=== PATIENT | female | born 1955 | race Caucasian/White ===

== ENCOUNTER 2024-09-03 12:25 | Inpatient (IN) ==
--- NOTE | 2024-09-03 13:14 | Emergency Department Note ---
Impression & Plan Acute dyspnea, Generalized weakness, Acute hypokalemia, Hypomagnesemia, Non-ST elevation MD (NSTEMI), Elevated brain natriuretic peptide (BNP) level, Acute hypoxemic respiratory failure ED Provider Note HISTORY OF PRESENT ILLNESS: Patient is a 69-year-old female presenting with weakness, cough and a fall from standing. Patient reports that for the last 4 days she has been feeling very weak and rundown. She has had a cough this been productive of some yellow- colored sputum. She states that today she was walking when she felt like her legs gave out and she fell to the ground, landing on her right knee and hip. She states that she has been short of breath over the last 4 days as well. She does not wear any supplemental oxygen at baseline. Denies any chest pain with the shortness of breath. Denies any DVT or PE history. She is not on any anticoagulation other than a baby aspirin daily. EMS reports the patient was hypotensive and hypoxic. They state her sats were 86% on room air and blood pressure was 88/42. They started the patient on 6 L supplemental oxygen and gave about 250 cc of fluid and route. On arrival to the ER, the patient does report some slight right knee pain. Denies striking her head or loss of consciousness. She denies passing out. Reports she just does not feel well. ROS: as above PHYSICAL EXAM: Constitutional: Patient appears in no acute distress. HENT: Head: Normocephalic and atraumatic. Eyes: EOMI, PERRL Ears: TM intact without erythema or bulging. External canals without erythema or discharge. Mouth/Throat: Mucous membranes moist. Neck: Trachea midline. Neck supple. No midline cervical spine tenderness to palpation Cardiovascular: RRR, No murmurs, rubs or gallops. Intact distal pulses. Pulmonary/Chest: No respiratory distress. Breath sounds clear and equal bilaterally. No wheezes or rales. Abdominal: Abdomen soft, no tenderness, rebound or guarding. Musculoskeletal: No edema, tenderness or deformity noted. Patient able to straight leg raise bilaterally. No pain with internal and external rotation of the femur. Skin: Warm and dry. No rash, erythema, pallor or cyanosis Psychiatric: Appropriate mood and affect for situation. Neurological: Alert and keenly responsive. CN II-XII grossly intact, moving all extremities equally and fully. MDM: - Vitals signs showed hypoxia. Patient placed on supplemental oxygen. - History obtained via patient. History as above. - Chronic conditions affecting care: HTN - Differential diagnoses include, but are not limited to: Congestive heart failure; acute coronary syndrome; COPD/asthma exacerbation; pulmonary edema; pulmonary embolism; pneumonia; pneumothorax; viral syndrome - Order placed for continuous cardiac monitoring. At this time, monitor showed rate of 76 bpm with normal sinus rhythm, per my interpretation. - External medical records reviewed. - EKG interpreted by myself showed normal sinus rhythm. Rate 81 bpm. QT prolonged at 432. No acute ischemic changes. - Laboratory workup interpreted by myself showed leukocytosis (WBC 13.05); thrombocytopenia (plt 81); elevated INR (1.2); hypokalemia (K 3.1); elevated troponin (567.7); elevated BNP (2036); hypomagnesemia (Mg 1.4); elevated total bilirubin (3.3) - Patient given 1g IV magnesium and 20 mEq IV potassium for electrolyte replacement. 40 mEq PO potassium also ordered. - CXR negative for pneumonia, per my interpretation - Pelvis xray negative for fracture - Xray right knee negative for injury - CT PE negative for PE. Noted to have findings concerning for pulmonary arterial hypertension, per radiologist. - Repeat troponin is still elevated but slightly trending down at 529.0 - Viral respiratory panel negative - VBG grossly unremarkable - Given patient's new oxygen requirement in the setting of her NSTEMI, will admit to hospital service. Patient will need diuresis and echocardiogram performed inpatient. - Discussion was had with leather case finisher about patient's case and need for admission - Hospitalist, Dr. Sterling, consulted for admission - [facility] ASSESSMENT AND PLAN: Diagnosis: acute dyspnea; acute hypoxemic respiratory failure; generalized weakness; acute hypokalemia; hypomagnesemia; NSTEMI; elevated BNP Plan: admit Past Med/Surg History Problem List (Updated 09/03/24 @ 15:30 by Bettina Antunez MD) Acute hypoxemic respiratory failure (Acute) Elevated brain natriuretic peptide (BNP) level (Acute) Non-ST elevation MD (NSTEMI) (Acute) Hypomagnesemia (Acute) Acute hypokalemia (Acute) Generalized weakness (Acute) Acute dyspnea (Acute) Social History Smoking Status: Never smoker Preferred Language: Jordanian Feels Safe at Home: Yes Allergies Allergies Allergy/AdvReac Type Severity Reaction Status Date / Time No Known Allergies Allergy Unverified 09/03/24 14:39 Home Meds Home Medications Medication Instructions Recorded Confirmed alprazolam 0.5 mg tablet 0.5 mg PO DAILY 09/03/24 09/03/24 levothyroxine 112 mcg tablet 112 mcg PO DAILY 09/03/24 09/03/24 multivitamin 1 tab PO DAILY 09/03/24 09/03/24 potassium 1 tab PO DAILY 09/03/24 09/03/24 propranolol 20 mg tablet 20 mg PO BID 09/03/24 09/03/24 sertraline 50 mg tablet 50 mg PO DAILY 09/03/24 09/03/24 Results & Data (ED) Vital Signs Vital Signs - 24 hr 09/03/24 12:34 09/03/24 12:34 09/03/24 13:02 Temperature 37 C Temperature Source Oral Pulse Rate 87 Pulse Rate [Apical] Pulse Rate from SpO2 Sensor Respiratory Rate 18 Blood Pressure 120/61 Blood Pressure [Right Arm] Blood Pressure Mean 80 Blood Pressure Mean [Right Arm] Pulse Oximetry 86 L 86 L Oxygen Delivery Method Room Air Nasal Cannula Room Air Oxygen Flow Rate 0 Sepsis New/Unexplained Change in Mental Status No Sepsis Action Taken by Nursing No Action Required Oxygen Flow Rate - Titration 2 Pulse Oximetry Post Tiitration 95 09/03/24 13:08 09/03/24 13:12 09/03/24 13:33 Temperature Temperature Source Pulse Rate 82 80 77 Pulse Rate [Apical] Pulse Rate from SpO2 Sensor 80 77 Respiratory Rate 23 24 Blood Pressure Blood Pressure [Right Arm] Blood Pressure Mean Blood Pressure Mean [Right Arm] Pulse Oximetry 90 90 Oxygen Delivery Method Nasal Cannula Oxygen Flow Rate 3 Sepsis New/Unexplained Change in Mental Status Sepsis Action Taken by Nursing Oxygen Flow Rate - Titration Pulse Oximetry Post Tiitration 09/03/24 13:39 09/03/24 14:06 09/03/24 14:30 Temperature Temperature Source Pulse Rate 75 Pulse Rate [Apical] 87 75 Pulse Rate from SpO2 Sensor Respiratory Rate 15 14 Blood Pressure Blood Pressure [Right Arm] 106/57 L 130/60 Blood Pressure Mean Blood Pressure Mean [Right Arm] 73 83 Pulse Oximetry 92 92 91 Oxygen Delivery Method Nasal Cannula Nasal Cannula Nasal Cannula Oxygen Flow Rate 3 3 3 Sepsis New/Unexplained Change in Mental Status Sepsis Action Taken by Nursing Oxygen Flow Rate - Titration Pulse Oximetry Post Tiitration Laboratory Data 09/03/24 12:37 09/03/24 14:13 Lab Results 09/03/24 09/03/24 09/03/24 Range/Units 12:37 13:02 14:13 WBC 13.05 H (4.8-10.8) K/ul RBC 4.63 (4.20-5.40) M/uL Hgb 15.0 (12.0-16.0) g/dl Hct 41.8 (37.0-47.0) % MCV 90.3 (80.0-100.0) fL MCH 32.4 (25.0-34.0) pg MCHC 35.9 (32.0-36.0) g/dL RDW Std Deviation 48.4 H (36.4-46.3) fL RDW Coeff of Kiley 14.6 H (11.5-14.5) % Plt Count 81 L (130-400) K/uL MPV 12.0 (9.4-12.4) fL Immature Gran % (Auto) 1.5 % Neut % (Auto) 82.4 % Lymph % (Auto) 6.8 % [place] % (Auto) 6.8 % Eos % (Auto) 2.2 % Baso % (Auto) 0.3 % Neut # (Auto) 10.74 H (1.40-6.50) K/uL Lymph # (Auto) 0.89 L (1.20-3.40) K/uL [place] # (Auto) 0.89 H (0.11-0.59) K/uL Eos # (Auto) 0.29 (0.00-0.50) K/uL Baso # (Auto) 0.04 (0.00-0.20) K/uL Immature Gran # (Auto) 0.20 (0.01-0.20) K/uL Toxic Vacuolation 3+ Platelet Estimate Decreased L (Normal) PT 13.1 H (9.0-12.0) Seconds INR 1.2 H (0.9-1.1) VBG pH 7.42 H (7.36-7.41) VBG pCO2 30 L (38-50) mmHg VBG pO2 47 mmHg VBG HCO3 20 mmol/L VBG O2 Saturation 76.8 % VBG Base Excess -3.8 mEq/L Sodium 132 L (136-145) mmol/L Potassium TNP 3.1 L Chloride 100 (98-107) mmol/L Carbon Dioxide 21 (21-32) mmol/L Anion Gap 11 (3-11) BUN 27 H (6-23) mg/dl Creatinine 1.03 (0.6-1.2) mg/dl Est Cr Clr Drug Dosing Not Reportable eGFR 58.13 BUN/Creatinine Ratio 26.2 H (10-20) Glucose 119 H (70-99(Fasting)) mg/dl Calcium 9.1 (8.6-10.3) mg/dl Magnesium 1.4 L (1.7-2.4) mg/dl Total Bilirubin 3.3 H (0.2-1.0) mg/dl AST TNP 37 ALT 18 (7-52) U/L Alkaline Phosphatase 90 (34-104) U/L Troponin I High Sens 567.7 H* 529.0 H* (0-14) pg/ml B-Natriuretic Peptide 2036 H (0-100) pg/ml Total Protein 6.1 (6.0-8.3) gm/dl Albumin 2.9 L (3.4-5.0) gm/dl Globulin 3.2 (2.5-4.0) gm/dl Albumin/Globulin Ratio 0.9 (0.9-2) Adenovirus (PCR) Not Detected (NotDetected) B. pertussis DNA (PCR) Not Detected (NotDetected) B.parapertussis DNA PCR Not Detected (NotDetected) C. pneumoniae DNA (PCR) Not Detected (NotDetected) Coronavirus OC43 (PCR) Not Detected (NotDetected) Coronavirus HKU1 (PCR) Not Detected (NotDetected) Coronavirus 229E (PCR) Not Detected (NotDetected) SARS-CoV-2 (PCR) Not Detected (NotDetected) Coronavirus NL63 (PCR) Not Detected (NotDetected) Human Metapneumovir PCR Not Detected (NotDetected) Influenza Type A (PCR) Not Detected (NotDetected) Influenza Type B (PCR) Not Detected (NotDetected) M. pneumoniae (PCR) Not Detected (NotDetected) Parainfluenza 1 (PCR) Not Detected (NotDetected) Parainfluenza 2 (PCR) Not Detected (NotDetected) Parainfluenza 3 (PCR) Not Detected (NotDetected) Parainfluenza 4 (PCR) Not Detected (NotDetected) RSV (PCR) Not Detected (NotDetected) Entero/Rhino (PCR) Not Detected (NotDetected) Administered Medications Discontinued Medications Magnesium Sulfate/Dextrose (Magnesium Sulfate / D5w) 1 gm in 100 mls @ 100 mls/hr IV NOW STA Stop: 09/03/24 14:49 Last Admin: 09/03/24 14:20 Dose: 100 mls/hr Documented By: JUAN Ioversol (Optiray 320 125ml) 118 ml IV ONCE ONE Stop: 09/03/24 14:08 Last Admin: 09/03/24 14:07 Dose: 118 ml Documented By: [facility] Imaging Data Radiologist's Impression: Chest CTA 09/03/24 12:47 CT angio chest PE protocol CT DOSE: 697.57 mGy.cm HISTORY: Dyspnea; hypoxia. TECHNIQUE: Multiple CTA images of the chest were obtained after the intravenous administration of 118 ml Optiray. Coronal and sagittal MIPS were obtained from the axial data set and were submitted for review. All measurements were obtained according to NASCET criteria. A dose lowering technique was utilized adhering to the principles of ALARA. COMPARISON STUDY: None FINDINGS: There is no pulmonary consolidation, pleural effusion, or pneumothorax. No enlarged adenopathy. No pericardial effusion. There are coronary artery and aortic calcifications. There is moderate cardiomegaly with prominence of the pulmonary vasculature. Pulmonary veins are prominent. Right ventricle is prominent. There is no pulmonary embolism. No thoracic aortic dissection or aneurysm. There are mild diffuse thoracic spine degenerative changes. IMPRESSION: 1. No pulmonary embolism. 2. Findings suggesting pulmonary arterial hypertension. 3. No pneumonia or pleural effusion. ACT 112: Negative or not required by law. The above report was generated using voice recognition software. It may contain grammatical, syntax or spelling errors. Electronically signed by: Morales Miller M.D. 09/03/2024 2:17 PM Chest X-Ray 09/03/24 12:47 XR chest 1V portable CLINICAL HISTORY: Dyspnea COMPARISON STUDY: None FINDINGS: Heart size and pulmonary vasculature are normal. There are faint reticular opacities at the lateral mid and lower right lung. No effusion, consolidation, or pneumothorax otherwise. IMPRESSION: Possible early pneumonia on the right versus atelectasis or artifact. ACT 112: Negative or not required by law. Electronically signed by: Morales Miller M.D. 09/03/2024 1:57 PM Knee X-Ray 09/03/24 12:47 XR knee RT 3V CLINICAL HISTORY: R knee pain s/p fall COMPARISON: None FINDINGS: Right knee prosthesis shows no hardware complication. No fracture or dislocation. IMPRESSION: No fracture seen. ACT 112: Negative or not required by law. Electronically signed by: Morales Miller M.D. 09/03/2024 1:50 PM Pelvis X-Ray 09/03/24 12:47 XR pelvis 1-2V routine CLINICAL HISTORY: fall from standing COMPARISON: None FINDINGS: Sacroiliac joints and symphysis pubis are intact and there are no fractures within the pelvis or hips. A few clips project over the pelvis. There is moderate bilateral hip osteoarthritis. IMPRESSION: No fractures within the pelvis or hips. ACT 112: Negative or not required by law. Electronically signed by: Sixto Vasquez M.D. 09/03/2024 1:50 PM Discharge Plan Visit Data Chief Complaint: Illness Stated Complaint: FALL, SOB ED Provider: Bettina Antunez Discharge Problem: Acute dyspnea, Generalized weakness, Acute hypokalemia, Hypomagnesemia, Non-ST elevation MD (NSTEMI), Elevated brain natriuretic peptide (BNP) level, Acute hypoxemic respiratory failure Forms Stand Alone Forms: My [facility] Prescriptions Prescriptions: No Action alprazolam 0.5 mg tablet 0.5 mg PO DAILY propranolol 20 mg tablet 20 mg PO BID sertraline 50 mg tablet 50 mg PO DAILY levothyroxine 112 mcg tablet 112 mcg PO DAILY multivitamin [Multi-Vitamin] Tablet 1 tab PO DAILY potassium 1 tab PO DAILY Rx Instructions: OTC unknown dose Referrals Referrals: PCP,NO [Physician] -
[2024-09-03 13:23] LABS: Base Excess VBG -3.8 mEq/L; HCO3 VBG 20 mmol/L; Oxygen Saturation VBG 76.8 %; PCO2 VBG 30 mmHg (38-50); PO2 VBG 47 mmHg; pH VBG 7.42 (7.36-7.41)
[2024-09-03 13:38] LABS: INR 1.2 (0.9-1.1); Prothrombin Time 13.1 Seconds (9.0-12.0)
[2024-09-03 13:43] LABS: Basophils # (auto) 0.04 K/uL (0.00-0.20); Basophils % (auto) 0.3 %; Eosinophils # (auto) 0.29 K/uL (0.00-0.50); Eosinophils % (auto) 2.2 %; Hematocrit (blood only) 41.8 % (37.0-47.0); Immature Granulocytes % (auto) 1.5 %; Lymphocytes # (auto) 0.89 K/uL (1.20-3.40); Lymphocytes % (auto) 6.8 %; Mean Corpuscular Hemoglobin 32.4 pg (25.0-34.0); Mean Corpuscular Hgb Conc 35.9 g/dL (32.0-36.0); Mean Corpuscular Volume 90.3 fL (80.0-100.0); Monocytes # (auto) 0.89 K/uL (0.11-0.59); Monocytes % (auto) 6.8 %; Neutrophils # (auto) 10.74 K/uL (1.40-6.50); Neutrophils % (auto) 82.4 %; Platelet Count 81 K/uL (130-400); Platelet Estimate Decreased (Normal); RDW Coefficient of Variation 14.6 % (11.5-14.5); RDW Standard Deviation 48.4 fL (36.4-46.3); Red Blood Count 4.63 M/uL (4.20-5.40); White Blood Count 13.05 K/ul (4.8-10.8)
[2024-09-03 13:45] LABS: Toxic Vacuolation 3+
[2024-09-03 13:46] LABS: Alanine Aminotransferase 18 U/L (7-52); Albumin Globulin Ratio 0.9 (0.9-2); Albumin Level 2.9 gm/dl (3.4-5.0); Alkaline Phosphatase 90 U/L (34-104); Anion Gap 11 (3-11); BUN Creatinine Ratio 26.2 (10-20); Bilirubin,Total 3.3 mg/dl (0.2-1.0); Blood Urea Nitrogen 27 mg/dl (6-23); Calcium 9.1 mg/dl (8.6-10.3); Carbon Dioxide 21 mmol/L (21-32); Chloride 100 mmol/L (98-107); Globulin 3.2 gm/dl (2.5-4.0); Glucose 119 mg/dl (70-99(Fasting)); Magnesium 1.4 mg/dl (1.7-2.4); Sodium 132 mmol/L (136-145); Total Protein 6.1 gm/dl (6.0-8.3); Troponin I High Sensitivity 567.7 pg/ml (0-14)
--- NOTE | 2024-09-03 13:51 | XRay Report ---
XR knee RT 3V CLINICAL HISTORY: R knee pain s/p fall COMPARISON: None FINDINGS: Right knee prosthesis shows no hardware complication. No fracture or dislocation. IMPRESSION: No fracture seen. ACT 112: Negative or not required by law. Electronically signed by: Morales Miller M.D. 09/03/2024 1:50 PM
--- NOTE | 2024-09-03 13:51 | XRay Report ---
XR pelvis 1-2V routine CLINICAL HISTORY: fall from standing COMPARISON: None FINDINGS: Sacroiliac joints and symphysis pubis are intact and there are no fractures within the pel vis or hips. A few clips project over the pelvis. There is moderate bilateral hip osteoarthritis. IMPRESSION: No fractures within the pelvis or hips. ACT 112: Negative or not required by law. Electronically signed by: Sixto Vasquez M.D. 09/03/2024 1:50 PM
--- NOTE | 2024-09-03 13:58 | XRay Report ---
XR chest 1V portable CLINICAL HISTORY: Dyspnea COMPARISON STUDY: None FINDINGS: Heart size and pulmonary vasculature are normal. There are faint reticular opacities at the lateral mid and lower right lung. No effusion, consolidation, or pneumothorax otherwise. IMPRESSION: Possible early pneumonia on the right versus atelectasis or artifact. ACT 112: Negative or not required by law. Electronically signed by: Morales Miller M.D. 09/03/2024 1:57 PM
[2024-09-03] MEDS: OPTIRAY 320 125ml IV ONE (14:07)
[2024-09-03 14:09] LABS: Adenovirus PCR Not Detected (NotDetected); Bordetella parapertussis PCR Not Detected (NotDetected); Bordetella pertussis PCR Not Detected (NotDetected); Chlamydia pneumoniae PCR Not Detected (NotDetected); Coronavirus 229E PCR Not Detected (NotDetected); Coronavirus CoV-2 (COVID19)PCR Not Detected (NotDetected); Coronavirus HKU1 PCR Not Detected (NotDetected); Coronavirus NL63 PCR Not Detected (NotDetected); Coronavirus OC43PCR Not Detected (NotDetected); Human Metapneumovirus PCR Not Detected (NotDetected); Influenza A PCR Not Detected (NotDetected); Influenza B PCR Not Detected (NotDetected); Mycoplasma pneumoniae PCR Not Detected (NotDetected); Parainfluenza Virus 1 PCR Not Detected (NotDetected); Parainfluenza Virus 2 PCR Not Detected (NotDetected); Parainfluenza Virus 3 PCR Not Detected (NotDetected); Parainfluenza Virus 4 PCR Not Detected (NotDetected); Respiratory Syncytial VirusPCR Not Detected (NotDetected); Rhinovirus/Enterovirus PCR Not Detected (NotDetected)
--- NOTE | 2024-09-03 14:16 | Electrocardiogram Report ---
Test Reason : Blood Pressure : */* mmHG Vent. Rate : 81 BPM Atrial Rate : 81 BPM P-R Int : 180 ms QRS Dur : 94 ms QT Int : 432 ms P-R-T Axes : 48 4 12 degrees QTcB Int : 501 ms Normal sinus rhythm Incomplete right bundle branch block Prolonged QT Abnormal ECG No previous ECGs available Confirmed by Aramis Yarbrough ([id number]) on 09/03/2024 2:16:40 PM Referred By: Confirmed By: Aramis Yarbrough
--- NOTE | 2024-09-03 14:19 | CT Scan Report ---
CT angio chest PE protocol CT DOSE: 697.57 mGy.cm HISTORY: Dyspnea; hypoxia. TECHNIQUE: Multiple CTA images of the chest were obtained after the intravenous administration of 118 ml Optiray. Coronal and sagittal MIPS were obtained from the axial data set and were submitted for review. All measurements were obtained according to NASCET criteria. A dose lowering technique was u tilized adhering to the principles of ALARA. COMPARISON STUDY: None FINDINGS: There is no pulmonary consolidation, pleural effusion, or pneumothorax. No enlarged adenopa thy. No pericardial effusion. There are coronary artery and aortic calcifications. There is moderate cardiomegaly with prominence of the pulmonary vasculature. Pulmonary veins are prominent. Right ventr icle is prominent. There is no pulmonary embolism. No thoracic aortic dissection or aneurysm. There a re mild diffuse thoracic spine degenerative changes. IMPRESSION: 1. No pulmonary embolism. 2. Findings suggesting pulmonary arterial hypertension. 3. No pneumonia or pleural effusion. ACT 112: Negative or not required by law. The above report was generated using voice recognition software. It may contain grammatical, syntax o r spelling errors. Electronically signed by: Morales Miller M.D. 09/03/2024 2:17 PM
[2024-09-03] MEDS: MAGNESIUM SULFATE / D5W 1 GM/100 ML BAG IV STA (14:20)
[2024-09-03 14:50] LABS: Potassium 3.1 mmol/L (3.5-5.1)
--- NOTE | 2024-09-03 15:30 | History & Physical Report ---
Date of Service September 03, 2024 Assessment & Plan (1) UTI (urinary tract infection): Plan: 69-year-old female who presents with 4 days of chills, rigors, shortness of breath, and dysuria. She was recommended for admission for suspected new onset CHF from possible recent MD. On evaluation she is found to have infected. UA, and has additional respiratory symptoms including sputum production and color change in addition shortness of breath so is been covered for both/UTI. She does have an elevated but downtrending troponin and is chest pain-free on admission. EKG is without acute ischemic change. Echo was ordered, DDx includes stress ischemia and recent ischemic event. Weakness Multifactorial. Suspected UTI, heart failure and atypical pneumonia within the differential CTAchest does not show evidence of PE. Findings suggestive of PAH. No signi ficant pneumonia/pleural effusion is reported, on review there are hazy densities of the right lower/right middle lobe. Could represent fluid versus atypical pneumonia Complicated UTI, suspect gram-negative bacteremia, sepsis Patient meets sepsis criteria on admission consultation due to leukocytosis, tachypnea. She is not hypotensive or tachycardic Patient has had dysuria, polyuria, fever, and chills for the last 4 days all suspicious for UTI UA ordered on admitting assessment. Infected appearing, UCx pending Rocephin has been ordered Lactic ordered Blood cultures ordered due to leukocytosis, suspected source, and hypoxia. 30 cc/kg septic dosing would be 1704 IBW, this is deferred due to concerns for CHF and patient is currently normotensive and not tachycardic Atypical pneumonia Patient reports productive cough with yellow sputum, fevers, chills and shaking chills for 4 days consistent with infectious source. She does have a leukocytosis. CT does not show a lobar pneumonia however there are hazy opacities in the right lower lobe on review. May present fluid but given cough, sputum change, Pro-Stewart elevation, and leukocytosis will cover for potential atypical pneumonia and add doxycycline. Demand ischemia versus recent MD, ?new HF Patient has no chest pain on admission however she does report she has had chest pressure lasting 1 to 2 minutes twice in the prior 4 days. She does note that she had "freezing chills "when this happened suspicious for rigors. Denies sweating or worsened dyspnea during these episodes Troponin is elevatedAt 567, downtrending at 529. This may be demand in the setting of acute infection; however given chest pain and acute rapid worsening shortness of breath and downtrending troponin a recent ischemic event is within differential Echo ordered Repeat x-ray for any recurrent chest pain Lasix IV daily ordered. Will defer aggressive diuresis given concerns for infection until BP is stable and patient has been on antibiotics DVT prophylaxis: Lovenox Disposition: PCU Diet: Heart healthy CODE STATUS: DNR/DNI, discussed with patient at bedside (2) Acute hypoxemic respiratory failure: (3) Non-ST elevation MD (NSTEMI): (4) Elevated brain natriuretic peptide (BNP) level: History of Present Illness Primary Care Provider: DO Ti Gómez Jaylan is a 69-year-old female with a past medical history of hypothyroidism, anxiety/depression who presents with weakness, cough, and a fa ll. She has been weak and fatigued for 4 days, and has had a cough productive for yellowish sputum. On presentation she is hypotensive, hypoxic, and fatigue appearing. She has some right knee pain after reporting that she felt at the ground after her legs gave out which caused her to land on her right knee and hip. She did not have any presyncope/syncope, but felt that she was just too weak and her legs gave out. WBC 13.05 VBG is with mild respiratory alkalosis Troponin 567, repeat 529. BNP 2036 CTAchest: No PE, no solid date of pneumonia, no pleural effusion. Finding suggestive of PAH. Review? Some hazy opacities of the right lower lobe. X-ray hip/pelvis/right knee: No fractures BioFire negative Per patient about 4 days ago she started to have more shortness of breath, cough, prodcutive cough for thick yellow sputum, and fatigue. She endorses shaking chills around 4 days ago, they have seemed to continue the last few days. Did have jeremy echest discomfort under her sternum which has not recurrent since yesterday. Happened around 4 days ago and yesterday, only lasted 1-2 minutes. No sweating, actually felt freezing and shakey when it happened. She has had dysuria for the last 4 days with polyuria and urgency no abdominal appetite. Poor appetite. Has had some loose bowels without blood or melena. Medical History: Reviewed Medications: Reviewed Surgical History: Reviewed Family history: Reviewed Allergies: Reviewed. NKMA. Social History: No tobacco. Very rare alcohol use. Code Status: Adis Tian her son would be surrogate DM. DNR/DNI, discussed with aptient on admit. [place] last note reviewed: Hypertension well-controlled Hypothyroidism stable Anxiety as noted Resting tremors although with variable response to propranolol History of peptic ulcer, stable EKG: Normal sinus rhythm, incomplete right bundle branch block, QT 501. Allergies Allergy/AdvReac Type Severity Reaction Status Date / Time No Known Allergies Allergy Unverified 09/03/24 14:39 Home Medications Medication Instructions Recorded Confirmed Type alprazolam 0.5 mg tablet 0.5 mg PO DAILY 09/03/24 09/03/24 History levothyroxine 112 mcg tablet 112 mcg PO DAILY 09/03/24 09/03/24 History multivitamin 1 tab PO DAILY 09/03/24 09/03/24 History potassium 1 tab PO DAILY 09/03/24 09/03/24 History propranolol 20 mg tablet 20 mg PO BID 09/03/24 09/03/24 History sertraline 50 mg tablet 50 mg PO DAILY 09/03/24 09/03/24 History Past Med/Surg History Problem List (Updated 09/03/24 @ 16:25 by Chris Sterling MD) UTI (urinary tract infection) Acute hypoxemic respiratory failure (Acute) Elevated brain natriuretic peptide (BNP) level (Acute) Non-ST elevation MD (NSTEMI) (Acute) Hypomagnesemia (Acute) Acute hypokalemia (Acute) Generalized weakness (Acute) Acute dyspnea (Acute) Social History Smoking Status: Never smoker Preferred Language: Greenlandic Feels Safe at Home: Yes Results & Data Results & Data Vital Signs (Past 12 Hours) Vital Signs Temp Pulse Pulse Resp BP BP Pulse Ox 09/03/24 14:30 75 14 130/60 91 09/03/24 14:06 75 15 92 09/03/24 13:39 87 106/57 L 92 09/03/24 13:33 77 24 90 09/03/24 13:12 80 23 90 09/03/24 13:08 82 09/03/24 13:02 09/03/24 12:34 86 L 09/03/24 12:34 37 C 87 18 120/61 86 L O2 Del Method O2 Flow Rate 09/03/24 14:30 Nasal Cannula 3 09/03/24 14:06 Nasal Cannula 3 09/03/24 13:39 Nasal Cannula 3 09/03/24 13:33 Nasal Cannula 3 09/03/24 13:12 09/03/24 13:08 09/03/24 13:02 Room Air 09/03/24 12:34 Nasal Cannula 0 09/03/24 12:34 Room Air PG Care Time/CCT Total # of Minutes Spent Total Time Spent with Patient: Total time spent is greater than 50% in coordination of care (as documented) at patient's floor/unit and/or counseling patient: Coding Level of Care Code 11416 INT INP/OBS CARE MIN Diagnoses UTI (urinary tract infection) N39.0 Acute hypoxemic respiratory failure J96.01 Non-ST elevation MD (NSTEMI) I21.4 Elevated brain natriuretic peptide (BNP) level R79.89
[2024-09-03] MEDS: POTASSIUM CHLORIDE CRTAB 20 MEQ TABCR PO STA (15:33)
[2024-09-03] MEDS: POTASSIUM CHLORIDE / WTR 10 MEQ/100 ML PLCT IV SCH (15:34)
[2024-09-03] MEDS ORDERED: FUROSEMIDE 40 MG/4 ML VIAL IV SCH (17:00)
[2024-09-03] MEDS: FUROSEMIDE 40 MG/4 ML VIAL IV SCH (17:03)
[2024-09-03] MEDS: MAGNESIUM SULFATE / D5W 1 GM/100 ML BAG IV ONE (17:03)
[2024-09-03 17:05] LABS: Appearance Urine Cloudy (Clear); Bacteria Urine Automated 4+ (None Seen); Bilirubin Urine Negative (Negative); Blood Urine 2+ (Negative); Cast Urine Automated 0-2 /lpf (0-2); Color Urine Dark Yellow; Epithelial Cell Urine Auto 0-2 /hpf (0-2); Glucose Urine UA Negative (Negative); Ketones Urine Trace (Negative); Leukocyte Esterase Urine 3+ (Negative); Nitrite Urine Negative (Negative); Protein Urine Trace (Negative); RBC Urine Automated >20 /hpf (0-2); Specific Gravity Urine 1.042 (1.000-1.030); Urobilinogen Urine Negative (Negative); WBC Urine Automated >50 /hpf (0-5); pH Urine 7.5 (4.5-7.5)
[2024-09-03] MEDS: cefTRIAXone SODIUM 2,000 MG/50 ML BAG IV STA (17:35)
[2024-09-03] MEDS: DOXYCYCLINE HYCLATE 100 MG in DEXTROSE 5% MINI-B 100 ML IV SCH (17:35)
[2024-09-03] MEDS ORDERED: Patient's HEIGHT &/or WEIGHT Needed SCH (18:15)
[2024-09-03] MEDS ORDERED: INFLUENZA VACC TS2024-25(65y+)/PF (IIV3) 0.5mL Syr IM ONE (19:50)
[2024-09-03] MEDS: Patient's HEIGHT &/or WEIGHT Needed STA (20:06)
[2024-09-03] MEDS: PROPRANOLOL HCL 20 MG TAB PO SCH (20:14)
[2024-09-03] MEDS: ENOXAPARIN INJ 40 MG/0.4 ML SYR SQ SCH (20:14)
[2024-09-03] MEDS ORDERED: Nursing to Pharmacy Communication SCH (20:15)
[2024-09-03] MEDS: ALPRAZolam 0.5 MG TABLET PO SCH (20:45)
[2024-09-04] MEDS: ACETAMINOPHEN 325 MG TAB PO PRN (01:52)
--- OUTSIDE RECORDS SUMMARY | 2024-09-04 05:31 | External Medical Summary | Continuity of Care Document ---
Author Name Unknown Organization [address] Address [address] [place] [address] [phone] Care Team Providers Care Water Taxi Captain Name Role Phone Destini Alexandra Primary Care P hysicizaria [phone] Encounter [facility] KALPESHR [id number] Date(s): 05/03/24 - 05/03/[address] [facility] [address] [facility], [facility] [address] [place] [address] [place] [phone] Encounter Diagnosis Dysuria(Discharge Diagnosis) - 05/03/24 Discharge Disposition: Home or Self Care Attending Physician: CHAPO Judd Shari A Referring Physician: CHAPO Judd Shari A Allergies, Adverse Reactions, Alerts No Known Medication Allergies Assessment and Plan Extracted from: Title:TeleHealth Visit Note Author:CHAPO Judd Shari A Date:05/03/24 Dysuria Acute, goal resolution. Obtain UA and culture at lab.Due to history and symptoms, likely is UTI, high clinical suspicion.Macrobid sent to pharmacy, will DC if results negative for infection Time: 20mins 5- pre-visit chart review 10- visit, inclusive of history, exam, and discussion of assessment/plan 5- post-visit documentation/orders/coordination of care Medications ALPRAZolam 0.5 mg oral tablet Start: 04/18/24 1:11:00 PM EDT, 1 tab, PO, Daily, PRN: as needed for anxiety Start Date: 04/18/24 Status: Ordered amLODIPine 5 mg oral tablet Start: 04/18/24 1:11:00 PM EDT, 1 tab, PO, Daily Start Date: 04/18/24 Status: Ordered B-Plex (Vitamin B Complex) oral tablet Start: 04/18/24 1:12:00 PM EDT, 1 tab, PO, Daily Start Date: 04/18/24 Status: Ordered levothyroxine 112 mcg (0.112 mg) oral tablet Start: 04/18/24 1:01:00 PM EDT, 1 tab, PO, Daily Start Date: 04/18/24 Status: Ordered Macrobid 100 mg oral capsule Start: 05/03/24 9:51:00 AM EDT, 1 cap, PO, bid, Disp# 14 cap, Pharmacy: [id number] Start Date: 05/03/24 Stop Date: 05/10/24 Status: Ordered Probiotic Formula Start: 04/18/24 1:13:00 PM EDT Start Date: 04/18/24 Status: Ordered propranolol 20 mg oral tablet Start: 04/18/24 1:01:00 PM EDT, 1 tab Start Date: 04/18/24 Status: Ordered sertraline 50 mg oral tablet Start: 04/18/24 1:10:00 PM EDT, 1 tab, PO, Daily Start Date: 04/18/24 Status: Ordered Vitamin D and K oral tablet Start: 04/18/24 1:12:00 PM EDT Start Date: 04/18/24 Status: Ordered vitamin E Start: 04/18/24 1:13:00 PM EDT Start Date: 04/18/24 Status: Ordered Problem List Condition Confirmation Course Effective Dates Status H ealth Status Informant Anxiety Confirmed Active Hx of peptic ulcer Confirmed Active Hx of methicillin resistant Staphylococcus aureus infection Confirmed Active HTN (hypertension) Confirmed Active Hypothyroid Confirmed Active Resting tremor Confirmed Active Diagnosis Diagnosis Type Effective Dates Health Status Clini rola Service Informant Dysuria Discharge Diagnosis 05/03/24 Non-Specified Social History Social History Type Response Smoking Status Never smoked cigaret sally Sex Female Sex Representation Female (finding) FCM Outpt Note * CHAPO Judd Shari A: PERFORM, MODIFY Event Display: FCM Outpt Note Authored Date: TeleHealth Visit Note I have confirmed the patients name and date of . The patient has consented to this service,and I have advised the patient that this is a billable visit for which they may be subject to a copay. The patient initiated this visit after they were informed of the availability of TeleHealth for this medically necessary visit. I am located at my office. The patient is located at home. This visit was conducted via live audio/video technology via [email or web address]. Chief Complaint sick visit History of Present Illness 69 y.o. female here today via telehealth for sick visit. Thinks may have UTI. Symptoms for 2-3 days, worsening. Lower back and abd discomfort and pain with urinating. H/o UTIs. No fever. Review of Systems Constitutional: No fever, No chills, No fatigue._ Respiratory: No shortness of breath, No cough, No wheezing. _ Cardiovascular: no lightheadedness/presyncope, No chest pain, No palpitations._ Gastrointestinal: No nausea, No vomiting, No diarrhea, No constipation, No heartburn Musculoskeletal:No neck pain, No joint pain, No muscle pain, No decreased range of motion, No trauma._ Skin: No rash, No pruritus, No breakdown._ Neurologic:No abnormal balance, No numbness, No tingling, No headache._ Physical Exam VS unable to obtain, telehealth Gen: alert and oriented, pleasant Heent: NC/AC Neck: supple RESP: respirations even, nonlabored Psych: insight and affect appropriate Assessment/Plan Dysuria Acute, goal resolution. Obtain UA and culture at lab.Due to history and symptoms, likely is UTI, high clinical suspicion.Macrobid sent to pharmacy, will DC if results negative for infection Time: 20mins 5- pre-visit chart review 10- visit, inclusive of history, exam, and discussion of assessment/plan 5- post-visit documentation/orders/coordination of care Problem List/Past Medical History Ongoing Anxiety HTN (hypertension) Hx of methicillin resistant Staphylococcus aureus infection Hx of peptic ulcer Hypothyroid Resting tremor Medications ALPRAZolam(ALPRAZolam 0.5 mg oral tablet), 0.5 mg= 1 tab, PO, Daily, PRN amLODIPine(amLODIPine 5 mg oral tablet), 5 mg= 1 tab, PO, Daily bifidobacterium-lactobacillus(Probiotic Formula) levothyroxine(levothyroxine 112 mcg (0.112 mg) oral tablet), 112 mcg= 1 tab, PO, Daily multivitamin(B-Plex (Vitamin B Complex) oral tablet), 1 tab, PO, Daily multivitamin(Vitamin D and K oral tablet) propranolol(propranolol 20 mg oral tablet), 20 mg= 1 tab sertraline(sertraline 50 mg oral tablet), 50 mg= 1 tab, PO, Daily vitamin E Allergies No Known Medication Allergies Social History Smoking Status Never smoked cigarettes Alcohol - Denies Alcohol Use Sexual - No Sexual Activity Substance Abuse - Denies Substance Abuse Tobacco - Denies Tobacco Use Family History Heart attack: Father. Health Status Family Member(s) Recommendations Health Maintenance Pending(in the next year) OverDue Adult Influenza Vaccine due01/28/24and every 1year Due Adult COVID-19 Vaccination due05/03/24Unknown Frequency Adult Social Determinants of Health Screening due05/03/24Unknown Frequency Adult Tdap/Td Vaccine due05/03/24Unknown Frequency Breast Cancer Screening due05/03/24Unknown Frequency Colorectal Cancer Screening due05/03/24nown Frequency Hepatitis C Screening due05/03/24One-time only Lipid Screening due05/03/24Unknown Frequency Medicare Annual Wellness Visit due05/03/24and every 1year Osteoporosis Screening due05/03/24One-time only Pneumococcal Vaccine Older Adults due05/03/24One-time only Shingles Vaccine due05/03/24One-time only Due In Future Body Mass Index not due until04/19/25and every Satisfied(in the past 1 year) Satisfied Body Mass Index on04/18/24.Satisfied by RL Leslie Angela Electronic Signature on File Electronically Reviewed/Signed by: CHAPO Bassett Author Signature Dt/Tm:05/03/2024 09:56 AM Department of Family Medicine [facility] Patient Care team information Care Team Personnel Name: Dakota Hidalgo DO, Mariana Annette Position: Physician - Family Med Member Role: Primary Care Provider Address: [address] [place] [address] [place]
--- OUTSIDE RECORDS SUMMARY | 2024-09-04 05:31 | External Medical Summary | Continuity of Care Document ---
Author Name Unknown Organization [address] Address [address] [place] [phone] Care Team Providers Care Touch Up Painter Hand Name Role Phone Destini Alexandra Primary Care P sian [phone] Encounter [facility]ALPES[facility] [id number] Date(s): 06/07/24 - 06/07/[address] [place] [address], [address] [address] [place] [phone] Encounter Diagnosis Right knee buckling(Discharge Diagnosis) - 06/07/24 Discharge Disposition: Home or Self Care Attending Physician: Dakota Hidalgo DO, Mariana Annette Referring Physician: Dakota Hidalgo DO, Mariana Annette Allergies, Adverse Reactions, Alerts No Known Medication Allergies Assessment and Plan Extracted from: Title:TeleHealth Visit Note Author:Dakota medel DO, Mariana Annette Date:06/07/24 Right knee buckling Will start with PT Will have pt make in-person appointment to do proper exam Medications ALPRAZolam 0.5 mg oral tablet Start: 05/16/24 11:15:00 AM EDT, 1 tab, PO, Daily, Disp# 30 tab, Refills: 0, PRN: as needed for anxiety, Pharmacy: [id number] Start Date: 05/16/24 Status: Ordered amLODIPine 5 mg oral tablet [...] cap, PO, bid, Disp# 14 cap, Pharmacy: [id number] Start Date: 05/03/24 Stop Date: 05/10/24 Status: Ordered Probiotic Formula Start: 04/18/24 1:13:00 PM EDT Start Date: 04/18/24 Status: Ordered propranolol 20 mg oral tablet Start: 04/18/24 1:01:00 PM EDT, 1 tab Start Date: 04/18/24 Status: Ordered sertraline 50 mg oral tablet Start: 05/16/24 11:15:00 AM EDT, 1 tab, PO, Daily, Disp# 90 tab, Refills: 3, Pharmacy: [id number] Start Date: 05/16/24 Status: Ordered Vitamin D and K oral [...] Diagnosis Diagnosis Type Effective Dates Health Status Cl inical Service Informant Right knee buckling Discharge Diagnosis 06/07/24 Non-Specified Social History Social History Type Response Smoking Status Never smoked cigaret sally Sex Female Sex Representation Female (finding) FCM Outpt Note * Dakota Hidalgo DO, Mariana Annette: PERFORM Event Display: FCM Outpt Note Authored Date: [id number] TeleHealth Visit Note I have confirmed the [...] was conducted via live audio/video technology via [employer]. History of Present Illness Presents via telehealth to discuss knee problems Has had 2 right knee replacements, she notes her knee is getting weak and would like an opinion on what to do 2 weeks ago, her knee buckled and she fell since she has been wearing a leg brace and walking with a cane for stability her last TKA was 2019 or 2020, done in [place] she initially had a knee replacement about 2 years prior and hardware was switched from metal to plastic (?) due to an infection. Physical Exam General: _Alert and oriented, No acute distress Psych: Mood-affect congruence. Speech is of normal pace and content Unable to perform knee exam due to telehealth Assessment/Plan Right knee buckling Will start with PT Will have pt make in-person appointment to do proper exam Attestation Time spent: Pre-visit planning: _5 Biem-lc-kmdq visit: _10 Post-visit (orders/documentation/coordination of care):5 Total visit time: _20 Problem List/Past Medical History Ongoing Anxiety HTN [...] Daily multivitamin(Vitamin D and K oral tablet) nitrofurantoin(Macrobid 100 mg oral capsule), 100 mg= 1 cap, PO, bid propranolol(propranolol 20 mg oral tablet), 20 mg= 1 tab sertraline(sertraline 50 mg oral tablet), 50 mg= 1 tab, PO, Daily, 3 refills vitamin E Allergies No Known Medication Allergies Social History Smoking Status Never smoked cigarettes Alcohol - Denies Alcohol Use Sexual - No Sexual Activity Substance Abuse - Denies Substance Abuse Tobacco - Denies Tobacco Use Family History Heart attack: Father. Health Status Family Member(s) Recommendations Health Maintenance Pending(in the next year) OverDue Adult Influenza Vaccine due01/28/24and every 1year Due Adult COVID-19 Vaccination due06/07/24Unknown Frequency Adult Social Determinants of Health Screening due06/07/24Unknown Frequency Adult Tdap/Td Vaccine due06/07/24Unknown Frequency Breast Cancer Screening due06/07/24Unknown Frequency Colorectal Cancer Screening due06/07/24Unknown Frequency Hepatitis C Screening due06/07/24One-time only Lipid Screening due06/07/24Unknown Frequency Medicare Annual Wellness Visit due06/07/24and every 1year Osteoporosis Screening due06/07/24One-time only Pneumococcal Vaccine Older Adults due06/07/24One-time only Shingles Vaccine due06/07/24One-time only Due In Future Body Mass Index not due until04/19/25and every 366day Satisfied(in the past 1 year) Satisfied Body Mass Index on04/18/24.Satisfied by RL Leslie Angela Electronic Signature on File Electronically Reviewed/Signed by: Destini Hidalgo DO Author Signature Dt/Tm:06/07/2024 01:56 PM Department of Family Medicine [facility] Patient Care team information Care Team Personnel Name: Dakota Hidalgo DO, Mariana Annette Position: Physician - Family Med Member Role: Primary Care Provider Address: [address] [place] [address] [place]
--- OUTSIDE RECORDS SUMMARY | 2024-09-04 05:32 | External Medical Summary | Continuity of Care Document ---
Author Name Unknown Organization [address] Address [address] [place] [phone] Care Team Providers Care Teaching Artist Name Role Phone Destini Alexandra Primary Care P sicizaria [phone] Encounter [facility] KALPESHR [id number] Date(s): 04/18/24 - 04/18/[address], [address] [address] [place] [phone] Encounter Diagnosis Body mass index [BMI] 34.0-34.9, adult(Discharge Diagnosis) - 04/18/24 Lipid screening(Discharge Diagnosis) - 04/18/24 Fatigue(Discharge Diagnosis) - 04/18/24 Encounter to establish care(Discharge Diagnosis) - 04/18/24 HTN (hypertension)(Discharge Diagnosis) - 04/18/24 Anxiety(Discharge Diagnosis) - 04/18/24 Hx of peptic ulcer(Discharge Diagnosis) - 04/18/24 Hx of methicillin resistant Staphylococcus aureus infection(Discharge Diagnosis) - 04/18/24 Resting tremor(Discharge Diagnosis) - 04/18/24 Hypothyroid(Discharge Diagnosis) - 04/18/24 Discharge Disposition: Home or Self Care Attending Physician: Dakota Hidalgo DO, Mariana Annette Referring Physician: Dakota Hidalgo DO, Mariana Annette Allergies, Adverse Reactions, Alerts No Known Medication Allergies Assessment and Plan Extracted from: Title:Office Visit Note Author:Dakota Hidalgo DO, Mariana Annette Date:04/18/24 1.Encounter to establish c are Will obtain her medical records 2.HTN (hypertension) STATUS:Chronic stable. GOAL:Maintain stability. PLAN:Cont current meds,check BMP . 3.Anxiety STATUS:Chronic stable. GOAL:Maintain stability. PLAN:Cont current meds. Will discuss wean from xanaxand alternative meds atfuture visit. . 4.Hx of peptic ulcer STATUS:Resolved GOAL:Maintain stability. PLAN:will obtain records to determine appropriateplan. Unclear why not on PPI. . 5.Hx of methicillin resistant Staphylococcus aureus infection 6.Resting tremor Unclear etiology, likely benign Will refer for neurology eval 7.Hypothyroid STATUS:Chronic stable. DATA:Labs reviewed. GOAL:Maintain stability. PLAN:Check TSH and T4 . Medications ALPRAZolam 0.5 mg oral tablet Start: [...] PO, Daily Start Date: 04/18/24 Status: Ordered Probiotic Formula Start: 04/18/24 1:13:00 [...] PM EDT Start Date: 04/18/24 Status: Ordered Mental Status 04/18/24 Barriers to Learning one year None evide nt Mandatory Health Literacy Documentation Yes Health Literacy Communication Barriers N ever Primary Language Frisian Problem List Condition Confirmation Course Effective Dates Status H ealth Status Informant Anxiety Confirmed Active Hx of peptic ulcer Confirmed Active Hx of methicillin resistant Staphylococcus aureus infection Confirmed Active HTN (hypertension) Confirmed Active Hypothyroid Confirmed Active Resting tremor Confirmed Active Diagnosis Diagnosis Type Effective Dates Health Status Clinical Service Informant Anxiety Discharge Diagnosis 04/18/24 Non-Specified Hx of methicillin resistant Staphylococcus aureus infection Discharge Diagnosis 04/18/24 Non-Specified Lipid screening Discharge Diagnosis 04/18/24 Non-Specified Hypothyroid Discharge Diagnosis 04/18/24 Non-Specified Fatigue Discharge Diagnosis 04/18/24 Non-Specified Encounter to establish care Discharge Diagnosis 04/18/24 Non-Specified HTN (hypertension) Discharge Diagnosis 04/18/24 Non-Specified Body mass index [BMI] 34.0-34.9, adult Discharge Diagnosis 04/18/24 Non-Specified Resting tremor Discharge Diagnosis 04/18/24 Non-Specified Hx of peptic ulcer Discharge Diagnosis 04/18/24 Non-Specified Vital Signs Most recent to oldest [Reference Range]: 1 Height 167 cm (04/18/24 1:13 PM) Patient Weight 95.4 kg (04/18/24 1:13 PM) Body Mass Index 34.21 kg/m2 (04/18/24 1:13 PM) Temperature [36.5-37.9 DegC] 36.1 DegC *LOW* (04/18/24 1:13 PM) Heart Rate 56 bpm (04/18/24 1:13 PM) Respiratory Rate 20 br/min (04/18/24 1:13 PM) Blood Pressure 134/76mmHg (04/18/24 1:13 PM) Cuff Pulse Pressure 58 mmHg (04/18/24 1:13 PM) Social History Social History Type Response Smoking Status Never smoked cigaret sally Sex Female Sex Representation Female (finding) FCM Outpt Note * Dakota Hidalgo DO, Mariana Annette: PERFORM Event Display: FCM Outpt Note Authored Date: Chief Complaint establish care History of Present Illness Patient presents to establish care. PMH: HTN, hypothyroidism, anxiety, hx ofMRSA, stomach ulcer PSH: abdominal hernia repair, left oophorectomy, stomach ulcer repair FH: father- NH, mother- living SH: Moved from [place] (previously in [place]), son lives here. Never smoker, no alcohol. HTN - well controlled on amlodipine 5mg Hypothyroidism - has been stable on current dose of levothyroxine. Anxiety - on sertraline and alprazolam takes this nightly to help her go to sleep. Previously was on temazepam, tried trazodone w/o help. Resting tremors - on propranolol per her previous PCP, does not think this is working. Has not seenneurology for this. Recently hospitalized for urosepsis in December, feels like she is not yet at her baseline, her tremor is worse. Had colonoscopy and endoscopy October 2022 Physical Exam Vitals & Measurements T:36.1C HR:56(Monitored) RR:20 BP:134/76 SpO2:97% HT:167cm WT:95.4kg WT:95.400kg(Dosing) BMI:34.21 PHQ2 Data(Data Documented on:04/18/2024 13:13) Emotional health assessment NEGATIVE General: _Alert and oriented, No acute distress, resting tremor Cardiovascular: _Normal rate, Regular rhythm, No murmur, No gallop. Respiratory: _Lungs are clear to auscultation, Respirations are non-labored, Breath sounds are equal Psych: Mood-affect congruence. Reports no SI/HI. Speech is of normal pace and content Assessment/Plan 1.Encounter to establish care Will obtain her medical records 2.HTN (hypertension) STATUS:Chronic stable. GOAL:Maintain stability. PLAN:Cont current meds,check BMP . 3.Anxiety STATUS:Chronic stable. GOAL:Maintain stability. PLAN:Cont current meds. Will discuss wean from xanaxand alternative meds atfuture visit. . 4.Hx of peptic ulcer STATUS:Resolved GOAL:Maintain stability. PLAN:will obtain records to determine appropriateplan. Unclear why not on PPI. . 5.Hx of methicillin resistant Staphylococcus aureus infection 6.Resting tremor Unclear etiology, likely benign Will refer for neurology eval 7.Hypothyroid STATUS:Chronic stable. DATA:Labs reviewed. GOAL:Maintain stability. PLAN:Check TSH and T4 . Attestation Time spent: Pre-visit planning: _4 Fjul-fg-abbb visit: _30 Post-visit (orders/documentation/coordination of care):15 Total visit time: _49 Problem List/Past Medical History Ongoing Anxiety HTN (hypertension) Hx of methicillin resistant Staphylococcus aureus infection Hx of peptic ulcer Resting tremor Medications ALPRAZolam(ALPRAZolam 0.5 mg oral [...] Substance Abuse Tobacco - Denies Tobacco Use Recommendations Health Maintenance Pending(in the next year) OverDue Adult Influenza Vaccine due01/28/24and every 1year Due Medicare Annual Wellness Visit due04/18/24and every 1year Satisfied(in the past 1 year) There are no satisfied recommendations within the defined date range Electronic Signature on File Electronically Reviewed/Signed by: Destini Hidalgo DO Author Signature Dt/Tm:04/18/2024 02:15 PM Department of Family Medicine [facility] Patient Care team information Care Team Personnel Name: Dakota Hidalgo DO, Mariana Annette Position: Physician - Family Med Member Role: Primary Care Provider Address: [address] [place] [address] [place]
[2024-09-04 06:13] LABS: Basophils # (auto) 0.05 K/uL (0.00-0.20); Basophils % (auto) 0.4 %; Eosinophils # (auto) 0.01 K/uL (0.00-0.50); Eosinophils % (auto) 0.1 %; Hemoglobin 13.6 g/dl (12.0-16.0); Immature Granulocytes # (auto) 0.17 K/uL (0.01-0.20); Immature Granulocytes % (auto) 1.2 %; Lymphocytes # (auto) 1.37 K/uL (1.20-3.40); Lymphocytes % (auto) 9.9 %; Mean Corpuscular Hemoglobin 32.2 pg (25.0-34.0); Mean Corpuscular Hgb Conc 35.8 g/dL (32.0-36.0); Mean Corpuscular Volume 89.8 fL (80.0-100.0); Mean Platelet Volume 12.1 fL (9.4-12.4); Monocytes # (auto) 1.37 K/uL (0.11-0.59); Monocytes % (auto) 9.9 %; Neutrophils # (auto) 10.83 K/uL (1.40-6.50); Neutrophils % (auto) 78.5 %; Platelet Count 77 K/uL (130-400); RDW Standard Deviation 49.1 fL (36.4-46.3); Red Blood Count 4.23 M/uL (4.20-5.40)
[2024-09-04 06:33] LABS: BUN Creatinine Ratio 25.9 (10-20); Calcium 8.3 mg/dl (8.6-10.3); Creatinine Clr Calc Pharmacy 50.3 ml/min; Potassium 3.5 mmol/L (3.5-5.1)
[2024-09-04] MEDS: LEVOTHYROXINE SODIUM 112 MCG TABLET PO SCH (06:41)
[2024-09-04] MEDS: SERTRALINE HCL 50 MG TABLET PO SCH (08:10)
[2024-09-04] MEDS: MULTIVITAMIN TAB PO SCH (08:10)
--- NOTE | 2024-09-04 08:39 | XCELERA ---
[id number] \\[id number]}[id number]
--- NOTE | 2024-09-04 08:56 | Hospitalist Progress Note ---
Date of Service September 04, 2024 Assessment & Plan (1) Acute hypoxemic respiratory failure: Plan: 69-year-old female who presents with 4 days of chills, rigors, shortness of breath, and dysuria. She was recommended for admission for suspected new onset CHF from possible recent AR. On evaluation she is found to have infected. UA, and has additional respiratory symptoms including sputum production and color change in addition shortness of breath so is been covered for both/UTI. She does have an elevated but downtrending troponin and is chest pain-free on admission. EKG is without acute ischemic change. Echo was ordered, DDx includes stress ischemia and recent ischemic event. Atypical Pneumonia/Acute hypoxemic respiratory failure/Weakness Multifactorial. possible heart failure and atypical pneumonia within the differential, Suspected UTI, hypoxia Patient reports productive cough with yellow sputum, fevers, chills and shaking chills for 4 days consistent with infectious source. Biofire negative CTA NEGATIVE for PE, does note finding suggestive of PAH No significant pneumonia/pleural effusion reported but has hazy densities of RLL/RML WBC 13k, procal 6.08 on admission. BNP was also elevated 2035 and patient requiring up to 6L NC to maintain sats Mag 1.4--> 1.7 Tele w/ NSR, no afib noted BP 106/57 (dropped to 92/52 overnight, as low as 79/48 but asymptomatic) -- notable was given Lasix 40mg IV x 1 on admission, defer aggressive diuresis given concerns for infection/hypotension and no significant LE edema or pulmonary congestion on chest imaging Ceftriaxone 2gm IV daily, Doxy. MRSA nares ordered as well/pending Sputum cx ordered as able Urine/blood cultures pending give elevated procalcitonin -Blood cx w/ [facility] this afternoon, ID PCR staph epidermidis. ECHO w/o vegetation however repeat blood cx given procal and ID consult placed. Notable dilated R ventricle, elevated RVSP, ?underlying lung disease Cardiology consulted to weigh in on diuretics given elevated BNP -- agrees, likely underlying lung disease. No smoking hx/environmental exposures reported and recs for pulmonology consultation Pulmonology consulted, appreciate recs/assistance Supplemental O2 titration as able, now on room air this afternoon. Overnight pulse ox to be considered Monitor labs/repeat cultures, PT/OT consults placed (2) Bacteremia: Plan: met sepsis criteria on admission w/ leukocytosis/tachypnea, elevated procal, +UA/cx. Lactic NOT elevated but blood cx obtained due to such and + today as above -repeat blood cx pending but ?containment but given SOB/cough/sputum prodution and elevated procal suspect lung source if truly positive. pulm consulted as above f/u repeat blood cx, sputum cx as able (3) UTI (urinary tract infection): Plan: Complicated UTI, suspect gram-negative bacteremia, sepsis Continues on abx as outlined w/ Ceftriaxone/Doxy as above. Urine cx w/ ecoli on preliminary and will f/u final cx IVF resus deferred on admission due to concerns for CHF and not currently tachycardic. Monitor BP but may require IVF (4) Hyponatremia: Plan: Na 132 on admission. ?2nd to sepsis. Is on sertraline, alprazolam at baseline as well TSH wnl as checked given Synthroid use at baseline/adjustments in past year Lasix 40mg IV x 1 provided and Na worse 128. Defer further diuretics for now Check urine Na, serum osm/urine Na studies Further management pending repeat testing/results Check cortisol w/ AM labs, BMP (5) Non-ST elevation AR (NSTEMI): Plan: Patient has no chest pain on admission however she did report she has had chest pressure lasting 1 to 2 minutes twice in the prior 4 days. Noted had "freezing chills "when this happened suspicious for rigors. Denies sweating or worsened dyspnea during these episodes suspected demand ischemia from infection/bacteremia above. No CP reported. SOB as outlined above, no significant SOB at present but had been on 3-4L NC this morning ECHO w/o wma, cardiology consulted as above (6) Elevated brain natriuretic peptide (BNP) level: Plan: noted, nonspecific no significant LE edema, CXR w/o significant pulmonary edema, defer ongoing diuretic use, especially w/ hypotension (7) Moderate pulmonary hypertension: Plan: ?underlying ELISE vs lung disease supplemental O2 as needed to maintain sats Pulm consulted, appreciate assistance/recs (8) Hypomagnesemia: Plan: 1.4 on admission, replacement ordered and 1.7 on repeat and will monitor/additional replacement as needed. not on PPI at baseline (9) Acute hypokalemia: Plan: suspect 2nd to PO intake/hypomag. normalized on repeat and will monitor (10) Right ventricular dilation: Plan: noted, ?underlying lung disease (11) Moderate tricuspid regurgitation: Plan: cautious use diuretic, would require certain preload and could worsen hypotension w/ ongoing use and will defer for now (12) Demand ischemia: Plan: Troponin is elevatedAt 567, downtrending at 529. This may be demand in the setting of acute infection; however given chest pain and acute rapid worsening shortness of breath and downtrending troponin a recent ischemic event is within differential ECHO w/o wma, no CP reported See cardiology consult, flat trop curve/suspected underlying lung disease Plan Code status: DNR/DNI DVT prophylaxis: Lovenox SQ while inpatient, monitor platelets/bleeding. continue for now, plt 77 Dispo: continued inpatient stay, continues on IV abx/follow blood/urine cx.Repeat blood cx/ID consulted Cardiology/pulmonology consultation. PT/OT consults placed Admission and Anticipated Discharge Date Admission Date: September 03, 2024 Supervising Physician Co-Signing Physician Notes The patient was not seen by me. The chart was reviewed. Case discussed with NITIN Lentz. Agree with assessment and plan Subjective Eval this morning, sitting up in bed. Reports feeling better than on admission. Discussed +UA/urine cx, she does note significant weakness in the past with UTIs. Was given lasix 40mg IV x 1, unaware per patient but she did notice increased urination overnight. No significant leg edema on exam, discussed cardiology consult to weigh in but defer additional diuretics at this time. Complaint w/ her Synthroid but does note has had adjustments in the past year with varying doses. No smoking hx/COPD. No known hx ELISE or snoring reported. Results & Data Results & Data Vital Signs (Past 12 Hours) Vital Signs Temp Pulse Pulse Resp BP Pulse Ox O2 Del Method 09/04/24 07:55 36.3 C L 55 L 18 92/57 L 97 Nasal Cannula 09/04/24 07:19 Nasal Cannula 09/04/24 07:14 60 09/04/24 03:58 36.6 C 72 19 92/52 L 92 Nasal Cannula 09/03/24 22:59 36.5 C 85 19 123/61 93 Nasal Cannula 09/03/24 22:42 84 O2 Flow Rate 09/04/24 07:55 4 09/04/24 07:19 4 09/04/24 07:14 09/04/24 03:58 4 09/03/24 22:59 4 09/03/24 22:42 PG Care Time/CCT Total # of Minutes Spent Total Time Spent with Patient: Total time spent is greater than 50% in coordination of care (as documented) at patient's floor/unit and/or counseling patient: Coding Level of Care Code 59220 SUB INP/OBS CARE 3/50MIN Diagnoses Acute hypoxemic respiratory failure J96.01 Bacteremia R78.81 UTI (urinary tract infection) N39.0 Hyponatremia E87.1 Non-ST elevation AR (NSTEMI) I21.4 Elevated brain natriuretic peptide (BNP) level R79.89 Moderate pulmonary hypertension I27.20 Hypomagnesemia E83.42 Acute hypokalemia E87.6 Right ventricular dilation I51.7 Moderate tricuspid regurgitation I07.1 Demand ischemia I24.89
[2024-09-04] MEDS ORDERED: ALPRAZolam 0.5 MG TABLET PO SCH ×2 (09:00→21:00)
[2024-09-04 09:19] LABS: Magnesium 1.7 mg/dl (1.7-2.4)
[2024-09-04 09:35] LABS: Thyroid Stimulating Hormone 0.459 uIu/ml (0.300-4.500)
--- NOTE | 2024-09-04 09:53 | XRay Report ---
XR chest 1V portable CLINICAL HISTORY: f/u chf COMPARISON STUDY: 09/03/2024 FINDINGS: Stable mild cardiomegaly without pulmonary vascular congestion. Stable faint reticular opac ity lateral right midlung. No new consolidation or pleural effusion. No pneumothorax. IMPRESSION: Stable exam. ACT 112: Negative or not required by law. Electronically signed by: Morales Miller M.D. 09/04/2024 9:52 AM
--- NOTE | 2024-09-04 13:11 | Cardiology Consultation ---
Date of Consultation September 04, 2024 Assessment & Plan (1) Acute hypoxemic respiratory failure: (2) Moderate pulmonary hypertension: (3) Moderate tricuspid regurgitation: (4) Right ventricular dilation: (5) Demand ischemia: Plan 69-year-old woman with no prior cardiac or pulmonary history admitted with hypoxic respiratory failure in the context of acute pulmonary infection. In the absence of pulmonary embolism, right heart findings suggest longstanding underlying pulmonary pathology, resulting in moderate pulmonary hypertension and moderately dilated right ventricle. The fact that she was hypoxemic with no evidence of pulmonary vascular congestion or obvious infiltrates also is highly suggestive of underlying chronic pulmonary disease. She denies significant primary second and smoke exposure or other exposures, no symptoms suggestive of sleep apnea, and does not have morbid obesity. As such, etiology of her underlying lung disease is uncertain. Currently, she is not manifesting any evidence of right or left heart failure. Elevated BNP is a nonspecific finding and, like her elevated but flat troponin curve, is likely due to acute on chronic right heart strain. Would be very reluctant to utilize diuretics, she would require a certain preload and could easily become hypotensive (as she is currently). In the absence of evidence for pulmonary or leg edema, there really would be no role for diuretics for symptom relief anyway. With normal left ventricular systolic function, no specific role for guideline directed medical therapy. Would recommend full pulmonary evaluation with spirometry as outpatient once she has overcome her acute infectious process. Would assess resting (currently 93%), nocturnal, and ambulatory pulse oximetry to see if she would benefit from supplementary oxygen. No cardiac recommendations, pursue pulmonary evaluation. History of Present Illness Reason for Consultation: elevated troponin, new CHF, +BNP, no hx CHF prior Requesting Physician: Thierno Cook MD Attending Physician: Thierno Cook MD History of Present Illness Generally healthy 69-year-old woman with no significant prior cardiac or pulmonary history who was admitted yesterday with productive cough, weakness, and hypoxemia, she was noted to have elevated troponin and BNP and right heart findings on chest x-ray, there is concern for "congestive heart failure". On history, she notes that she would develop dyspnea on exertion walking up stairs or performing heavier duties over the past few years, and recent months this has become more pronounced. However, she denies any weight change, orthopnea, PND, or leg edema. No chest pain, palpitations, presyncope, or syncope. For several days prior to admission she noted respiratory tract symptoms with a productive cough and weakness. Despite the absence of any pulmonary inf iltrates, she was hypoxemic on admission. She received both IV fluids by EMS and 1 dose of diuretic, she is currently on IV and oral antibiotics. She feels much better today. Evaluation here included ECG which showed sinus rhythm at 81 bpm with incomplete right branch block and prolonged QTc (501 ms), otherwise unremarkable. No comparison. Echocardiogram showed EF 65 to 70% with normal LV wall thickness and grade 1 diastolic dysfunction, moderately dilated RV with moderately reduced function, mild to moderate TR with moderate pulmonary hypertension, moderately dilated IVC. Chest x-ray showed right-sided cardiomegaly, no pulmonary vascular congestion. Chest CT showed no pulmonary embolism or pulmonary edema, there was evidence of pulmonary arterial hypertension. Troponin values 567 and 529. BNP 2036 (no comparison). Procalcitonin 6.08. At the time of my evaluation this morning, she was comfortable and had no somatic complaints. Denied any dyspnea at rest, chest pain, palpitations, or lightheadedness. Allergies Allergy/AdvReac Type Severity Reaction Status Date / Time No Known Allergies Allergy Unverified 09/03/24 14:39 Home Medications Medication Instructions Recorded Confirmed Type alprazolam 0.5 mg tablet 0.5 mg PO DAILY 09/03/24 09/03/24 History levothyroxine 112 mcg tablet 112 mcg PO DAILY 09/03/24 09/03/24 History multivitamin 1 tab PO DAILY 09/03/24 09/03/24 History potassium 1 tab PO DAILY 09/03/24 09/03/24 History propranolol 20 mg tablet 20 mg PO BID 09/03/24 09/03/24 History sertraline 50 mg tablet 50 mg PO DAILY 09/03/24 09/03/24 History Patient History Social History Smoking Status: Unknown if ever smoked Hx Alcohol Use: No Hx Substance Use: No Preferred Language: [place] Communication Ability: Effective Collective Bargaining Specialist Required: No Beliefs That Will Affect Care: None Current Living Situation: Alone Other Information That Helps Us Care for You: No Feels Safe at Home: Yes Safety Concerns: Feels Safe At This Time Assistive Devices: Cane and Glasses Physical Exam Physical Exam: Elderly white female who appears comfortable. Afebrile during this hospitalization. BP mildly hypotensive. Pulse 60 bpm and regular. Skin: no ecchymoses or generalized lesions. HEENT: unremarkable. Neck: JVP at the clavicle at 90 degrees, no carotid bruits. Lungs: Moderately decreased breath sounds but clear. No crackles, wheezes, or rhonchi. No accessory muscle use. Cardiac: regular rhythm, faint heart tones, no obvious murmur. Abdomen: benign. Extremities: no edema, pulses intact. Neurologic: normal affect and conversation, nonfocal. Results & Data Vital Signs (Past 12 Hours) Laboratory Results WBC 13.8, hemoglobin 13.6, platelet count 77,000. PG Care Time/CCT Total # of Minutes Spent Total Time Spent with Patient: Total time spent is greater than 50% in coordination of care (as documented) at patient's floor/unit and/or counseling patient: Coding Level of Care Code 95432 IN/OBS CONSULT LVL 4,60M Diagnoses Acute hypoxemic respiratory failure J96.01 Moderate pulmonary hypertension I27.20 Moderate tricuspid regurgitation I07.1 Right ventricular dilation I51.7 Demand ischemia I24.89
[2024-09-04 14:12] LABS: A calco-baum cmplx NotReported Not Detected (NotDetected); Bact fragilis Not Reported Not Detected (NotDetected); Blood Culture Id Panel See PCR Comment (NotDetected); C auris Not Reported Not Detected (NotDetected); Calbicans Not Reported Not Detected (NotDetected); Candida glabrata Not Reported Not Detected (NotDetected); Candida krusei Not Reported Not Detected (NotDetected); Cneoformans/gatti Not Reported Not Detected (NotDetected); Cparapsilosis Not Reported Not Detected (NotDetected); E cloacae compx Not Reported Not Detected (NotDetected); Efaecalis Not Reported Not Detected (NotDetected); Efaecium Not Reported Not Detected (NotDetected); Enterobacterales Not Reported Not Detected (NotDetected); Escherichia coli Not Reported Not Detected (NotDetected); H influenzae Not Reported Not Detected (NotDetected); K aerogenes Not Reported Not Detected (NotDetected); Koxytoca Not Reported Not Detected (NotDetected); Kpneumoniae grp Not Reported Not Detected (NotDetected); Lmonocyt Not Reported Not Detected (NotDetected); N meningitidis Not Reported Not Detected (NotDetected); P aeruginosa Not Reported Not Detected (NotDetected); Proteus spp Not Reported Not Detected (NotDetected); Salmonella spp Not Reported Not Detected (NotDetected); Staph lugdunensis Not Reported Not Detected (NotDetected); Staph spp. Not Reported DETECTED (NotDetected); Staphaureus Not Reported Not Detected (NotDetected); Staphepi Not Reported DETECTED (NotDetected); Stenmaltophilia Not Reported Not Detected (NotDetected); Strep agal(GrpB) Not Reported Not Detected (NotDetected); Strep pneum Not Reported Not Detected (NotDetected); Strep pyog (GrpA) Not Reported Not Detected (NotDetected); Strep spp Not Reported Not Detected (NotDetected); mecAC Resistant Gene Not Detected (NotDetected)
[2024-09-04 14:33] LABS: Staphylococcus epidermidis DETECTED (NotDetected); Staphylococcus spp. DETECTED (NotDetected)
[2024-09-04 14:50] LABS: Calcium 8.5 mg/dl (8.6-10.3); Creatinine Clr Calc Pharmacy 46.1 ml/min; Potassium 3.5 mmol/L (3.5-5.1)
[2024-09-04] MEDS: cefTRIAXone SODIUM 2,000 MG/50 ML BAG IV SCH (16:25)
[2024-09-04 19:39] LABS: Hematocrit (blood only) 44.1 % (37.0-47.0); Hemoglobin 15.5 g/dl (12.0-16.0); Mean Corpuscular Hgb Conc 35.1 g/dL (32.0-36.0); Mean Corpuscular Volume 91.1 fL (80.0-100.0); Mean Platelet Volume 12.3 fL (9.4-12.4); Platelet Count 100 K/uL (130-400); RDW Coefficient of Variation 15.4 % (11.5-14.5); RDW Standard Deviation 51.3 fL (36.4-46.3); Red Blood Count 4.84 M/uL (4.20-5.40); White Blood Count 16.27 K/ul (4.8-10.8)
[2024-09-04] MEDS: PANTOprazole 40 MG TAB PO SCH (20:52)
[2024-09-05 05:01] LABS: HCO3 ABG 24 mmol/L (19-24); Oxygen Saturation ABG 94.7 % (90-95); PCO2 ABG 31 mmHg (35-46); PO2 ABG 61 mmHg (80-95); pH ABG 7.49 (7.35-7.45)
[2024-09-05 05:04] LABS: Allen Test Pos (Pos)
[2024-09-05 07:57] LABS: Basophils # (auto) 0.07 K/uL (0.00-0.20); Basophils % (auto) 0.5 %; Eosinophils # (auto) 0.22 K/uL (0.00-0.50); Eosinophils % (auto) 1.7 %; Hematocrit (blood only) 37.9 % (37.0-47.0); Hemoglobin 13.3 g/dl (12.0-16.0); Immature Granulocytes % (auto) 0.8 %; Lymphocytes % (auto) 16.9 %; Mean Corpuscular Hemoglobin 31.6 pg (25.0-34.0); Mean Corpuscular Hgb Conc 35.1 g/dL (32.0-36.0); Mean Platelet Volume 12.9 fL (9.4-12.4); Monocytes # (auto) 1.51 K/uL (0.11-0.59); Monocytes % (auto) 11.6 %; Neutrophils # (auto) 8.93 K/uL (1.40-6.50); Neutrophils % (auto) 68.5 %; Platelet Count 89 K/uL (130-400); RDW Coefficient of Variation 15.2 % (11.5-14.5); RDW Standard Deviation 49.9 fL (36.4-46.3); Red Blood Count 4.21 M/uL (4.20-5.40); White Blood Count 13.03 K/ul (4.8-10.8)
[2024-09-05 08:24] LABS: Albumin Level 2.6 gm/dl (3.4-5.0); BUN Creatinine Ratio 45.3 (10-20); Bilirubin Direct 0.8 mg/dl (0-0.2); Bilirubin,Total 1.6 mg/dl (0.2-1.0); Calcium 8.4 mg/dl (8.6-10.3); Creatinine Clr Calc Pharmacy 58.4 ml/min; Magnesium 1.8 mg/dl (1.7-2.4); Potassium 3.7 mmol/L (3.5-5.1); Total Protein 5.5 gm/dl (6.0-8.3)
--- NOTE | 2024-09-05 08:31 | Infectious Disease Consult ---
Date of Consultation September 05, 2024 Assessment & Plan (1) UTI (urinary tract infection): (2) Acute hypoxemic respiratory failure: (3) Bacteremia: Plan Problems: #E coli UTI #Staph epi in blood cultures #Thrombocytopenia #History of R TKA c/b PJI (2019) Micro: 09/04 BCx x2: pending 09/03 BCx x2: Staph epi in 3/4 bottles 09/03 UCx: E coli (green-sensitive) Abx: Ceftriaxone 2 g 09/03 present Doxycycline 09/03 - present 69 yo F with hypothyroidism, anxiety, depression, R TKA c/b PJI (reportedly in 2019 in [place], s/p revision and 6 weeks IV antibiotics) who presented on 09/03 with weakness and fatigue x 4 days, productive cough, shortness of breath, dysuria, found to have E coli UTI. Also reported chills, and some chest discomfort, dysuria, polyuria, urinary urgency, poor appetite, some loose stools. Per EMS, the pt was hypotensive with BP 88/42, and O2 sat 86% on room air. She was given IVF. On arrival to the ED, T 37, HR 87, BP 120/61, RR 18, 86% on room air, improved on NC. Labs with WBC 13.05, plt 81, Na 132, BNP 2036, procal 6.08. UA with >50 WBCs. RVP negative. CTA chest with no PE, no pneumonia, and evidence of pulmonary arterial hypertension. Given concern for UTI, pt was started on ceftriaxone. Doxycycline added in case of atypical pneumonia. Became hypotensive overnight into t asymptomatic. Blood cultures returned with Staph epi in 3/4 bottles. Leukocytosis increased to 16.27 on 09/04, decreased back to 13 on 09/05. Urine culture growing E coli, green-sensitive. Discussion: Treating for E coli UTI. Also with Staph epi in 3/4 blood culture bottles--pt does not have a central line, no concern for infected hardware (has R TKA that is asymptomatic). May represent contaminant despite growing in multiple blood culture bottles, since there is no clear alternative source. Pt with shortness of breath, productive cough, O2 requirement on admission. RVP negative, and CT without signs of pneumonia however. Recommendations: - Continue ceftriaxone for E coli UTI - Follow-up repeat blood cultures from 09/04/24 - Consider discontinuation of doxycycline. Will continue to follow Consultation Information Consultation was provided via telemedicine using two-way real-time interactive telecommunication between the patient and the telemedicine provider. For the duration of the visit, the provider was performing the assessment from a different facility than the patient. This includesuse of bluetooth stethoscope forauscultationperformed by the telepresenter that the telemedicine provider can hear if described in the physical exam. Maintenance Planner contact information: Please call [facility] . (Phone Number For Physician Use Only) After establishing a telemedicine visit, patient was: Patient was verified with two unique identifiers, Patient/authorized rep acknowledged consent and understanding and Gave permission to continue telehealth session Time Spent with Patient: Initial => 40 min History of Present Illness Reason for Consultation: Bacteremia, UTI Attending Physician: Thierno Cook MD History of Present Illness 69 yo F with hypothyroidism, anxiety, depression, R TKA c/b PJI (reportedly in 2019 in [place], s/p revision and 6 weeks IV antibiotics) who presented on 09/03 with weakness and fatigue x 4 days, productive cough, shortness of breath, and a fall. Also reported chills, and some chest discomfort, dysuria, polyuria, urinary urgency, poor appetite, some loose stools. Per EMS, the pt was hypotensive with BP 88/42, and O2 sat 86% on room air. She was given IVF. On arrival to the ED, T 37, HR 87, BP 120/61, RR 18, 86% on room air, improved on NC. Labs with WBC 13.05, plt 81, Na 132, BNP 2036, procal 6.08. UA with >50 WBCs. RVP negative. CTA chest with no PE, no pneumonia, and evidence of pulmonary arterial hypertension. Given concern for UTI, pt was started on ceftriaxone. Doxycycline added in case of atypical pneumonia. Became hypotensive overnight into t asymptomatic. Blood cultures returned with GPCs in clusters in 3/ bottles. Biofire positive for Staph epi. Leukocytosis increased to 16.27 on 09/04, decreased back to 13 on 09/05. Urine culture growing E coli, green-sensitive. Today, the pt reports feeling improved. States she is not as dizzy and has a bit more energy. Continues to have dysuria, which has been ongoing for ~4 days. States she has a history of UTIs about once a year, but does not recall what antibiotic she takes for these. Has nonproductive cough. In 2019, her R TKA had to be replaced due to PJI. She does not recall the bacteria or the name of the IV antibiotic she received. 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 Denies other hardware, prosthetic devices. Allergies Allergy/AdvReac Type Severity Reaction Status Date / Time No Known Allergies Allergy Unverified 09/03/24 14:39 Home Medications Medication Instructions Recorded Confirmed Type alprazolam 0.5 mg tablet 0.5 mg PO DAILY 09/03/24 09/03/24 History levothyroxine 112 mcg tablet 112 mcg PO DAILY 09/03/24 09/03/24 History multivitamin 1 tab PO DAILY 09/03/24 09/03/24 History potassium 1 tab PO DAILY 09/03/24 09/03/24 History propranolol 20 mg tablet 20 mg PO BID 09/03/24 09/03/24 History sertraline 50 mg tablet 50 mg PO DAILY 09/03/24 09/03/24 History Patient History Social History Smoking Status: Unknown if ever smoked Hx Alcohol Use: No Hx Substance Use: No Preferred Language: Kazakh Communication Ability: Effective Mechanical Design Technician Required: No Beliefs That Will Affect Care: None Current Living Situation: Alone Other Information That Helps Us Care for You: No Feels Safe at Home: Yes Safety Concerns: Feels Safe At This Time Assistive Devices: None Review of System A complete ROS was performed and is negative except as mentioned in the HPI. Physical Exam Physical Exam: GEN: elderly woman sitting up in NAD. RESP: No increased work of breathing ABD: Soft, non-distended. Non-tender to palpation. EXT: incision scar over R knee, without erythema or swelling or warmth. Good R knee ROM SKIN: No lesions or rashes on exposed skin. BACK: No CVA tenderness NEURO: Alert and oriented. Answers all questions appropriately. Speech not slurred. PSYCH: Normal mood, affect appropriate. Results & Data Vital Signs (Past 12 Hours) Vital Signs Temp Pulse Pulse Resp BP Pulse Ox O2 Del Method 09/05/24 07:29 36.8 C 63 18 100/65 94 Room Air 09/05/24 02:35 36.3 C L 62 20 95/57 L 93 Room Air 09/04/24 23:38 77 09/04/24 23:35 37.1 C 69 17 100/63 92 Room Air Laboratory Results Short CBC 09/04/24 09/05/24 Range/Units 19:20 07:15 WBC 16.27 H 13.03 H (4.8-10.8) K/ul Hgb 15.5 13.3 (12.0-16.0) g/dl Hct 44.1 37.9 (37.0-47.0) % Plt Count 100 L 89 L (130-400) K/uL BMP 09/04/24 09/05/24 14:08 07:15 Sodium 129 L 129 L Potassium 3.5 3.7 Chloride 96 L 99 Carbon Dioxide 24 23 BUN 36 H 43 H Creatinine 1.20 0.95 Glucose 108 H 97 Calcium 8.5 L 8.4 L Liver Function 09/05/24 Range/Units 07:15 Total Bilirubin 1.6 H D (0.2-1.0) mg/dl Direct Bilirubin 0.8 H (0-0.2) mg/dl AST 47 H (13-39) U/L ALT 21 (7-52) U/L Alkaline Phosphatase 62 (34-104) U/L Albumin 2.6 L (3.4-5.0) gm/dl Diagnostic Findings Chest CTA 09/03/24 12:47 CT angio chest PE protocol CT DOSE: 697.57 mGy.cm HISTORY: Dyspnea; hypoxia. TECHNIQUE: Multiple CTA images of the chest were obtained after the intravenous administration of 118 ml Optiray. Coronal and sagittal MIPS were obtained from the axial data set and were submitted for review. All measurements were obtained according to NASCET criteria. A dose lowering technique was utilized adhering to the principles of ALARA. COMPARISON STUDY: None FINDINGS: There is no pulmonary consolidation, pleural effusion, or pneumothorax. No enlarged adenopathy. No pericardial effusion. There are coronary artery and aortic calcifications. There is moderate cardiomegaly with prominence of the pulmonary vasculature. Pulmonary veins are prominent. Right ventricle is prominent. There is no pulmonary embolism. No thoracic aortic dissection or aneurysm. There are mild diffuse thoracic spine degenerative changes. IMPRESSION: 1. No pulmonary embolism. 2. Findings suggesting pulmonary arterial hypertension. 3. No pneumonia or pleural effusion. ACT 112: Negative or not required by law. The above report was generated using voice recognition software. It may contain grammatical, syntax or spelling errors. Electronically signed by: Morales Miller M.D. 09/03/2024 2:17 PM Chest X-Ray 09/03/24 12:47 XR chest 1V portable CLINICAL HISTORY: Dyspnea COMPARISON STUDY: None FINDINGS: Heart size and pulmonary vasculature are normal. There are faint reticular opacities at the lateral mid and lower right lung. No effusion, consolidation, or pneumothorax otherwise. IMPRESSION: Possible early pneumonia on the right versus atelectasis or artifact. ACT 112: Negative or not required by law. Electronically signed by: Morales Miller M.D. 09/03/2024 1:57 PM Knee X-Ray 09/03/24 12:47 XR knee RT 3V CLINICAL HISTORY: R knee pain s/p fall COMPARISON: None FINDINGS: Right knee prosthesis shows no hardware complication. No fracture or dislocation. IMPRESSION: No fracture seen. ACT 112: Negative or not required by law. Electronically signed by: Morales Miller M.D. 09/03/2024 1:50 PM Pelvis X-Ray 09/03/24 12:47 XR pelvis 1-2V routine CLINICAL HISTORY: fall from standing COMPARISON: None FINDINGS: Sacroiliac joints and symphysis pubis are intact and there are no fractures within the pelvis or hips. A few clips project over the pelvis. There is moderate bilateral hip osteoarthritis. IMPRESSION: No fractures within the pelvis or hips. ACT 112: Negative or not required by law. Electronically signed by: Sixto Vasquez M.D. 09/03/2024 1:50 PM Chest X-Ray 09/04/24 09:15 XR chest 1V portable CLINICAL HISTORY: f/u chf COMPARISON STUDY: 09/03/2024 FINDINGS: Stable mild cardiomegaly without pulmonary vascular congestion. Stable faint reticular opacity lateral right midlung. No new consolidation or pleural effusion. No pneumothorax. IMPRESSION: Stable exam. ACT 112: Negative or not required by law. Electronically signed by: Morales Miller M.D. 09/04/2024 9:52 AM Medications Administered Current Inpatient Medications Acetaminophen (Acetaminophen 325 Mg Tab) 650 mg PO Q4H PRN PRN Reason: Pain or Fever Stop: 10/03/24 18:05 Last Admin: 09/04/24 21:07 Dose: 650 mg Alprazolam (Alprazolam 0.5 Mg Tablet) 0.5 mg PO HS PREMA Stop: 10/03/24 20:59 Last Admin: 09/04/24 20:52 Dose: 0.5 mg Enoxaparin Sodium (Enoxaparin Inj 40 Mg/0.4 Ml Syr) 40 mg SQ PM PREMA Stop: 10/03/24 20:59 Last Admin: 09/04/24 20:53 Dose: 40 mg Ceftriaxone Sodium (Rocephin) 2,000 mg in 50 mls @ 100 mls/hr IV Q24H PREMA; Protocol Stop: 09/14/24 16:29 Last Infusion: 09/04/24 16:55 Dose: Infused Doxycycline Hyclate 100 mg/ (Dextrose) 100 mls @ 50 mls/hr IV Q12H PREMA Stop: 09/08/24 16:59 Last Infusion: 09/05/24 07:13 Dose: Infused Levothyroxine Sodium (Levothyroxine Sodium 112 Mcg Tablet) 112 mcg PO DAILYBB PREMA Stop: 10/04/24 06:29 Last Admin: 09/05/24 05:59 Dose: 112 mcg Multivitamins (Multivitamin Tab) 1 tab PO DAILY PREMA Stop: 10/04/24 08:59 Last Admin: 09/05/24 07:59 Dose: 1 tab Pantoprazole Sodium (Pantoprazole 40 Mg Tab) 40 mg PO BID PREMA Stop: 10/04/24 20:59 Last Admin: 09/05/24 07:59 Dose: 40 mg Propranolol HCl (Propranolol Hcl 20 Mg Tab) 20 mg PO BID PREMA Stop: 10/03/24 20:59 Last Admin: 09/05/24 07:59 Dose: 20 mg Sertraline HCl (Sertraline Hcl 50 Mg Tablet) 50 mg PO DAILY PREMA Stop: 10/04/24 08:59 Last Admin: 09/05/24 07:59 Dose: 50 mg
--- NOTE | 2024-09-05 09:04 | Hospitalist Progress Note ---
Date of Service September 05, 2024 Assessment & Plan (1) Melena: Plan: Melena BM overnight/this moring reported 09/04-09/05. Hgb stable and denies abdominal pain but added protonix PO BID empirically last evening. GI consult placed today, ppi converted to IV BID Discussed w/ patient hx of any GI bleeding --> reports hx gastric ulcer/perforation reported req intervention in the past. Discussed NSAID use -- she notes is to avoid but has issues remembering to take tylenol vs NSAID but HAS BEEN TAKING ALEVE PM EVERY NIGHT W HER XANAX FOR SLEEP Given 3rd BM today this afternoon w/ continued melena->added carafate QID, continue protonix IV BID. Repeat hgb stable and will monitor Appreciate GI consult/recs Planning for Liver US given elevated TB, peripheral smear NOT remarkable. Notable family reported hx drinking to pulm, will add B12/folate/B1 w/ AM labs. Check iron studies for completeness Avoid NSAIDs, placed Lovenox on hold/SCDs to be placed Monitor labs/exam in AM (2) Acute hypoxemic respiratory failure: Plan: 69-year-old female who presents with 4 days of chills, rigors, shortness of breath, and dysuria. Rec for admit for new onset CHF/possible LA and found to have +UA/UTI w/ reports of dysuria and abx w/ Ceftriaxone/Doxy ordered EKG w/o acute ischemic change, ECHO ordered and notes IVC dilation and BNP was elevated and given Lasix 40mg IV x 1 but discussed w/ cards and not clinically volume overloaded 09/04 and deferred ongoing use On echo, does have elevated RSVP and dilated R ventricle and suspect underlying lung disease CTA NEGATIVE for PE, but does note findings suggestive of PAH. No signifciant PNA/effusions (but does note some hazy densities RLL/RML) Mag 1.4, improved to 1.8 with replacement Telemetry without afib Ceftriaxone/Doxy IV ordered to cover for lung/urine on admission, can dc doxy/will continue Ceftriaxone for now. Pulm consult appreciated and will need outpt PFTs. Does not believe evidence for PNA at ths time. Pulm rec daily lasix, was given 20mg IV x 1 today (09/05) and recs to continue 20mg daily -- order placed for am Continue pulmonary toilet, incentive spirometer (3) UTI (urinary tract infection): Plan: Complicated UTI, suspect gram-negative bacteremia, sepsis however blood cultures NOT positive for gram negative bacteria at this time Continues on abx as outlined above, plan to dc Doxy Urine cx w/ ecoli on preliminary and will f/u final cx (4) Hyponatremia: Plan: Na 132 on admission. ?2nd to sepsis. Is on sertraline, alprazolam at baseline as well TSH wnl as checked given Synthroid use at baseline/adjustments in past year Na dropped to 128 on repeat following Lasix 40mg IV x 1 on admission Urine Na, serum osm/urine Na studies ordered, urine Na <10 IVF ordered but stopped per pulm/lasix ordered. Cortisol level acceptable Na 128 on AM labs and will monitor (5) Non-ST elevation LA (NSTEMI): Plan: Patient has no chest pain on admission however she did report she has had chest pressure lasting 1 to 2 minutes twice in the prior 4 days. Noted had "freezing chills "when this happened suspicious for rigors. Denies sweating or worsened dyspnea during these episodes suspected demand ischemia from infection/bacteremia above. No CP reported. SOB as outlined above, no significant SOB at present but had been on 3-4L NC AM 2/, now on room air ECHO w/o wma, cardiology consulted and does not feel cardiac etiology in nature (6) Elevated brain natriuretic peptide (BNP) level: Plan: noted, nonspecific no significant LE edema, CXR w/o significant pulmonary edema, defer ongoing diuretic use, especially w/ hypotension per pulm, lasix 20mg IV daily (7) Moderate pulmonary hypertension: Plan: ?underlying ELISE vs lung disease supplemental O2 as needed to maintain sats, now on room air Pulm consulted, appreciate assistance/recs --> provided lasix 20mg IV for today w/ rec to continue once daily will need outpt PFT testing (8) Hypomagnesemia: Plan: 1.4 -- replacement ordered and improved to 1.7 but additional 1gm IV ordered to keep stable. Not on PPI at baseline , HOWEVER now on PPI BID 2nd to #1 and will monitor level in am/start PO if needed (9) Acute hypokalemia: Plan: suspect 2nd to PO intake/hypomag. normalized on repeat and will monitor w/ addition of lasix as above (10) Right ventricular dilation: Plan: noted, ?underlying lung disease. CTA chest negative for PE (11) Moderate tricuspid regurgitation: Plan: cautious use diuretic, would require certain preload and could worsen hypotension w/ ongoing use and will defer for now however appears BPs improved today and lasix as above/montior (12) Demand ischemia: Plan: Troponin is elevatedAt 567, downtrended 529. Suspect demand in the setting of acute infection; however given chest pain and acute rapid worsening shortness of breath and downtrending troponin a recent ischemic event was within differential ECHO w/o wma, no CP reported. Cards consulted -- see note, does not suspect cardiac etiology/likely underlying lung disease (13) Bacteremia: Plan: met sepsis criteria on admission w/ leukocytosis/tachypnea, elevated procal, +UA/cx. Lactic NOT elevated but blood cx obtained due to such and 3/4 bottles w/ staph epidermidis but discussed w/ ID and felt contaminant however will f/u final cx/repeat cx from 09/04 Does have hx R knee replacement/PJI in the past w/ MRSA, no issues on exam. No other sources identified. Appreciate Id consult/rec Plan Code status: DNR/DNI DVT prophylaxis: Lovenox SQ placed on HOLD given reported melena, nursing to place SCDs in meantime Dispo: continue inpatient stay on ceftriaxone IV, doxy has been discontinued. blood cx suspected contaminant per ID. Lasix IV daily per pulm. Eventual will need outpt PFT testing GI consulted for melena, PPI IV BID/carafate added and lovenox placed on hold. Liver US ordered given elevated LFTs for eval PT/OT consulted, recs rehab. CM to follow Admission and Anticipated Discharge Date Admission Date: September 03, 2024 Supervising Physician Co-Signing Physician Notes The patient was not seen by me. The chart was reviewed. Case discussed with NITIN Lentz. Agree with assessment and plan Subjective Eval this afternoon, sitting up in bed. Occasional cough but on room air. Outpt pulm f/u for PFTs discussed. ID consulted, had hx MRSA in joint many years ago in [place] +for MRSA, reports replacement but no alf abx requirement. Repeat blood cx pending, continues on Ceftriaxone for UTI. Discussed dark BM, she denies abdominal pain at this time. Inquired if ever had blood in stool in past, she reports several years ago w/ gastric ulcer/perf requiring intervention/"sewing". Inquired if taking any ibuprofen/aleve/motrin recently, she does report she is to stay away from these but has been taking a nightly aleve PM with her xanax to help sleep. Discussed avoiding further NSAIDs, added PPI BID. No abdominal pain on exam but GI consult placed/pending. Discussed to alert for any abdominal pain/continued bloody BM but will monitor for now. Anticipates rehab. Questions/concerns addressed at this time. Physical Exam 2 Physical Exam: General : 69yo chronically ill appearing female sitting up in recliner chair, NAD, occasional cough but not tachypneic, on room air today HEENT: head atraumatic, normocephalic, mmm, trachea midline, +JVD Resp: diminished int he bases but no significant wheezing/rales, on room air CV: RRR< no significant m/r/g, no pitting edema/calf tenderness GI: +BS,slight distension but nONTENDER, no guarding/rebound : purewick, cloudy yellow urine MSK/Neuro: generalized fatigue but nonfocal, not confused/answering questions appropriately Psych: AOx3 Results & Data Results & Data Vital Signs (Past 12 Hours) Vital Signs Temp Pulse Pulse Resp BP Pulse Ox O2 Del Method 09/05/24 07:29 36.8 C 63 18 100/65 94 Room Air 09/05/24 02:35 36.3 C L 62 20 95/57 L 93 Room Air 09/04/24 23:38 77 09/04/24 23:35 37.1 C 69 17 100/63 92 Room Air Laboratory Results 09/05/24 15:50 09/05/24 07:15 ABG- pH 7.49, pCO2 31, pO2 61 Mag 1.8 TB 1.6, DB 0.8, AST 47, ALT 21, ALP 62 Procal 7.88 Cortisol AM 20.1 Fecal occult + MRSA nares + PG Care Time/CCT Total # of Minutes Spent Total Time Spent with Patient: Total time spent is greater than 50% in coordination of care (as documented) at patient's floor/unit and/or counseling patient: Coding Level of Care Code 97520 SUB INP/OBS CARE 3/50MIN Diagnoses Melena K92.1 Acute hypoxemic respiratory failure J96.01 UTI (urinary tract infection) N39.0 Hyponatremia E87.1 Non-ST elevation LA (NSTEMI) I21.4 Elevated brain natriuretic peptide (BNP) level R79.89 Moderate pulmonary hypertension I27.20 Hypomagnesemia E83.42 Acute hypokalemia E87.6 Right ventricular dilation I51.7 Moderate tricuspid regurgitation I07.1 Demand ischemia I24.89 Bacteremia R78.81
--- NOTE | 2024-09-05 09:32 | Pulmonary Consultation ---
Date of Consultation September 05, 2024 Assessment & Plan (1) Moderate pulmonary hypertension: (2) Acute hypoxemic respiratory failure: (3) Elevated brain natriuretic peptide (BNP) level: (4) Acute dyspnea: Plan 1. Acute hypoxemic respiratory failure - She is maintaining her O2 saturation at 95 on Room Air. - D/D: CAP; Bronchitis - Under Ceftriaxone and Doxycycline -Complete course of Antibiotics -Procal:7.88 , Less likely to be due to lung causes -CT Chest shows findings suggestive of Pulmonary Artery Hypertension . No Pleural effusion, pneumonia or Pulmonary embolism. -Echo done yesterday- Left Ventricular Ejection Fraction 65 to 70%, Moderately dilated right ventricle, reduced right ventricular systolic function and moderated Tricuspid Regurgitation. - She does not exhibit clinical feature of heart failure, however, echocardiogram findings are suggestive of heart failure. -Will stop fluid. -Add Lasix 20 mg daily 2. Moderate Pulmonary Hypertension -Likely Grade 3 PAH -May benefit from diuretics 3.Elevated BNP -D/D: Heart failure with preserved EF/ Pulmonary Hypertension/ Cirrhosis 4. Thrombocytopenia D/D: Cirrhosis /infection/Dilutional -Platelet count- 81>77>100>89 -Total Bilirubin- 3.3>1.6 -Order PBS and Liver Ultrasound. Supervising Physician Co-Signing Physician Notes Patient seen and examined with resident physician. Agree with the above unless otherwise specified. Patient with pulmonary hypertension of unclear etiology. Possible 1 and 3 etiology. Will need liver ultrasound to evaluate for cirrhosis and hepatopulmonary/portal pulmonary hypertension. CT chest without definitive evidence of ILD and poor study as this is a contrast-enhanced study. Recommend outpatient HRCT when the patient is more euvolemic. Will also need outpatient PFTs. Recommend discontinuing IV fluids and giving a trial of Lasix 20 mg to help with underlying dyspnea. Patient also thrombocytopenic likely due to underlying cirrhosis. Patient's son indicates that the patient has a prior history of severe alcoholism. I see no evidence of any significant pulmonary infection at this time. Antibiotics can be discontinued from a pulmonary perspective, but will defer to the primary team. Recommend two step to evaluate for home oxygen prior to discharge. On exam the patient appears chronically disheveled. Hepatojugular reflux is present. Mild JVD noted. No significant lower extremity edema. Diminished lung sounds at the bases. No overt crackles. Prominent S2 on exam. No murmurs rubs or gallops. Regular rate and rhythm. Neurologically intact. History of Present Illness Reason for Consultation: Cough and Shortness of breath Attending Physician: Thierno Cook MD History of Present Illness Ti is a 69 Y O Female with PMH of Hypothyroidism, Anxiety and Depression presented to ER with Weakness, Cough and Shortness of breath. Symptoms started 4 or 5 days before coming to hospital. Cough with yellowish sputum production before but has stopped since 2 days. She had pain in centre of chest but has subsided now.She still has shortness of breath. Also associated with feverish feeling , chills more at night time and extreme fatigue. Non Smoker, occasionally drinks alcohol. 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 She had runny nose, sore throat and congestion before coming to hospital. No exposure with sick contacts. Appetite is significantly decreased. Allergies Allergy/AdvReac Type Severity Reaction Status Date / Time No Known Allergies Allergy Unverified 09/03/24 14:39 Home Medications Medication Instructions Recorded Confirmed Type alprazolam 0.5 mg tablet 0.5 mg PO DAILY 09/03/24 09/03/24 History levothyroxine 112 mcg tablet 112 mcg PO DAILY 09/03/24 09/03/24 History multivitamin 1 tab PO DAILY 09/03/24 09/03/24 History potassium 1 tab PO DAILY 09/03/24 09/03/24 History propranolol 20 mg tablet 20 mg PO BID 09/03/24 09/03/24 History sertraline 50 mg tablet 50 mg PO DAILY 09/03/24 09/03/24 History Patient History Social History Smoking Status: Unknown if ever smoked Hx Alcohol Use: No Hx Substance Use: No Preferred Language: Kazakh Communication Ability: Effective [place] [employer] Sawyer Required: No Beliefs That Will Affect Care: None Current Living Situation: Alone Other Information That Helps Us Care for You: No Feels Safe at Home: Yes Safety Concerns: Feels Safe At This Time Assistive Devices: None Review of Systems Review of Systems: As per HPI. Physical Exam Physical Exam: GEN: elderly woman sitting up in NAD. RESP: No increased work of breathing ABD: Soft, non-distended. Non-tender to palpation. EXT: incision scar over R knee, without erythema or swelling or warmth. Good R knee ROM SKIN: No lesions or rashes on exposed skin. BACK: No CVA tenderness NEURO: Alert and oriented. Answers all questions appropriately. Speech not slurred. PSYCH: Normal mood, affect appropriate. Results & Data Results & Data Vital Signs (Past 12 Hours) Vital Signs Temp Pulse Pulse Resp BP Pulse Ox O2 Del Method 09/05/24 07:29 36.8 C 63 18 100/65 94 Room Air 09/05/24 02:35 36.3 C L 62 20 95/57 L 93 Room Air 09/04/24 23:38 77 09/04/24 23:35 37.1 C 69 17 100/63 92 Room Air
[2024-09-05] MEDS: SODIUM CHLORIDE 0.9% 1,000 ML IV SCH (09:59)
--- NOTE | 2024-09-05 13:21 | Cardiology Progress Note ---
Date of Service September 05, 2024 Assessment & Plan (1) Acute hypoxemic respiratory failure: (2) Moderate pulmonary hypertension: (3) Moderate tricuspid regurgitation: (4) Right ventricular dilation: (5) Demand ischemia: Plan Patient is doing well, no evidence of right or left-sided heart failure by history exam. Recommend spirometry with diffusion capacity as outpatient. No ongoing cardiac issues, will sign off. No specific cardiology follow-up necessary at this time. Admission and Anticipated Discharge Date Admission Date: September 03, 2024 Subjective Uneventful night. She was able to ambulate with assistance and physical therapy and denies any dyspnea on exertion. No chest pain, dyspnea at rest, palpitations, or lightheadedness. Physical Exam Physical Exam: Appears comfortable. Afebrile. Normotensive. Pulse 66 bpm and regular. Respirations 18 unlabored. Skin: no ecchymoses or generalized lesions. HEENT: unremarkable. Neck: JVP at the clavicle at 90 degrees, no carotid bruits. Lungs: Moderately decreased breath sounds but clear. No crackles, wheezes, or rhonchi. No accessory muscle use. Cardiac: regular rhythm, faint heart tones, no obvious murmur. Abdomen: benign. Extremities: no edema, pulses intact. Neurologic: normal affect and conversation, nonfocal. Results & Data Vital Signs (Past 12 Hours) Vital Signs Temp Pulse Pulse Resp BP Pulse Ox O2 Del Method 09/05/24 11:32 97.3 F L 66 18 101/66 95 Room Air 09/05/24 10:28 61 09/05/24 07:29 98.2 F 63 18 100/65 94 Room Air 09/05/24 02:35 97.3 F L 62 20 95/57 L 93 Room Air Laboratory Results Normal electrolytes, BUN 43, creatinine 0.95. PG Care Time/CCT Total # of Minutes Spent Total Time Spent with Patient: Total time spent is greater than 50% in coordination of care (as documented) at patient's floor/unit and/or counseling patient: Coding Level of Care Code 48581 SUB INP/OBS CARE 08/24MIN Diagnoses Acute hypoxemic respiratory failure J96.01 Moderate pulmonary hypertension I27.20 Moderate tricuspid regurgitation I07.1 Right ventricular dilation I51.7 Demand ischemia I24.89
--- NOTE | 2024-09-05 13:37 | Billing Data ---
Date of Service September 05, 2024 Coding Level of Care Code 28578 INT INP/OBS CARE
--- NOTE | 2024-09-05 14:35 | Gastrointestinal Consultation ---
Date of Consultation September 05, 2024 Assessment & Plan (1) Melena: H/H 13.3/37.9. Patient with acute respiratory issues at present. On rectal exam, she did not have overtly bloody stool/melena. At the present time, would continue Protonix 40 mg IV BID, monitor H/H, and monitor for further signs of overt GI bleeding while her primary team treats her underlying respiratory issues. Supervising Physician Co-Signing Physician Notes Patient with concern for melena. Hemoglobin is good at 12.7. No significant drop. There is a slight increase in her BUN. Patient is on twice daily PPI therapy. Rectal examination at the bedside showed greenish-brownish stool. This was not obvious melanotic. There is no blood on the tissue and the odor was not consistent with typical melena. Agree with continue twice daily PPI therapy. Will follow her for recurrent bleeding. History of Present Illness Reason for Consultation: melena Attending Physician: Thierno Cook MD History of Present Illness Patient is a 69 yo female here with acute respiratory failure. GI has been consulted due to melena x 2. Patient notes a history of possible gastric ulcers years ago. She is not on PPI therapy at home. She denies abdominal pain, heartburn, reflux. H/H presently 13.3/37.9. BUN 43. Creatinine 0.95. plt 89. Of note, her T bili was 3.3 on admission and is now 1.6. D bili 0.8. No history of cholecystectomy. AST 47. ALT 21. No abdominal imaging available. She is presently on BID PPI therapy. Allergies Allergy/AdvReac Type Severity Reaction Status Date / Time No Known Allergies Allergy Unverified 09/03/24 14:39 Home Medications Medication Instructions Recorded Confirmed Type alprazolam 0.5 mg tablet 0.5 mg PO DAILY 09/03/24 09/03/24 History levothyroxine 112 mcg tablet 112 mcg PO DAILY 09/03/24 09/03/24 History multivitamin 1 tab PO DAILY 09/03/24 09/03/24 History potassium 1 tab PO DAILY 09/03/24 09/03/24 History propranolol 20 mg tablet 20 mg PO BID 09/03/24 09/03/24 History sertraline 50 mg tablet 50 mg PO DAILY 09/03/24 09/03/24 History Patient History Social History Smoking Status: Unknown if ever smoked Hx Alcohol Use: No Hx Substance Use: No Preferred Language: Kyrgyz Communication Ability: Effective [place] Required: No Beliefs That Will Affect Care: None Current Living Situation: Alone Other Information That Helps Us Care for You: No Feels Safe at Home: Yes Safety Concerns: Feels Safe At This Time Assistive Devices: None Review of Systems Constitutional: no fever and no chills Gastrointestinal: + melena; no abdominal pain Psychiatric: no problem reported Physical Exam Constitutional: well developed Respiratory: + respiratory distress; no cough Gastrointestinal (Abdomen): normal bowel sounds, soft, nontender, no hepatosplenomegaly Psychiatric: Orientation: alert and oriented x 3 Results & Data Vital Signs (Past 12 Hours) Vital Signs Temp Pulse Pulse Resp BP Pulse Ox O2 Del Method 09/05/24 11:32 36.3 C L 66 18 101/66 95 Room Air 09/05/24 10:28 61 09/05/24 07:29 36.8 C 63 18 100/65 94 Room Air 09/05/24 02:35 36.3 C L 62 20 95/57 L 93 Room Air PG Care Time/CCT Total # of Minutes Spent Total Time Spent with Patient: Total time spent is greater than 50% in coordination of care (as documented) at patient's floor/unit and/or counseling patient: Coding Level of Care Code 72042 INT INP/OBS CARE 3/75MIN Diagnoses Melena K92.1
[2024-09-05] MEDS: FUROSEMIDE INJ 20 MG/2 ML VIAL IV ONE (14:51)
[2024-09-05 16:13] LABS: Hematocrit (blood only) 35.4 % (37.0-47.0); Hemoglobin 12.7 g/dl (12.0-16.0); Mean Corpuscular Hemoglobin 32.4 pg (25.0-34.0); Mean Corpuscular Hgb Conc 35.9 g/dL (32.0-36.0); Mean Corpuscular Volume 90.3 fL (80.0-100.0); Platelet Count 94 K/uL (130-400); RDW Coefficient of Variation 15.1 % (11.5-14.5); RDW Standard Deviation 49.2 fL (36.4-46.3); Red Blood Count 3.92 M/uL (4.20-5.40); White Blood Count 12.35 K/ul (4.8-10.8)
[2024-09-05 17:00] LABS: Ferritin 131.7 ng/ml (8-388); Total Iron Binding Cap Calc 241 mcg/dl (250-450); Transferrin 172 mg/dl (200-360)
[2024-09-05] MEDS: SUCRALFATE 1 GM/10 ML UDC PO SCH (18:23)
--- NOTE | 2024-09-05 18:28 | Ultrasound Report ---
Clinical history: Elevated bilirubin Technique: Sonography was performed of the right upper quadrant of the abdomen Findings: There is an approximately 5.7 x 4.6 x 4.6 cm mass in the left hepatic lobe Multiple gallstones are present. The gallbladder wall is mildly thickened and edematous, measuring 4 mm. No definite sonographic Andrews sign was detected, though this could be due to pain medication. There is no intrahepatic or extrahepatic bile duct dilatation. The common bile duct measures 6 mm The right kidney appears unremarkable. There is no hydronephrosis. No definite renal calculus or mass is seen The visualized pancreas, aorta, and IVC appear unremarkable. No ascites is seen Impression: 1. Cholelithiasis with possible acute cholecystitis 2. 5.7 cm liver mass with an indeterminate appearance. Metastatic disease or primary liver malignancy is possible. A follow-up liver protocol abdominal MRI with and without intravenous contrast could be obtained Electronically signed by Noe Odom 09-05-2024 6:28 PM
[2024-09-05] MEDS: PANTOprazole 40 MG/10 ML SYR IV SCH (20:29)
[2024-09-06] MEDS: GADOXETATE DISODIUM IV ONE (01:41)
--- NOTE | 2024-09-06 04:40 | Magnetic Resonance Report ---
EXAM: MR abdomen wo/w con CLINICAL HISTORY: 5.7cm liver mass, eval metastatic disease TECHNIQUE: Multiplanar, multisequence MR imaging was performed through the abdomen with and without IV contrast (10cc Eovist). COMPARISON: prior US dated 09/05/2024. FINDINGS: Liver: Normal size with a slightly nodular outline, with hypertrophied left hepatic lobe, suggests chronic parenchymal disease. A large left hepatic lobe partly inferiorly exophytic focal lesion occupying segments II and III, measuring 4.3 x 4.8 x 5.8 cm along maximum cross sections and CC diameters respectively. It shows moderate heterogeneous early post-contrast enhancement with delayed washout, elicited low T1, high STIR signal intensities. Multiple serpiginous portovenous collaterals are noted at the gastro-oesophageal junction. Gallbladder and Biliary System: Cholelithaisis. Intrahepatic and extrahepatic bile ducts are not dilated. Normal enhancement post-contrast. Pancreas: Normal size and contour. Homogeneous signal intensity on T1 and T2-weighted images. No masses or cystic lesions. Normal enhancement post-contrast. Spleen: Normal size and appearance. Homogeneous signal intensity. No focal lesions. Normal enhancement post-contrast. Adrenal Glands: Normal size and morphology bilaterally. No adrenal masses. Normal enhancement post-contrast. Kidneys and Ureters: Normal size, shape, and position of both kidneys. Homogeneous signal intensity on T1 and T2-weighted images. Bilateral small few renal cortical cysts, measuring the largest measure 1.1 cm on the left side (BOSNIAK I). No renal stones, masses, or hydronephrosis. Ureters are unremarkable. Normal enhancement post-contrast. Bowel: A small hiatus hernia. Normal appearance of the visualized bowel loops. No evidence of obstruction, wall thickening, or abnormal dilatation. No abnormal enhancement post-contrast. Vascular Structures: Abdominal aorta and its major branches are normal in caliber. No aneurysm or significant atherosclerosis. Normal enhancement post-contrast. Lymph Nodes: No pathologically enlarged lymph nodes in the abdomen. Peritoneum: No free fluid or free air in the abdomen. Bones: No lytic or sclerotic lesions. Soft Tissues: Normal appearance of the visualized soft tissues. IMPRESSION: 1. Hepatic chronic parenchymal disease, Likely cirrhotic. 2. Left hepatic exophytic focal lesion occupying segments II and III, measuring 4.3 x 4.8 x 5.8 cm. The enhancement pattern suggests hepatocellular carcinoma, rather than metastatic, correlation with AFP, and tissue biopsy is advised. 3. Multiple serpiginous portovenous collaterals are noted at the gastro-oesophageal junction, suggesting portal hypertension. 4. Cholelithiasis, with no acute cholecystitis. 5. Bilateral small few renal cortical cysts, measuring the largest measure 1.1 cm on the left side (BOSNIAK I). 6. A small hiatus hernia. 7. The MRI findings concur with the prior US findings. Electronically signed by Liz Fitzpatrick 09-06-2024 04:39 AM
[2024-09-06 07:11] LABS: Basophils # (auto) 0.08 K/uL (0.00-0.20); Basophils % (auto) 0.7 %; Eosinophils # (auto) 0.19 K/uL (0.00-0.50); Eosinophils % (auto) 1.7 %; Hematocrit (blood only) 33.3 % (37.0-47.0); Hemoglobin 12.1 g/dl (12.0-16.0); Immature Granulocytes # (auto) 0.18 K/uL (0.01-0.20); Immature Granulocytes % (auto) 1.6 %; Lymphocytes # (auto) 2.69 K/uL (1.20-3.40); Mean Corpuscular Hemoglobin 32.8 pg (25.0-34.0); Mean Corpuscular Hgb Conc 36.3 g/dL (32.0-36.0); Mean Corpuscular Volume 90.2 fL (80.0-100.0); Monocytes # (auto) 1.22 K/uL (0.11-0.59); Monocytes % (auto) 10.9 %; Neutrophils # (auto) 6.83 K/uL (1.40-6.50); Neutrophils % (auto) 61.1 %; Platelet Count 96 K/uL (130-400); RDW Coefficient of Variation 14.9 % (11.5-14.5); RDW Standard Deviation 49.4 fL (36.4-46.3); Red Blood Count 3.69 M/uL (4.20-5.40); White Blood Count 11.19 K/ul (4.8-10.8)
[2024-09-06 07:23] LABS: Albumin Globulin Ratio 0.9 (0.9-2); Albumin Level 2.3 gm/dl (3.4-5.0); BUN Creatinine Ratio 44.4 (10-20); Bilirubin,Total 1.5 mg/dl (0.2-1.0); Calcium 8.3 mg/dl (8.6-10.3); Creatinine Clr Calc Pharmacy 68.7 ml/min; Globulin 2.7 gm/dl (2.5-4.0); Magnesium 1.6 mg/dl (1.7-2.4); Potassium 3.1 mmol/L (3.5-5.1)
--- NOTE | 2024-09-06 07:37 | Hospitalist Progress Note ---
Date of Service September 06, 2024 Assessment & Plan (1) Liver mass: Plan: US Liver last evening noted cholelithiasis with possible acute cholecystitis (again denied abdominal pain), HOWEVER also noted 5.7cm liver mass with indeterminate appearance. metastatic disease or primary liver malignancy possible Messaged GI last evening results, added AFP to AM labs and MRI liver protocol for further evaluation AFP pending this morning -- f/u MRI abdomen last evening with noting likely cirrhotic parenchymal disease (hx alcohol use), "Left hepatic exophytic focal lesion occupying segments II and III, measuring 4.3 x 4.8 x 5.8 cm. The enhancement pattern suggests hepatocellular carcinoma, rather than metastatic, correlation with AFP, and tissue biopsy is advised. " Also noted cholelithiasis without acute burton. Portal HTN noted Heme/onc consult placed, likely need for tissue biopsy as well , ?w/ IR Patient wanting to hear options but not sure if will want treatment -- CT guided bx planned for Monday/order placed Palliative consulted for goals of care/meeting w/ son as updated and discussed this morning WBC trending down, remains on Ceftriaxone IV for UTI/blood cx neg on repeat and plan 7 day course. If dc prior, Augmentin per ID Hgb stable but slight drop, remains on protonix IV BID/carafate. GI f/u at [facility] pending above w/ specialty/likely tertiary for surgery if desired. No further bloody BM noted overnight/Lovenox on HOLD/SCDs ordered PT/OT consults, CM to follow. Updated son AM 09/06 Adis. Plan for rehab at ar at this time but course may change pending (2) Melena: Plan: Melena BM overnight/this morning reported 2/5-2/6. No abdominal pain but did have recent Aleve PM w/ xanax at night for sleep and reported hx ulcer/perforation in the past. GI consulted, PPI changed to IV BID, I added carafate given hx and has been continued Avoid NSAIDs, lovenox on hold as above NO FURTHER MELENA REPORTED, monitor/CBC in AM (3) Acute hypoxemic respiratory failure: Plan: presented w/ 4 days chills/rigors/SOB and dysuria on admission concerns for new onset CHF/possible MD. ECHO noted w/ elevated RSVP and dilated R ventricle suspicious for underlying lung disease. No smoking hx/exposure. CTA NEGATIVE for PE, notes PAH Mag replacement ordered/normalized on repeat Lasix 40mg IV x 1 for elevated BNP, scheduled 20mg IV x 1 by pulm on 09/05 and continued daily Ceftriaxone/Doxy IV, dc doxy per pulm/ID, continued on Ceftiraxone for urine. Now on room air, 92%. Continue PPI/carafate for above, incentive spirometer encouraged Supp O2 to maintain sats, plan 2 step prior to dc. Outpt PFTs recs (4) UTI (urinary tract infection): Plan: Complicated UTI, suspect gram-negative bacteremia, sepsis however blood cultures NOT positive for gram negative bacteria at this time Ceftriaxone IV continued, plan 7 day course. Can convert to PO as above if dc prior but suspect will be inpatient (5) Hyponatremia: Plan: Na 132 on admission. ?2nd to sepsis, also now w/ known alcohol use hx in the past (not recently). On sertaline/xanax at baseline but dropped to 128 following lasix on admission. Urine Na <10. TSH wnl. Corisol acceptable IVF ordered but stopped per pulm/lasix ordered. Now w/ cirrhosis/HCC concerns as above and suspect related. Na stable 132 today. Now w/ K 3.1, PO KCL ordered , suspected 2nd to diuretic use. Mag also low 1.6 (likely 2nd to PPI start for above) and IV replacement ordered BMP/Mag in AM (6) Non-ST elevation MD (NSTEMI): Plan: Patient has no chest pain on admission however she did report she has had chest pressure lasting 1 to 2 minutes twice in the prior 4 days. Noted had "freezing chills "when this happened suspicious for rigors. Denies sweating or worsened dyspnea during these episodes suspected demand ischemia from infection/bacteremia above. No CP reported. SOB as outlined above, no significant SOB at present but had been on 3-4L NC AM 09/04, now on room air ECHO w/o wma, cardiology consulted and does not feel cardiac etiology in nature See above (7) Elevated brain natriuretic peptide (BNP) level: Plan: noted, nonspecific no significant LE edema, CXR w/o significant pulmonary edema, defer ongoing diuretic use, especially w/ hypotension per pulm, lasix 20mg IV daily and has been provided today but can change to prn (8) Moderate pulmonary hypertension: Plan: ?underlying ELISE vs lung disease supplemental O2 as needed to maintain sats, now on room air Pulm consulted, appreciate assistance/recs --> provided lasix 20mg IV and see above will need outpt PFT testing (9) Hypomagnesemia: Plan: replaced/resolved but again low and suspect 2nd to protonix start additional IV mag ordered, monitor level in AM/consider mag PO replacement (10) Acute hypokalemia: Plan: see hyponatremia (11) Right ventricular dilation: Plan: noted, ?underlying lung disease, ?2nd to portal HTN from cirrhosis/liver mass CTA chest negative for PE diuretics as above (12) Moderate tricuspid regurgitation: (13) Demand ischemia: Plan: Troponin is elevatedAt 567, downtrended 529. Suspect demand in the setting of acute infection; however given chest pain and acute rapid worsening shortness of breath and downtrending troponin a recent ischemic event was within differential ECHO w/o wma, no CP reported. Cards consulted -- see note, does not suspect cardiac etiology/likely underlying lung disease (14) Bacteremia: Plan: met sepsis criteria on admission w/ leukocytosis/tachypnea, elevated procal, +UA/cx. 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 No other sources identified. Repeat blood cx NGTD x 24hrs, suspected contam, ID to sign off, see note Plan Code status: DNR/DNI DVT prophylaxis: Lovenox SQ placed on HOLD given reported melena and now on PPI/carafate as above. SCDs ordered Dispo: continued inpatient stay, new findings concerning for HCC and heme/onc and palliative have been consulted. Plan for IR biopsy per Dr Merlos on monday, order has been placed PT/OT consults, CM to follow. ?rehab at ar pending course Updated son AM via phone/meeting afternoon Admission and Anticipated Discharge Date Admission Date: September 03, 2024 Supervising Physician Co-Signing Physician Notes The patient was not seen by me. The chart was reviewed. Case discussed with NITIN Lentz. Agree with assessment and plan Subjective Eval this morning, sitting up in chair. Denies further bloody bowel movements, Lovenox on hold, remains on PPI/Carafate. Continues to deny abdominal pain but discussed findings from MRI and concerns for HCC. Discussed consult for options from heme/onc but appears may not want to pursue treatment and discussed will consult palliative as well for discussion/follow along if opts not for treatment. Ok to call children w/ update. Breathing stable at this time on room air, Lasix IV daily per pulmonology 20mg dose. Questions/concerns addressed at this time. Called son Adis with update this morning. He lives about 15 minutes away. Physical Exam 2 Physical Exam: General : 69yo chronically ill appearing female sitting up in recliner chair, NAD, occasional cough but not tachypneic, on room air HEENT: head atraumatic, normocephalic, mmm, trachea midline Resp: diminished in the bases but no significant wheezing/rales, on room air CV: RRR, no significant m/r/g, no pitting edema/calf tenderness GI: +BS, slight distension but NONTENDER, no guarding/rebound, no obvious mass appreciated : purewick, yellow urine MSK/Neuro: generalized fatigue but nonfocal, not confused/answering questions appropriately Psych: AOx3 Results & Data Results & Data Vital Signs (Past 12 Hours) Vital Signs Temp Pulse Pulse Resp BP Pulse Ox O2 Del Method 09/06/24 02:15 36.7 C 71 20 105/67 91 Room Air 09/05/24 23:41 71 09/05/24 22:47 37.8 C H 70 18 112/69 91 Room Air Laboratory Results 09/06/24 06:33 09/06/24 06:33 Mag 1.6 TB 1.5, AST 56, ALT 27, ALP 60 LDH 182 B12 542, Folate 9.02 AFP pending, B1 pending Diagnostic Findings Abdomen Ultrasound 09/05/24 12:25 Clinical history: Elevated bilirubin Technique: Sonography was performed of the right upper quadrant of the abdomen Findings: There is an approximately 5.7 x 4.6 x 4.6 cm mass in the left hepatic lobe Multiple gallstones are present. The gallbladder wall is mildly thickened and edematous, measuring 4 mm. No definite sonographic Andrews sign was detected, though this could be due to pain medication. There is no intrahepatic or extrahepatic bile duct dilatation. The common bile duct measures 6 mm The right kidney appears unremarkable. There is no hydronephrosis. No definite renal calculus or mass is seen The visualized pancreas, aorta, and IVC appear unremarkable. No ascites is seen Impression: 1. Cholelithiasis with possible acute cholecystitis 2. 5.7 cm liver mass with an indeterminate appearance. Metastatic disease or primary liver malignancy is possible. A follow-up liver protocol abdominal MRI with and without intravenous contrast could be obtained Electronically signed by Noe Odom 09-05-2024 6:28 PM Abdomen MRI 09/06/24 00:27 EXAM: MR abdomen wo/w con CLINICAL HISTORY: 5.7cm liver mass, eval metastatic disease TECHNIQUE: Multiplanar, multisequence MR imaging was performed through the abdomen with and without IV contrast (10cc Eovist). COMPARISON: prior US dated 09/05/2024. FINDINGS: Liver: Normal size with a slightly nodular outline, with hypertrophied left hepatic lobe, suggests chronic parenchymal disease. A large left hepatic lobe partly inferiorly exophytic focal lesion occupying segments II and III, measuring 4.3 x 4.8 x 5.8 cm along maximum cross sections and CC diameters respectively. It shows moderate heterogeneous early post-contrast enhancement with delayed washout, elicited low T1, high STIR signal intensities. Multiple serpiginous portovenous collaterals are noted at the gastro-oesophageal junction. Gallbladder and Biliary System: Cholelithaisis. Intrahepatic and extrahepatic bile ducts are not dilated. Normal enhancement post-contrast. Pancreas: Normal size and contour. Homogeneous signal intensity on T1 and T2-weighted images. No masses or cystic lesions. Normal enhancement post-contrast. Spleen: Normal size and appearance. Homogeneous signal intensity. No focal lesions. Normal enhancement post-contrast. Adrenal Glands: Normal size and morphology bilaterally. No adrenal masses. Normal enhancement post-contrast. Kidneys and Ureters: Normal size, shape, and position of both kidneys. Homogeneous signal intensity on T1 and T2-weighted images. Bilateral small few renal cortical cysts, measuring the largest measure 1.1 cm on the left side (BOSNIAK I). No renal stones, masses, or hydronephrosis. Ureters are unremarkable. Normal enhancement post-contrast. Bowel: A small hiatus hernia. Normal appearance of the visualized bowel loops. No evidence of obstruction, wall thickening, or abnormal dilatation. No abnormal enhancement post-contrast. Vascular Structures: Abdominal aorta and its major branches are normal in caliber. No aneurysm or significant atherosclerosis. Normal enhancement post-contrast. Lymph Nodes: No pathologically enlarged lymph nodes in the abdomen. Peritoneum: No free fluid or free air in the abdomen. Bones: No lytic or sclerotic lesions. Soft Tissues: Normal appearance of the visualized soft tissues. IMPRESSION: 1. Hepatic chronic parenchymal disease, Likely cirrhotic. 2. Left hepatic exophytic focal lesion occupying segments II and III, measuring 4.3 x 4.8 x 5.8 cm. The enhancement pattern suggests hepatocellular carcinoma, rather than metastatic, correlation with AFP, and tissue biopsy is advised. 3. Multiple serpiginous portovenous collaterals are noted at the gastro-oesophageal junction, suggesting portal hypertension. 4. Cholelithiasis, with no acute cholecystitis. 5. Bilateral small few renal cortical cysts, measuring the largest measure 1.1 cm on the left side (BOSNIAK I). 6. A small hiatus hernia. 7. The MRI findings concur with the prior US findings. Electronically signed by Liz Fitzpatrick 09-06-2024 04:39 AM PG Care Time/CCT Total # of Minutes Spent Total Time Spent with Patient: Total time spent is greater than 50% in coordination of care (as documented) at patient's floor/unit and/or counseling patient: Coding Level of Care Code 57893 SUB INP/OBS CARE 3/50MIN Diagnoses Liver mass R16.0 Melena K92.1 Acute hypoxemic respiratory failure J96.01 UTI (urinary tract infection) N39.0 Hyponatremia E87.1 Non-ST elevation MD (NSTEMI) I21.4 Elevated brain natriuretic peptide (BNP) level R79.89 Moderate pulmonary hypertension I27.20 Hypomagnesemia E83.42 Acute hypokalemia E87.6 Right ventricular dilation I51.7 Moderate tricuspid regurgitation I07.1 Demand ischemia I24.89 Bacteremia R78.81
[2024-09-06 07:48] LABS: Folate (Folic Acid),Ser orPlas 9.02 ng/ml (>5.38)
[2024-09-06] MEDS: POTASSIUM CHLORIDE CRTAB 20 MEQ TABCR PO STA (08:18)
[2024-09-06] MEDS: MAGNESIUM SULFATE / D5W 1 GM/100 ML BAG IV SCH (08:18)
[2024-09-06] MEDS ORDERED: FUROSEMIDE 20 MG TAB PO SCH (09:00)
--- NOTE | 2024-09-06 09:07 | Infectious Disease Progress Nt ---
Date of Service September 06, 2024 Assessment & Plan (1) UTI (urinary tract infection): (2) Acute hypoxemic respiratory failure: (3) Bacteremia: Plan Problems: #E coli UTI #Staph epi in blood cultures #Thrombocytopenia #History of R TKA c/b PJI (2019) Micro: 09/04 BCx x2: NGTD 09/03 BCx x2: Staph epi in 3/4 bottles 09/03 UCx: E coli (green-sensitive) Abx: Ceftriaxone 2 g 09/03 present Doxycycline 09/03 - present 69 yo F with hypothyroidism, anxiety, depression, R TKA c/b PJI (reportedly in 2019 in [place], s/p revision and 6 weeks IV antibiotics) who presented on 09/03 with weakness and fatigue x 4 days, productive cough, shortness of breath, dysuria, found to have E coli UTI. Also reported chills, and some chest discomfort, dysuria, polyuria, urinary urgency, poor appetite, some loose stools. Per EMS, the pt was hypotensive with BP 88/42, and O2 sat 86% on room air. She was given IVF. On arrival to the ED, T 37, HR 87, BP 120/61, RR 18, 86% on room air, improved on NC. Labs with WBC 13.05, plt 81, Na 132, BNP 2036, procal 6.08. UA with >50 WBCs. RVP negative. CTA chest with no PE, no pneumonia, and evidence of pulmonary arterial hypertension. Given concern for UTI, pt was started on ceftriaxone. Doxycycline added in case of atypical pneumonia. Became hypotensive overnight into t asymptomatic. Blood cultures returned with Staph epi in 3/4 bottles. Leukocytosis increased to 16.27 on 09/04, decreased back to 13 on 09/05. Urine culture growing E coli, green-sensitive. Discussion: Treating for E coli UTI. Also with Staph epi in 3/4 blood culture bottles--pt does not have a central line, no concern for infected hardware (has R TKA that is asymptomatic). May represent contaminant despite growing in multiple blood culture bottles, since there is no clear alternative source. Pt with shortness of breath, productive cough, O2 requirement on admission. RVP negative, and CT without signs of pneumonia however. Recommendations: - Continue ceftriaxone for E coli UTI. Can complete a 7 day course through 09/09. If she discharges prior to then, can transition to a PO antibiotic such as amox/clav - Follow-up repeat blood cultures from 09/04/24 Discussed with primary team. Will sign off. Please page [facility] with further questions. Admission and Anticipated Discharge Date Admission Date: September 03, 2024 Subjective This patient recommendation is based on a telemedicine consult request which was completed asynchronously through chart review and information provided by the primary physician. The patient was not seen or examined today. The evaluation is consultative in nature and all patient care and treatment decisions can either be accepted or rejected by the patient's primary hospital-based treating physician using their own independent medical judgment for their patient. Time Spent Reviewing Chart: 11 - 20 minutes T max 37.8 last night WBC downtrending to 11.19 MRI abd with liver lesion suggestive of HCC Review of System Pt was not seen Physical Exam Physical Exam: Pt was not seen Results & Data Vital Signs (Past 12 Hours) Vital Signs Temp Pulse Pulse Resp BP Pulse Ox O2 Del Method 09/06/24 07:57 37.1 C 61 17 102/65 91 Room Air 09/06/24 02:15 36.7 C 71 20 105/67 91 Room Air 09/05/24 23:41 71 09/05/24 22:47 37.8 C H 70 18 112/69 91 Room Air Laboratory Results Short CBC 09/05/24 09/06/24 Range/Units 15:50 06:33 WBC 12.35 H 11.19 H (4.8-10.8) K/ul Hgb 12.7 12.1 (12.0-16.0) g/dl Hct 35.4 L 33.3 L (37.0-47.0) % Plt Count 94 L 96 L (130-400) K/uL BMP 09/06/24 06:33 Sodium 132 L Potassium 3.1 L Chloride 101 Carbon Dioxide 24 BUN 36 H Creatinine 0.81 Glucose 96 Calcium 8.3 L Liver Function 09/06/24 Range/Units 06:33 Total Bilirubin 1.5 H (0.2-1.0) mg/dl AST 56 H (13-39) U/L ALT 27 (7-52) U/L Alkaline Phosphatase 60 (34-104) U/L Albumin 2.3 L (3.4-5.0) gm/dl Diagnostic Findings Abdomen MRI 09/06/24 00:27 EXAM: MR abdomen wo/w con CLINICAL HISTORY: 5.7cm liver mass, eval metastatic disease TECHNIQUE: Multiplanar, multisequence MR imaging was performed through the abdomen with and without IV contrast (10cc Eovist). COMPARISON: prior US dated 09/05/2024. FINDINGS: Liver: Normal size with a slightly nodular outline, with hypertrophied left hepatic lobe, suggests chronic parenchymal disease. A large left hepatic lobe partly inferiorly exophytic focal lesion occupying segments II and III, measuring 4.3 x 4.8 x 5.8 cm along maximum cross sections and CC diameters respectively. It shows moderate heterogeneous early post-contrast enhancement with delayed washout, elicited low T1, high STIR signal intensities. Multiple serpiginous portovenous collaterals are noted at the gastro-oesophageal junction. Gallbladder and Biliary System: Cholelithaisis. Intrahepatic and extrahepatic bile ducts are not dilated. Normal enhancement post-contrast. Pancreas: Normal size and contour. Homogeneous signal intensity on T1 and T2-weighted images. No masses or cystic lesions. Normal enhancement post-contrast. Spleen: Normal size and appearance. Homogeneous signal intensity. No focal lesions. Normal enhancement post-contrast. Adrenal Glands: Normal size and morphology bilaterally. No adrenal masses. Normal enhancement post-contrast. Kidneys and Ureters: Normal size, shape, and position of both kidneys. Homogeneous signal intensity on T1 and T2-weighted images. Bilateral small few renal cortical cysts, measuring the largest measure 1.1 cm on the left side (BOSNIAK I). No renal stones, masses, or hydronephrosis. Ureters are unremarkable. Normal enhancement post-contrast. Bowel: A small hiatus hernia. Normal appearance of the visualized bowel loops. No evidence of obstruction, wall thickening, or abnormal dilatation. No abnormal enhancement post-contrast. Vascular Structures: Abdominal aorta and its major branches are normal in caliber. No aneurysm or significant atherosclerosis. Normal enhancement post-contrast. Lymph Nodes: No pathologically enlarged lymph nodes in the abdomen. Peritoneum: No free fluid or free air in the abdomen. Bones: No lytic or sclerotic lesions. Soft Tissues: Normal appearance of the visualized soft tissues. IMPRESSION: 1. Hepatic chronic parenchymal disease, Likely cirrhotic. 2. Left hepatic exophytic focal lesion occupying segments II and III, measuring 4.3 x 4.8 x 5.8 cm. The enhancement pattern suggests hepatocellular carcinoma, rather than metastatic, correlation with AFP, and tissue biopsy is advised. 3. Multiple serpiginous portovenous collaterals are noted at the gastro-oesophageal junction, suggesting portal hypertension. 4. Cholelithiasis, with no acute cholecystitis. 5. Bilateral small few renal cortical cysts, measuring the largest measure 1.1 cm on the left side (BOSNIAK I). 6. A small hiatus hernia. 7. The MRI findings concur with the prior US findings. Electronically signed by Liz Fitzpatrick 09-06-2024 04:39 AM Medications Administered Current Inpatient Medications Acetaminophen (Acetaminophen 325 Mg Tab) 650 mg PO Q4H PRN PRN Reason: Pain or Fever Stop: 10/03/24 18:05 Last Admin: 09/04/24 21:07 Dose: 650 mg Alprazolam (Alprazolam 0.5 Mg Tablet) 0.5 mg PO HS PREMA Stop: 10/03/24 20:59 Last Admin: 09/05/24 20:24 Dose: 0.5 mg Enoxaparin Sodium (Enoxaparin Inj 40 Mg/0.4 Ml Syr) 40 mg SQ PM PREMA Stop: 10/03/24 20:59 Last Admin: 09/04/24 20:53 Dose: 40 mg Furosemide (Furosemide Inj 20 Mg/2 Ml Vial) 20 mg IV QAM PREMA Stop: 10/06/24 08:59 Ceftriaxone Sodium (Rocephin) 2,000 mg in 50 mls @ 100 mls/hr IV Q24H PREMA; Protocol Stop: 09/14/24 16:29 Last Infusion: 09/05/24 17:02 Dose: Infused Pantoprazole Sodium (Protonix) 40 mg in 10 mls @ 5 mls/min IV BID PREMA Stop: 10/05/24 20:59 Last Admin: 09/05/24 20:29 Dose: 5 mls/min Magnesium Sulfate/Dextrose (Magnesium Sulfate / D5w) 1 gm in 100 mls @ 50 mls/hr IV Q2H PREMA Stop: 09/06/24 11:59 Last Admin: 09/06/24 08:18 Dose: 50 mls/hr Levothyroxine Sodium (Levothyroxine Sodium 112 Mcg Tablet) 112 mcg PO DAILYBB PREMA Stop: 10/04/24 06:29 Last Admin: 09/06/24 05:59 Dose: 112 mcg Multivitamins (Multivitamin Tab) 1 tab PO DAILY PREMA Stop: 10/04/24 08:59 Last Admin: 09/05/24 07:59 Dose: 1 tab Potassium Chloride (Potassium Chloride Crtab 20 Meq Tabcr) 20 meq PO QAM PREMA Stop: 10/06/24 08:59 Propranolol HCl (Propranolol Hcl 20 Mg Tab) 20 mg PO BID PREMA Stop: 10/03/24 20:59 Last Admin: 09/05/24 20:24 Dose: 20 mg Sertraline HCl (Sertraline Hcl 50 Mg Tablet) 50 mg PO DAILY PREMA Stop: 10/04/24 08:59 Last Admin: 09/05/24 07:59 Dose: 50 mg Sucralfate (Sucralfate 1 Gm/10 Ml Udc) 1 gm PO QID PREMA Stop: 10/05/24 16:59 Last Admin: 09/05/24 20:24 Dose: 1 gm
[2024-09-06] MEDS: POTASSIUM CHLORIDE CRTAB 20 MEQ TABCR PO SCH (09:24)
--- NOTE | 2024-09-06 10:15 | Gastroenterology Progress Note ---
Date of Service September 06, 2024 Assessment & Plan (1) Liver mass: Plan: Most suspicious for hepatocellular carcinoma. I did discuss this finding with the patient and introduced options moving forward including hepatobiliary eval/oncology eval vs palliative care approach. She is to discuss further with family. I also discussed this with her hospitalist team as well. (2) Melena: Plan: No further dark stools. She continues on BID PPI therapy and H/H is normal. Continue to follow H/H. Admission and Anticipated Discharge Date Admission Date: September 03, 2024 Supervising Physician Co-Signing Physician Notes Reason 5 cm hepatocellular carcinoma. Biopsy should not be required for diagnosis here. Patient I believe is decided on the palliative route. With her comorbidities this would appear to be the appropriate choice. Subjective Patient is a 69 yo female GI following for melena. H/H stable at 12.2/33.3. She denies melena since yesterday. Her LFTs were elevated which prompted us to obtain an US of the liver. Unfortunately it did appear that she had a large liver mass. An MRI confirms suspicion for a hepatocellular carcinoma. Patient denied alcohol use to me, however per primary team she did acknowledge alcohol use to another team. 1. Hepatic chronic parenchymal disease, Likely cirrhotic. 2. Left hepatic exophytic focal lesion occupying segments II and III, measuring 4.3 x 4.8 x 5.8 cm. The enhancement pattern suggests hepatocellular carcinoma, rather than metastatic, correlation with AFP, and tissue biopsy is advised. 3. Multiple serpiginous portovenous collaterals are noted at the gastro-oesophageal junction, suggesting portal hypertension. 4. Cholelithiasis, with no acute cholecystitis. 5. Bilateral small few renal cortical cysts, measuring the largest measure 1.1 cm on the left side (BOSNIAK I). 6. A small hiatus hernia. 7. The MRI findings concur with the prior US findings. Review of Systems Gastrointestinal: no abdominal pain, no blood in stools and no melena Physical Exam Constitutional: well developed Respiratory: normal respiratory effort Cardiovascular: Rate/Rhythm: regular rate Gastrointestinal (Abdomen): Inspection/Auscultation: abdomen normal to inspection Psychiatric: Orientation: alert and oriented x 3 Results & Data Results & Data Vital Signs (Past 12 Hours) Vital Signs Temp Pulse Pulse Resp BP Pulse Ox O2 Del Method 09/06/24 07:57 37.1 C 61 17 102/65 91 Room Air 09/06/24 02:15 36.7 C 71 20 105/67 91 Room Air 09/05/24 23:41 71 09/05/24 22:47 37.8 C H 70 18 112/69 91 Room Air PG Care Time/CCT Total # of Minutes Spent Total Time Spent with Patient: Total time spent is greater than 50% in coordination of care (as documented) at patient's floor/unit and/or counseling patient: Coding Level of Care Code 53458 SUB INP/OBS CARE 2/35MIN Diagnoses Liver mass R16.0 Melena K92.1
[2024-09-06 10:16] LABS: Hep B Surface Ag with confirm Negative (Negative)
[2024-09-06 10:22] LABS: Hep C Ab Rflx HepCQuant RNA Negative (Negative)
[2024-09-06] MEDS: FUROSEMIDE INJ 20 MG/2 ML VIAL IV SCH (12:11)
--- NOTE | 2024-09-06 12:27 | Oncology Consultation ---
Date of Consultation September 06, 2024 Assessment & Plan (1) Liver mass: At this point we are waiting for tissue diagnosis, the patient will benefit from IR guided biopsy of the liver lesion. aFP is pending. Once the results of tissue diagnosis are available medical oncology will have further recommendations pending staging which can also include a PET CT scan which can be done on an outpatient basis. Plan Thank you for this interesting oncological consult. Medical oncology will continue to follow the patient make appropriate recommendations. History of Present Illness Reason for Consultation: liver lesion concerns for hepatocellular cancer. Attending Physician: Thierno Cook MD History of Present Illness patient is a very pleasant 69-year-old woman who is in the hospital with acute respiratory failure. She had GI consultation for melena, subsequently had im aging including abdominal ultrasound and abdominal MRI. Ultrasound of the abdomen from 09/05/2024 revealed cholelithiasis with possible acute cholecystitis. 5.7 cm liver mass with an indeterminate appearance. Metastatic disease or primary liver malignancy was a diagnosis. Subsequently abdominal MRI was performed on 09/03/2024 which revealed left hepatic exophytic focal lesion, measuring 4.3 x 4.8 x 5.8 cm. aFP at this point is pending. Medical oncology has been consulted to assist in management of this patient with possible hepatocellular cancer Allergies Allergy/AdvReac Type Severity Reaction Status Date / Time No Known Allergies Allergy Unverified 09/03/24 14:39 Home Medications Medication Instructions Recorded Confirmed Type alprazolam 0.5 mg tablet 0.5 mg PO DAILY 09/03/24 09/03/24 History levothyroxine 112 mcg tablet 112 mcg PO DAILY 09/03/24 09/03/24 History multivitamin 1 tab PO DAILY 09/03/24 09/03/24 History potassium 1 tab PO DAILY 09/03/24 09/03/24 History propranolol 20 mg tablet 20 mg PO BID 09/03/24 09/03/24 History sertraline 50 mg tablet 50 mg PO DAILY 09/03/24 09/03/24 History Patient History Social History Smoking Status: Unknown if ever smoked Hx Alcohol Use: No Hx Substance Use: No Preferred Language: Romanian Communication Ability: Effective Balance Truer Required: No Beliefs That Will Affect Care: None Current Living Situation: Alone Other Information That Helps Us Care for You: No Feels Safe at Home: Yes Safety Concerns: Feels Safe At This Time Assistive Devices: None Review of Systems Review of Systems: All systems reviewed & are unremarkable except as noted in HPI & below Constitutional: as per Subjective / HPI Eyes: as per Subjective / HPI Ear, Nose, Mouth, Throat: as per Subjective / HPI Respiratory: as per Subjective / HPI Cardiovascular: as per Subjective / HPI Gastrointestinal: as per Subjective / HPI Genitourinary: as per Subjective / HPI Musculoskeletal: as per Subjective / HPI Integumentary: as per Subjective / HPI Neurologic: as per Subjective / HPI Psychiatric: as per Subjective / HPI Endocrine: as per Subjective / HPI Hematologic / Lymphatic: as per Subjective / HPI Allergy / Immunological: as per Subjective / HPI Physical Exam Constitutional: WD/WN, vitals as above Eyes: PERRL, conjunctivae normal, anicteric sclerae ENMT: external ear and nose normal, oropharynx normal Neck: trachea midline, no thyromegaly Respiratory: normal respiratory effort, lungs clear to auscultation Cardiovascular: RRR, no murmur, no edema Gastrointestinal (Abdomen): normal bowel sounds, soft, nontender, no hepa tosplenomegaly Musculoskeletal: no cyanosis or clubbing, extremities motor strength 5/5 Skin: no rashes, warm and dry Neurologic: patellar DTR's 2+ bilat, sensation intact Psychiatric: A+Ox3, euthymic affect Genitourinary: no vaginal lesions, no adnexal mass Results & Data Vital Signs (Past 12 Hours) Vital Signs Temp Pulse Pulse Resp BP Pulse Ox O2 Del Method 09/06/24 12:08 36.6 C 57 L 19 104/70 92 Room Air 09/06/24 08:00 63 09/06/24 07:57 37.1 C 61 17 102/65 91 Room Air 09/06/24 02:15 36.7 C 71 20 105/67 91 Room Air
--- NOTE | 2024-09-06 13:50 | Pulmonology Progress Note ---
Date of Service September 06, 2024 Assessment & Plan (1) Moderate pulmonary hypertension: (2) Acute hypoxemic respiratory failure: (3) Elevated brain natriuretic peptide (BNP) level: (4) Acute dyspnea: (5) Liver mass: Plan Suspect pulmonary hypertension secondary to possible COPD and possibly secondary to cirrhosis. Patient denies any significant dyspnea and without significant oxygen requirement. Maintain euvolemia with as needed diuresis. More pressing issue at this time is liver mass which she is being worked up for. Likely hepatocellular carcinoma. Can follow-up with outpatient pulmonary medicine with PFTs and HRCT. No further recommendations at this time. Will sign off. Thanks for the consult. Admission and Anticipated Discharge Date Admission Date: September 03, 2024 Subjective Patient seen and examined. Denies any dyspnea or cough. No chest pain or abdominal complaints at present. Review of Systems Review of Systems: All systems reviewed & are unremarkable except as noted in HPI & below Physical Exam Physical Exam: Constitutional: Patient appears to be of their stated age. Patient is in no apparent distress. Patient is well-developed. Eyes: Pupils are equal round and reactive to light. Conjunctivae are normal. Anicteric sclera. Ears nose, mouth and throat: Mallampati class 2. Normal posterior oropharynx. Uvula is midline. Neck: Trachea is midline. Visual inspection is normal. Respiratory: Clear to auscultation bilaterally. No use of accessory muscles. No significant clubbing noted. Cardiovascular: Regular rate and rhythm. No murmurs. No edema. Gastrointestinal: Normal bowel sounds, soft, nontender and nondistended. No hepatosplenomegaly noted. Musculoskeletal: No cyanosis. Patient is able to move all extremities. Strength is 5 out of 5 in the upper and lower extremities. Skin: No rashes, warm dry and intact. Neurologic: No obvious focal neurological deficits seen. Psychiatric: Alert and oriented x3 with a euthymic affect. Results & Data Results & Data Vital Signs (Past 12 Hours) Vital Signs Temp Pulse Pulse Resp BP Pulse Ox O2 Del Method 09/06/24 12:08 36.6 C 57 L 19 104/70 92 Room Air 09/06/24 08:00 63 09/06/24 07:57 37.1 C 61 17 102/65 91 Room Air 09/06/24 02:15 36.7 C 71 20 105/67 91 Room Air PG Care Time/CCT Total # of Minutes Spent Total Time Spent with Patient: Total time spent is greater than 50% in coordination of care (as documented) at patient's floor/unit and/or counseling patient: Coding Level of Care Code 91406 SUB INP/OBS CARE 08/24MIN Diagnoses Moderate pulmonary hypertension I27.20 Acute hypoxemic respiratory failure J96.01 Elevated brain natriuretic peptide (BNP) level R79.89 Acute dyspnea R06.00 Liver mass R16.0
--- NOTE | 2024-09-06 18:37 | Palliative Care Consultation ---
Date of Consultation September 06, 2024 Assessment & Plan (1) Nausea: Trial Zofran 4mg IV q6h prn Adv diet slowly, blander food/not overly fragrant or spicy Encouraged to inc hydration with current UTI (2) Generalized weakness: (3) Advanced care planning/counseling discussion: A 30min face to face at pt bedside was held with pt, her son and Dr Merlos/oncology findings to date discussed Dr Merlos reviewed cancer work up plan and potential differentials including liver ca, vs met ca from another site such as colon, pancreas etc vs lymphoma or ?not a cancer/liver abscess Ti is agreeable to a liver biopsy and OP petct scan with follow up in onc clinic if found to be cancer She is aware if this is an abscess she will need longer term abtx She and son were in agreement with plan and reccs as above pt has a strong PS at baseline, she is IADLs, lives in her own home and has a QOL she enjoys She hopes this is not a cancer but if it is, she hopes it is limited to the singular liver mass and can be surgically removed as a definitive cure (4) Palliative care by specialist: Introduced Palliative Medicine and explained our role in patient's care. Patient and/or family were receptive to palliative services for goals of care discussions. Reviewed we are different from hospice, a home health nurse visiting service. (5) Liver mass: (6) UTI (urinary tract infection): Plan Nausea recc as above ACP discussion as above Will follow up in Pall Onc clinic at [facility] Thank you for allowing us to participate in the ongoing care of this patient. Please page with any additional concerns. Frank Martins DNP Director, Palliative Medicine History of Present Illness Reason for Consultation: GOC/sx mgt Attending Physician: Thierno Cook MD History of Present Illness Ti Tian is a 69yo female with UTI and newly discovered liver mass She denies any acute pain had some Burning and pressure with urination which has improved and now c/o intermittent nausea appetite improving Allergies Allergy/AdvReac Type Severity Reaction Status Date / Time No Known Allergies Allergy Unverified 09/03/24 14:39 Home Medications Medication Instructions Recorded Confirmed Type alprazolam 0.5 mg tablet 0.5 mg PO DAILY 09/03/24 09/03/24 History levothyroxine 112 mcg tablet 112 mcg PO DAILY 09/03/24 09/03/24 History multivitamin 1 tab PO DAILY 09/03/24 09/03/24 History potassium 1 tab PO DAILY 09/03/24 09/03/24 History propranolol 20 mg tablet 20 mg PO BID 09/03/24 09/03/24 History sertraline 50 mg tablet 50 mg PO DAILY 09/03/24 09/03/24 History Patient History Social History Smoking Status: Unknown if ever smoked Hx Alcohol Use: No Hx Substance Use: No Preferred Language: Icelandic Communication Ability: Effective Manager Inpatient Required: No Beliefs That Will Affect Care: None Current Living Situation: Alone Other Information That Helps Us Care for You: No Feels Safe at Home: Yes Safety Concerns: Feels Safe At This Time Assistive Devices: None Review of Systems Review of Systems: All systems reviewed & are unremarkable except as noted in Subjective Physical Exam Constitutional: WD/WN, vitals as above Eyes: PERRL, conjunctivae normal, anicteric sclerae ENMT: dentition fair Neck: trachea midline, no thyromegaly Respiratory: normal respiratory effort, lungs clear to auscultation Cardiovascular: RRR, no murmur, no edema Gastrointestinal (Abdomen): normal bowel sounds, soft, nontender, no hepatosplenomegaly Musculoskeletal: no cyanosis or clubbing, extremities motor strength 5/5 Skin: + turgor decreased and + pallor Neurologic: AAOx3 Results & Data Vital Signs (Past 12 Hours) Vital Signs Temp Pulse Pulse Resp BP Pulse Ox O2 Del Method 09/06/24 16:08 36.6 C 60 19 107/66 93 Room Air 09/06/24 16:00 58 L 09/06/24 12:08 36.6 C 57 L 19 104/70 92 Room Air 09/06/24 09:00 Room Air 09/06/24 08:00 63 09/06/24 07:57 37.1 C 61 17 102/65 91 Room Air Laboratory Results 09/06/24 09/06/24 09/05/24 Range/Units 06:33 05:58 16:14 WBC 11.19 H (4.8-10.8) K/ul RBC 3.69 L (4.20-5.40) M/uL Hgb 12.1 (12.0-16.0) g/dl Hct 33.3 L (37.0-47.0) % MCV 90.2 (80.0-100.0) fL MCH 32.8 (25.0-34.0) pg MCHC 36.3 H (32.0-36.0) g/dL RDW Std Deviation 49.4 H (36.4-46.3) fL RDW Coeff of Kiley 14.9 H (11.5-14.5) % Plt Count 96 L (130-400) K/uL MPV 13.0 H (9.4-12.4) fL Immature Gran % (Auto) 1.6 % Neut % (Auto) 61.1 % Lymph % (Auto) 24.0 % Foster % (Auto) 10.9 % Eos % (Auto) 1.7 % Baso % (Auto) 0.7 % Neut # (Auto) 6.83 H (1.40-6.50) K/uL Lymph # (Auto) 2.69 (1.20-3.40) K/uL Foster # (Auto) 1.22 H (0.11-0.59) K/uL Eos # (Auto) 0.19 (0.00-0.50) K/uL Baso # (Auto) 0.08 (0.00-0.20) K/uL Immature Gran # (Auto) 0.18 (0.01-0.20) K/uL Toxic Vacuolation Platelet Estimate (Normal) Peripher Smr Path Cons PT (9.0-12.0) Seconds INR (0.9-1.1) ABG pH (7.35-7.45) ABG pCO2 (35-46) mmHg ABG pO2 (80-95) mmHg ABG HCO3 (19-24) mmol/L ABG O2 Saturation (90-95) % ABG Base Excess (-9-1.8) mEq/L Stephen Test (Pos) VBG pH (7.36-7.41) VBG pCO2 (38-50) mmHg VBG pO2 mmHg VBG HCO3 mmol/L VBG O2 Saturation % VBG Base Excess mEq/L Oxygen Given Sodium 132 L (136-145) mmol/L Potassium 3.1 L Chloride 101 (98-107) mmol/L Carbon Dioxide 24 (21-32) mmol/L Anion Gap 7 (3-11) BUN 36 H (6-23) mg/dl Creatinine 0.81 (0.6-1.2) mg/dl Est Cr Clr Drug Dosing 68.7 eGFR 77.56 BUN/Creatinine Ratio 44.4 H (10-20) Glucose 96 (70-99(Fasting)) mg/dl Osmolality (280-300) mOsm/kg Lactate (0.4-2.0) mmol/L Calcium 8.3 L (8.6-10.3) mg/dl Magnesium 1.6 L (1.7-2.4) mg/dl Iron TNP TIBC 241 L (250-450) mcg/dl Transferrin 172 L (200-360) mg/dl Transferrin % Sat TNP Ferritin 131.7 (8-388) ng/ml Total Bilirubin 1.5 H (0.2-1.0) mg/dl Direct Bilirubin (0-0.2) mg/dl AST 56 H ALT 27 (7-52) U/L Alkaline Phosphatase 60 (34-104) U/L Lactate Dehydrogenase 182 (86-244) U/L Troponin I High Sens (0-14) pg/ml B-Natriuretic Peptide (0-100) pg/ml Total Protein 5.0 L (6.0-8.3) gm/dl Albumin 2.3 L (3.4-5.0) gm/dl Globulin 2.7 (2.5-4.0) gm/dl Albumin/Globulin Ratio 0.9 (0.9-2) Tumor Marker AFP Pending Vitamin B1 Pending Vitamin B12 542 (180-914) pg/ml Folate 9.02 (>5.38) ng/ml Procalcitonin (0-0.5) ng/ml TSH (0.300-4.500) uIu/ml Cortisol AM Sample (6.2-22.6) mcg/dl Urine Color Urine Appearance (Clear) Urine pH (4.5-7.5) Ur Specific [place] (1.000-1.030) Urine Protein (Negative) Urine Glucose (UA) (Negative) Urine Ketones (Negative) Urine Blood (Negative) Urine Nitrite (Negative) Urine Bilirubin (Negative) Urine Urobilinogen (Negative) Ur Leukocyte Esterase (Negative) Urine WBC (Auto) (0-5) /hpf Urine RBC (Auto) (0-2) /hpf U Hyaline Cast (Auto) (0-2) /lpf U Epithel Cells (Auto) (0-2) /hpf Urine Bacteria (Auto) (None Seen) Urine Osmolality (500-800) mOsm/kg Ur Random Sodium mmol/L Nasal Screen MRSA (PCR) (Negative) Stool Occult Bld Scrn (Negative) Adenovirus (PCR) (NotDetected) Anaplasma Smear See Comment Babesia Smear See Comment Babesia microti DNA PCR B. pertussis DNA (PCR) (NotDetected) B.parapertussis DNA PCR (NotDetected) Lyme Disease Screen (Negative) C. pneumoniae DNA (PCR) (NotDetected) Coronavirus OC43 (PCR) (NotDetected) Coronavirus HKU1 (PCR) (NotDetected) Coronavirus 229E (PCR) (NotDetected) SARS-CoV-2 (PCR) (NotDetected) Coronavirus NL63 (PCR) (NotDetected) Hepatitis A IgM Ab Pending Hep Bs Antigen Negative (Negative) Hep B Core IgM Ab Pending Hepatitis C Antibody Negative (Negative) Human Metapneumovir PCR (NotDetected) Influenza Type A (PCR) (NotDetected) Influenza Type B (PCR) (NotDetected) M. pneumoniae (PCR) (NotDetected) Parainfluenza 1 (PCR) (NotDetected) Parainfluenza 2 (PCR) (NotDetected) Parainfluenza 3 (PCR) (NotDetected) Parainfluenza 4 (PCR) (NotDetected) RSV (PCR) (NotDetected) Entero/Rhino (PCR) (NotDetected) Staphylococcus sp PCR (NotDetected) mecA/C-Methicil Resis Gene (NotDetected) Staph epidermidis (PCR) (NotDetected) Bld Cult ID Panel PCR (NotDetected) 09/05/24 09/05/24 09/05/24 Range/Units 15:50 12:48 07:23 WBC 12.35 H (4.8-10.8) K/ul RBC 3.92 L (4.20-5.40) M/uL Hgb 12.7 (12.0-16.0) g/dl Hct 35.4 L (37.0-47.0) % MCV 90.3 (80.0-100.0) fL MCH 32.4 (25.0-34.0) pg MCHC 35.9 (32.0-36.0) g/dL RDW Std Deviation 49.2 H (36.4-46.3) fL RDW Coeff of Kiley 15.1 H (11.5-14.5) % Plt Count 94 L (130-400) K/uL MPV 13.0 H (9.4-12.4) fL Immature Gran % (Auto) % Neut % (Auto) % Lymph % (Auto) % Foster % (Auto) % Eos % (Auto) % Baso % (Auto) % Neut # (Auto) (1.40-6.50) K/uL Lymph # (Auto) (1.20-3.40) K/uL Foster # (Auto) (0.11-0.59) K/uL Eos # (Auto) (0.00-0.50) K/uL Baso # (Auto) (0.00-0.20) K/uL Immature Gran # (Auto) (0.01-0.20) K/uL Toxic Vacuolation Platelet Estimate (Normal) Peripher Smr Path Cons PT (9.0-12.0) Seconds INR (0.9-1.1) ABG pH (7.35-7.45) ABG pCO2 (35-46) mmHg ABG pO2 (80-95) mmHg ABG HCO3 (19-24) mmol/L ABG O2 Saturation (90-95) % ABG Base Excess (-9-1.8) mEq/L Stephen Test (Pos) VBG pH (7.36-7.41) VBG pCO2 (38-50) mmHg VBG pO2 mmHg VBG HCO3 mmol/L VBG O2 Saturation % VBG Base Excess mEq/L Oxygen Given Sodium (136-145) mmol/L Potassium Chloride (98-107) mmol/L Carbon Dioxide (21-32) mmol/L Anion Gap (3-11) BUN (6-23) mg/dl Creatinine (0.6-1.2) mg/dl Est Cr Clr Drug Dosing eGFR BUN/Creatinine Ratio (10-20) Glucose (70-99(Fasting)) mg/dl Osmolality (280-300) mOsm/kg Lactate (0.4-2.0) mmol/L Calcium (8.6-10.3) mg/dl Magnesium (1.7-2.4) mg/dl Iron TIBC (250-450) mcg/dl Transferrin (200-360) mg/dl Transferrin % Sat Ferritin (8-388) ng/ml Total Bilirubin (0.2-1.0) mg/dl Direct Bilirubin (0-0.2) mg/dl AST ALT (7-52) U/L Alkaline Phosphatase (34-104) U/L Lactate Dehydrogenase (86-244) U/L Troponin I High Sens (0-14) pg/ml B-Natriuretic Peptide (0-100) pg/ml Total Protein (6.0-8.3) gm/dl Albumin (3.4-5.0) gm/dl Globulin (2.5-4.0) gm/dl Albumin/Globulin Ratio (0.9-2) Tumor Marker AFP Vitamin B1 Vitamin B12 (180-914) pg/ml Folate (>5.38) ng/ml Procalcitonin (0-0.5) ng/ml TSH (0.300-4.500) uIu/ml Cortisol AM Sample 20.14 (6.2-22.6) mcg/dl Urine Color Urine Appearance (Clear) Urine pH (4.5-7.5) Ur Specific [place] (1.000-1.030) Urine Protein (Negative) Urine Glucose (UA) (Negative) Urine Ketones (Negative) Urine Blood (Negative) Urine Nitrite (Negative) Urine Bilirubin (Negative) Urine Urobilinogen (Negative) Ur Leukocyte Esterase (Negative) Urine WBC (Auto) (0-5) /hpf Urine RBC (Auto) (0-2) /hpf U Hyaline Cast (Auto) (0-2) /lpf U Epithel Cells (Auto) (0-2) /hpf Urine Bacteria (Auto) (None Seen) Urine Osmolality (500-800) mOsm/kg Ur Random Sodium mmol/L Nasal Screen MRSA (PCR) (Negative) Stool Occult Bld Scrn (Negative) Adenovirus (PCR) (NotDetected) Anaplasma Smear Babesia Smear Babesia microti DNA PCR Pending B. pertussis DNA (PCR) (NotDetected) B.parapertussis DNA PCR (NotDetected) Lyme Disease Screen (Negative) C. pneumoniae DNA (PCR) (NotDetected) Coronavirus OC43 (PCR) (NotDetected) Coronavirus HKU1 (PCR) (NotDetected) Coronavirus 229E (PCR) (NotDetected) SARS-CoV-2 (PCR) (NotDetected) Coronavirus NL63 (PCR) (NotDetected) Hepatitis A IgM Ab Hep Bs Antigen (Negative) Hep B Core IgM Ab Hepatitis C Antibody (Negative) Human Metapneumovir PCR (NotDetected) Influenza Type A (PCR) (NotDetected) Influenza Type B (PCR) (NotDetected) M. pneumoniae (PCR) (NotDetected) Parainfluenza 1 (PCR) (NotDetected) Parainfluenza 2 (PCR) (NotDetected) Parainfluenza 3 (PCR) (NotDetected) Parainfluenza 4 (PCR) (NotDetected) RSV (PCR) (NotDetected) Entero/Rhino (PCR) (NotDetected) Staphylococcus sp PCR (NotDetected) mecA/C-Methicil Resis Gene (NotDetected) Staph epidermidis (PCR) (NotDetected) Bld Cult ID Panel PCR (NotDetected) 09/05/24 09/05/24 09/04/24 Range/Units 07:15 04:50 Unknown WBC 13.03 H (4.8-10.8) K/ul RBC 4.21 (4.20-5.40) M/uL Hgb 13.3 (12.0-16.0) g/dl Hct 37.9 (37.0-47.0) % MCV 90.0 (80.0-100.0) fL MCH 31.6 (25.0-34.0) pg MCHC 35.1 (32.0-36.0) g/dL RDW Std Deviation 49.9 H (36.4-46.3) fL RDW Coeff of Kiley 15.2 H (11.5-14.5) % Plt Count 89 L (130-400) K/uL MPV 12.9 H (9.4-12.4) fL Immature Gran % (Auto) 0.8 % Neut % (Auto) 68.5 % Lymph % (Auto) 16.9 % Foster % (Auto) 11.6 % Eos % (Auto) 1.7 % Baso % (Auto) 0.5 % Neut # (Auto) 8.93 H (1.40-6.50) K/uL Lymph # (Auto) 2.20 (1.20-3.40) K/uL Foster # (Auto) 1.51 H (0.11-0.59) K/uL Eos # (Auto) 0.22 (0.00-0.50) K/uL Baso # (Auto) 0.07 (0.00-0.20) K/uL Immature Gran # (Auto) 0.10 (0.01-0.20) K/uL Toxic Vacuolation Platelet Estimate (Normal) Peripher Smr Path Cons PT (9.0-12.0) Seconds INR (0.9-1.1) ABG pH 7.49 H (7.35-7.45) ABG pCO2 31 L (35-46) mmHg ABG pO2 61 L (80-95) mmHg ABG HCO3 24 (19-24) mmol/L ABG O2 Saturation 94.7 (90-95) % ABG Base Excess 1.0 (-9-1.8) mEq/L Stephen Test Pos (Pos) VBG pH (7.36-7.41) VBG pCO2 (38-50) mmHg VBG pO2 mmHg VBG HCO3 mmol/L VBG O2 Saturation % VBG Base Excess mEq/L Oxygen Given ROOM AIR Sodium 129 L (136-145) mmol/L Potassium 3.7 Chloride 99 (98-107) mmol/L Carbon Dioxide 23 (21-32) mmol/L Anion Gap 7 (3-11) BUN 43 H (6-23) mg/dl Creatinine 0.95 (0.6-1.2) mg/dl Est Cr Clr Drug Dosing 58.4 eGFR 64.05 BUN/Creatinine Ratio 45.3 H (10-20) Glucose 97 (70-99(Fasting)) mg/dl Osmolality (280-300) mOsm/kg Lactate (0.4-2.0) mmol/L Calcium 8.4 L (8.6-10.3) mg/dl Magnesium 1.8 (1.7-2.4) mg/dl Iron TIBC (250-450) mcg/dl Transferrin (200-360) mg/dl Transferrin % Sat Ferritin (8-388) ng/ml Total Bilirubin 1.6 H D (0.2-1.0) mg/dl Direct Bilirubin 0.8 H (0-0.2) mg/dl AST 47 H ALT 21 (7-52) U/L Alkaline Phosphatase 62 (34-104) U/L Lactate Dehydrogenase (86-244) U/L Troponin I High Sens (0-14) pg/ml B-Natriuretic Peptide (0-100) pg/ml Total Protein 5.5 L (6.0-8.3) gm/dl Albumin 2.6 L (3.4-5.0) gm/dl Globulin (2.5-4.0) gm/dl Albumin/Globulin Ratio (0.9-2) Tumor Marker AFP Vitamin B1 Vitamin B12 (180-914) pg/ml Folate (>5.38) ng/ml Procalcitonin 7.88 H (0-0.5) ng/ml TSH (0.300-4.500) uIu/ml Cortisol AM Sample (6.2-22.6) mcg/dl Urine Color Urine Appearance (Clear) Urine pH (4.5-7.5) Ur Specific [place] (1.000-1.030) Urine Protein (Negative) Urine Glucose (UA) (Negative) Urine Ketones (Negative) Urine Blood (Negative) Urine Nitrite (Negative) Urine Bilirubin (Negative) Urine Urobilinogen (Negative) Ur Leukocyte Esterase (Negative) Urine WBC (Auto) (0-5) /hpf Urine RBC (Auto) (0-2) /hpf U Hyaline Cast (Auto) (0-2) /lpf U Epithel Cells (Auto) (0-2) /hpf Urine Bacteria (Auto) (None Seen) Urine Osmolality 580 (500-800) mOsm/kg Ur Random Sodium < 10 mmol/L Nasal Screen MRSA (PCR) Positive A (Negative) Stool Occult Bld Scrn (Negative) Adenovirus (PCR) (NotDetected) Anaplasma Smear Babesia Smear Babesia microti DNA PCR B. pertussis DNA (PCR) (NotDetected) B.parapertussis DNA PCR (NotDetected) Lyme Disease Screen (Negative) C. pneumoniae DNA (PCR) (NotDetected) Coronavirus OC43 (PCR) (NotDetected) Coronavirus HKU1 (PCR) (NotDetected) Coronavirus 229E (PCR) (NotDetected) SARS-CoV-2 (PCR) (NotDetected) Coronavirus NL63 (PCR) (NotDetected) Hepatitis A IgM Ab Hep Bs Antigen (Negative) Hep B Core IgM Ab Hepatitis C Antibody (Negative) Human Metapneumovir PCR (NotDetected) Influenza Type A (PCR) (NotDetected) Influenza Type B (PCR) (NotDetected) M. pneumoniae (PCR) (NotDetected) Parainfluenza 1 (PCR) (NotDetected) Parainfluenza 2 (PCR) (NotDetected) Parainfluenza 3 (PCR) (NotDetected) Parainfluenza 4 (PCR) (NotDetected) RSV (PCR) (NotDetected) Entero/Rhino (PCR) (NotDetected) Staphylococcus sp PCR (NotDetected) mecA/C-Methicil Resis Gene (NotDetected) Staph epidermidis (PCR) (NotDetected) Bld Cult ID Panel PCR (NotDetected) 09/04/24 09/04/24 09/04/24 Range/Units 21:55 19:20 14:08 WBC 16.27 H (4.8-10.8) K/ul RBC 4.84 (4.20-5.40) M/uL Hgb 15.5 (12.0-16.0) g/dl Hct 44.1 (37.0-47.0) % MCV 91.1 (80.0-100.0) fL MCH 32.0 (25.0-34.0) pg MCHC 35.1 (32.0-36.0) g/dL RDW Std Deviation 51.3 H (36.4-46.3) fL RDW Coeff of Kiley 15.4 H (11.5-14.5) % Plt Count 100 L (130-400) K/uL MPV 12.3 (9.4-12.4) fL Immature Gran % (Auto) % Neut % (Auto) % Lymph % (Auto) % Foster % (Auto) % Eos % (Auto) % Baso % (Auto) % Neut # (Auto) (1.40-6.50) K/uL Lymph # (Auto) (1.20-3.40) K/uL Foster # (Auto) (0.11-0.59) K/uL Eos # (Auto) (0.00-0.50) K/uL Baso # (Auto) (0.00-0.20) K/uL Immature Gran # (Auto) (0.01-0.20) K/uL Toxic Vacuolation Platelet Estimate (Normal) Peripher Smr Path Cons PT (9.0-12.0) Seconds INR (0.9-1.1) ABG pH (7.35-7.45) ABG pCO2 (35-46) mmHg ABG pO2 (80-95) mmHg ABG HCO3 (19-24) mmol/L ABG O2 Saturation (90-95) % ABG Base Excess (-9-1.8) mEq/L Stephen Test (Pos) VBG pH (7.36-7.41) VBG pCO2 (38-50) mmHg VBG pO2 mmHg VBG HCO3 mmol/L VBG O2 Saturation % VBG Base Excess mEq/L Oxygen Given Sodium 129 L (136-145) mmol/L Potassium 3.5 Chloride 96 L (98-107) mmol/L Carbon Dioxide 24 (21-32) mmol/L Anion Gap 9 (3-11) BUN 36 H (6-23) mg/dl Creatinine 1.20 (0.6-1.2) mg/dl Est Cr Clr Drug Dosing 46.1 eGFR 48.39 BUN/Creatinine Ratio 30.0 H (10-20) Glucose 108 H (70-99(Fasting)) mg/dl Osmolality 281 (280-300) mOsm/kg Lactate (0.4-2.0) mmol/L Calcium 8.5 L (8.6-10.3) mg/dl Magnesium (1.7-2.4) mg/dl Iron TIBC (250-450) mcg/dl Transferrin (200-360) mg/dl Transferrin % Sat Ferritin (8-388) ng/ml Total Bilirubin (0.2-1.0) mg/dl Direct Bilirubin (0-0.2) mg/dl AST ALT (7-52) U/L Alkaline Phosphatase (34-104) U/L Lactate Dehydrogenase (86-244) U/L Troponin I High Sens (0-14) pg/ml B-Natriuretic Peptide (0-100) pg/ml Total Protein (6.0-8.3) gm/dl Albumin (3.4-5.0) gm/dl Globulin (2.5-4.0) gm/dl Albumin/Globulin Ratio (0.9-2) Tumor Marker AFP Vitamin B1 Vitamin B12 (180-914) pg/ml Folate (>5.38) ng/ml Procalcitonin (0-0.5) ng/ml TSH (0.300-4.500) uIu/ml Cortisol AM Sample (6.2-22.6) mcg/dl Urine Color Urine Appearance (Clear) Urine pH (4.5-7.5) Ur Specific [place] (1.000-1.030) Urine Protein (Negative) Urine Glucose (UA) (Negative) Urine Ketones (Negative) Urine Blood (Negative) Urine Nitrite (Negative) Urine Bilirubin (Negative) Urine Urobilinogen (Negative) Ur Leukocyte Esterase (Negative) Urine WBC (Auto) (0-5) /hpf Urine RBC (Auto) (0-2) /hpf U Hyaline Cast (Auto) (0-2) /lpf U Epithel Cells (Auto) (0-2) /hpf Urine Bacteria (Auto) (None Seen) Urine Osmolality (500-800) mOsm/kg Ur Random Sodium mmol/L Nasal Screen MRSA (PCR) (Negative) Stool Occult Bld Scrn Positive A (Negative) Adenovirus (PCR) (NotDetected) Anaplasma Smear Babesia Smear Babesia microti DNA PCR B. pertussis DNA (PCR) (NotDetected) B.parapertussis DNA PCR (NotDetected) Lyme Disease Screen (Negative) C. pneumoniae DNA (PCR) (NotDetected) Coronavirus OC43 (PCR) (NotDetected) Coronavirus HKU1 (PCR) (NotDetected) Coronavirus 229E (PCR) (NotDetected) SARS-CoV-2 (PCR) (NotDetected) Coronavirus NL63 (PCR) (NotDetected) Hepatitis A IgM Ab Hep Bs Antigen (Negative) Hep B Core IgM Ab Hepatitis C Antibody (Negative) Human Metapneumovir PCR (NotDetected) Influenza Type A (PCR) (NotDetected) Influenza Type B (PCR) (NotDetected) M. pneumoniae (PCR) (NotDetected) Parainfluenza 1 (PCR) (NotDetected) Parainfluenza 2 (PCR) (NotDetected) Parainfluenza 3 (PCR) (NotDetected) Parainfluenza 4 (PCR) (NotDetected) RSV (PCR) (NotDetected) Entero/Rhino (PCR) (NotDetected) Staphylococcus sp PCR (NotDetected) mecA/C-Methicil Resis Gene (NotDetected) Staph epidermidis (PCR) (NotDetected) Bld Cult ID Panel PCR (NotDetected) 09/04/24 09/04/24 09/03/24 Range/Units 09:45 05:43 17:09 WBC 13.80 H (4.8-10.8) K/ul RBC 4.23 (4.20-5.40) M/uL Hgb 13.6 (12.0-16.0) g/dl Hct 38.0 (37.0-47.0) % MCV 89.8 (80.0-100.0) fL MCH 32.2 (25.0-34.0) pg MCHC 35.8 (32.0-36.0) g/dL RDW Std Deviation 49.1 H (36.4-46.3) fL RDW Coeff of Kiley 15.0 H (11.5-14.5) % Plt Count 77 L (130-400) K/uL MPV 12.1 (9.4-12.4) fL Immature Gran % (Auto) 1.2 % Neut % (Auto) 78.5 % Lymph % (Auto) 9.9 % Foster % (Auto) 9.9 % Eos % (Auto) 0.1 % Baso % (Auto) 0.4 % Neut # (Auto) 10.83 H (1.40-6.50) K/uL Lymph # (Auto) 1.37 (1.20-3.40) K/uL Foster # (Auto) 1.37 H (0.11-0.59) K/uL Eos # (Auto) 0.01 (0.00-0.50) K/uL Baso # (Auto) 0.05 (0.00-0.20) K/uL Immature Gran # (Auto) 0.17 (0.01-0.20) K/uL Toxic Vacuolation Platelet Estimate (Normal) Peripher Smr Path Cons PT (9.0-12.0) Seconds INR (0.9-1.1) ABG pH (7.35-7.45) ABG pCO2 (35-46) mmHg ABG pO2 (80-95) mmHg ABG HCO3 (19-24) mmol/L ABG O2 Saturation (90-95) % ABG Base Excess (-9-1.8) mEq/L Stephen Test (Pos) VBG pH (7.36-7.41) VBG pCO2 (38-50) mmHg VBG pO2 mmHg VBG HCO3 mmol/L VBG O2 Saturation % VBG Base Excess mEq/L Oxygen Given Sodium 128 L (136-145) mmol/L Potassium 3.5 Chloride 99 (98-107) mmol/L Carbon Dioxide 21 (21-32) mmol/L Anion Gap 8 (3-11) BUN 30 H (6-23) mg/dl Creatinine 1.16 (0.6-1.2) mg/dl Est Cr Clr Drug Dosing 50.3 eGFR 50.40 BUN/Creatinine Ratio 25.9 H (10-20) Glucose 135 H (70-99(Fasting)) mg/dl Osmolality (280-300) mOsm/kg Lactate 1.5 (0.4-2.0) mmol/L Calcium 8.3 L (8.6-10.3) mg/dl Magnesium 1.7 (1.7-2.4) mg/dl Iron TIBC (250-450) mcg/dl Transferrin (200-360) mg/dl Transferrin % Sat Ferritin (8-388) ng/ml Total Bilirubin (0.2-1.0) mg/dl Direct Bilirubin (0-0.2) mg/dl AST ALT (7-52) U/L Alkaline Phosphatase (34-104) U/L Lactate Dehydrogenase (86-244) U/L Troponin I High Sens (0-14) pg/ml B-Natriuretic Peptide (0-100) pg/ml Total Protein (6.0-8.3) gm/dl Albumin (3.4-5.0) gm/dl Globulin (2.5-4.0) gm/dl Albumin/Globulin Ratio (0.9-2) Tumor Marker AFP Vitamin B1 Vitamin B12 (180-914) pg/ml Folate (>5.38) ng/ml Procalcitonin (0-0.5) ng/ml TSH 0.459 (0.300-4.500) uIu/ml Cortisol AM Sample (6.2-22.6) mcg/dl Urine Color Urine Appearance (Clear) Urine pH (4.5-7.5) Ur Specific [place] (1.000-1.030) Urine Protein (Negative) Urine Glucose (UA) (Negative) Urine Ketones (Negative) Urine Blood (Negative) Urine Nitrite (Negative) Urine Bilirubin (Negative) Urine Urobilinogen (Negative) Ur Leukocyte Esterase (Negative) Urine WBC (Auto) (0-5) /hpf Urine RBC (Auto) (0-2) /hpf U Hyaline Cast (Auto) (0-2) /lpf U Epithel Cells (Auto) (0-2) /hpf Urine Bacteria (Auto) (None Seen) Urine Osmolality (500-800) mOsm/kg Ur Random Sodium mmol/L Nasal Screen MRSA (PCR) (Negative) Stool Occult Bld Scrn (Negative) Adenovirus (PCR) (NotDetected) Anaplasma Smear Babesia Smear Babesia microti DNA PCR B. pertussis DNA (PCR) (NotDetected) B.parapertussis DNA PCR (NotDetected) Lyme Disease Screen Negative (Negative) C. pneumoniae DNA (PCR) (NotDetected) Coronavirus OC43 (PCR) (NotDetected) Coronavirus HKU1 (PCR) (NotDetected) Coronavirus 229E (PCR) (NotDetected) SARS-CoV-2 (PCR) (NotDetected) Coronavirus NL63 (PCR) (NotDetected) Hepatitis A IgM Ab Hep Bs Antigen (Negative) Hep B Core IgM Ab Hepatitis C Antibody (Negative) Human Metapneumovir PCR (NotDetected) Influenza Type A (PCR) (NotDetected) Influenza Type B (PCR) (NotDetected) M. pneumoniae (PCR) (NotDetected) Parainfluenza 1 (PCR) (NotDetected) Parainfluenza 2 (PCR) (NotDetected) Parainfluenza 3 (PCR) (NotDetected) Parainfluenza 4 (PCR) (NotDetected) RSV (PCR) (NotDetected) Entero/Rhino (PCR) (NotDetected) Staphylococcus sp PCR DETECTED A (NotDetected) mecA/C-Methicil Resis Gene Not Detected (NotDetected) Staph epidermidis (PCR) DETECTED A (NotDetected) Bld Cult ID Panel PCR See PCR Comment (NotDetected) 09/03/24 09/03/24 09/03/24 Range/Units 16:48 14:13 13:02 WBC (4.8-10.8) K/ul RBC (4.20-5.40) M/uL Hgb (12.0-16.0) g/dl Hct (37.0-47.0) % MCV (80.0-100.0) fL MCH (25.0-34.0) pg MCHC (32.0-36.0) g/dL RDW Std Deviation (36.4-46.3) fL RDW Coeff of Kiley (11.5-14.5) % Plt Count (130-400) K/uL MPV (9.4-12.4) fL Immature Gran % (Auto) % Neut % (Auto) % Lymph % (Auto) % Foster % (Auto) % Eos % (Auto) % Baso % (Auto) % Neut # (Auto) (1.40-6.50) K/uL Lymph # (Auto) (1.20-3.40) K/uL Foster # (Auto) (0.11-0.59) K/uL Eos # (Auto) (0.00-0.50) K/uL Baso # (Auto) (0.00-0.20) K/uL Immature Gran # (Auto) (0.01-0.20) K/uL Toxic Vacuolation Platelet Estimate (Normal) Peripher Smr Path Cons PT (9.0-12.0) Seconds INR (0.9-1.1) ABG pH (7.35-7.45) ABG pCO2 (35-46) mmHg ABG pO2 (80-95) mmHg ABG HCO3 (19-24) mmol/L ABG O2 Saturation (90-95) % ABG Base Excess (-9-1.8) mEq/L Stephen Test (Pos) VBG pH 7.42 H (7.36-7.41) VBG pCO2 30 L (38-50) mmHg VBG pO2 47 mmHg VBG HCO3 20 mmol/L VBG O2 Saturation 76.8 % VBG Base Excess -3.8 mEq/L Oxygen Given Sodium (136-145) mmol/L Potassium 3.1 L Chloride (98-107) mmol/L Carbon Dioxide (21-32) mmol/L Anion Gap (3-11) BUN (6-23) mg/dl Creatinine (0.6-1.2) mg/dl Est Cr Clr Drug Dosing eGFR BUN/Creatinine Ratio (10-20) Glucose (70-99(Fasting)) mg/dl Osmolality (280-300) mOsm/kg Lactate (0.4-2.0) mmol/L Calcium (8.6-10.3) mg/dl Magnesium (1.7-2.4) mg/dl Iron TIBC (250-450) mcg/dl Transferrin (200-360) mg/dl Transferrin % Sat Ferritin (8-388) ng/ml Total Bilirubin (0.2-1.0) mg/dl Direct Bilirubin (0-0.2) mg/dl AST 37 ALT (7-52) U/L Alkaline Phosphatase (34-104) U/L Lactate Dehydrogenase (86-244) U/L Troponin I High Sens 529.0 H* (0-14) pg/ml B-Natriuretic Peptide (0-100) pg/ml Total Protein (6.0-8.3) gm/dl Albumin (3.4-5.0) gm/dl Globulin (2.5-4.0) gm/dl Albumin/Globulin Ratio (0.9-2) Tumor Marker AFP Vitamin B1 Vitamin B12 (180-914) pg/ml Folate (>5.38) ng/ml Procalcitonin (0-0.5) ng/ml TSH (0.300-4.500) uIu/ml Cortisol AM Sample (6.2-22.6) mcg/dl Urine Color Dark Yellow Urine Appearance Cloudy A (Clear) Urine pH 7.5 (4.5-7.5) Ur Specific Delco 1.042 H (1.000-1.030) Urine Protein Trace H (Negative) Urine Glucose (UA) Negative (Negative) Urine Ketones Trace H (Negative) Urine Blood 2+ H (Negative) Urine Nitrite Negative (Negative) Urine Bilirubin Negative (Negative) Urine Urobilinogen Negative (Negative) Ur Leukocyte Esterase 3+ H (Negative) Urine WBC (Auto) >50 H (0-5) /hpf Urine RBC (Auto) >20 H (0-2) /hpf U Hyaline Cast (Auto) 0-2 (0-2) /lpf U Epithel Cells (Auto) 0-2 (0-2) /hpf Urine Bacteria (Auto) 4+ H (None Seen) Urine Osmolality (500-800) mOsm/kg Ur Random Sodium mmol/L Nasal Screen MRSA (PCR) (Negative) Stool Occult Bld Scrn (Negative) Adenovirus (PCR) (NotDetected) Anaplasma Smear Babesia Smear Babesia microti DNA PCR B. pertussis DNA (PCR) (NotDetected) B.parapertussis DNA PCR (NotDetected) Lyme Disease Screen (Negative) C. pneumoniae DNA (PCR) (NotDetected) Coronavirus OC43 (PCR) (NotDetected) Coronavirus HKU1 (PCR) (NotDetected) Coronavirus 229E (PCR) (NotDetected) SARS-CoV-2 (PCR) (NotDetected) Coronavirus NL63 (PCR) (NotDetected) Hepatitis A IgM Ab Hep Bs Antigen (Negative) Hep B Core IgM Ab Hepatitis C Antibody (Negative) Human Metapneumovir PCR (NotDetected) Influenza Type A (PCR) (NotDetected) Influenza Type B (PCR) (NotDetected) M. pneumoniae (PCR) (NotDetected) Parainfluenza 1 (PCR) (NotDetected) Parainfluenza 2 (PCR) (NotDetected) Parainfluenza 3 (PCR) (NotDetected) Parainfluenza 4 (PCR) (NotDetected) RSV (PCR) (NotDetected) Entero/Rhino (PCR) (NotDetected) Staphylococcus sp PCR (NotDetected) mecA/C-Methicil Resis Gene (NotDetected) Staph epidermidis (PCR) (NotDetected) Bld Cult ID Panel PCR (NotDetected) 09/03/24 Range/Units 12:37 WBC 13.05 H (4.8-10.8) K/ul RBC 4.63 (4.20-5.40) M/uL Hgb 15.0 (12.0-16.0) g/dl Hct 41.8 (37.0-47.0) % MCV 90.3 (80.0-100.0) fL MCH 32.4 (25.0-34.0) pg MCHC 35.9 (32.0-36.0) g/dL RDW Std Deviation 48.4 H (36.4-46.3) fL RDW Coeff of Kiley 14.6 H (11.5-14.5) % Plt Count 81 L (130-400) K/uL MPV 12.0 (9.4-12.4) fL Immature Gran % (Auto) 1.5 % Neut % (Auto) 82.4 % Lymph % (Auto) 6.8 % Foster % (Auto) 6.8 % Eos % (Auto) 2.2 % Baso % (Auto) 0.3 % Neut # (Auto) 10.74 H (1.40-6.50) K/uL Lymph # (Auto) 0.89 L (1.20-3.40) K/uL Foster # (Auto) 0.89 H (0.11-0.59) K/uL Eos # (Auto) 0.29 (0.00-0.50) K/uL Baso # (Auto) 0.04 (0.00-0.20) K/uL Immature Gran # (Auto) 0.20 (0.01-0.20) K/uL Toxic Vacuolation 3+ Platelet Estimate Decreased L (Normal) Peripher Smr Path Cons PT 13.1 H (9.0-12.0) Seconds INR 1.2 H (0.9-1.1) ABG pH (7.35-7.45) ABG pCO2 (35-46) mmHg ABG pO2 (80-95) mmHg ABG HCO3 (19-24) mmol/L ABG O2 Saturation (90-95) % ABG Base Excess (-9-1.8) mEq/L Stephen Test (Pos) VBG pH (7.36-7.41) VBG pCO2 (38-50) mmHg VBG pO2 mmHg VBG HCO3 mmol/L VBG O2 Saturation % VBG Base Excess mEq/L Oxygen Given Sodium 132 L (136-145) mmol/L Potassium TNP Chloride 100 (98-107) mmol/L Carbon Dioxide 21 (21-32) mmol/L Anion Gap 11 (3-11) BUN 27 H (6-23) mg/dl Creatinine 1.03 (0.6-1.2) mg/dl Est Cr Clr Drug Dosing Not Reportable eGFR 58.13 BUN/Creatinine Ratio 26.2 H (10-20) Glucose 119 H (70-99(Fasting)) mg/dl Osmolality (280-300) mOsm/kg Lactate (0.4-2.0) mmol/L Calcium 9.1 (8.6-10.3) mg/dl Magnesium 1.4 L (1.7-2.4) mg/dl Iron TIBC (250-450) mcg/dl Transferrin (200-360) mg/dl Transferrin % Sat Ferritin (8-388) ng/ml Total Bilirubin 3.3 H (0.2-1.0) mg/dl Direct Bilirubin (0-0.2) mg/dl AST TNP ALT 18 (7-52) U/L Alkaline Phosphatase 90 (34-104) U/L Lactate Dehydrogenase (86-244) U/L Troponin I High Sens 567.7 H* (0-14) pg/ml B-Natriuretic Peptide 2036 H (0-100) pg/ml Total Protein 6.1 (6.0-8.3) gm/dl Albumin 2.9 L (3.4-5.0) gm/dl Globulin 3.2 (2.5-4.0) gm/dl Albumin/Globulin Ratio 0.9 (0.9-2) Tumor Marker AFP Vitamin B1 Vitamin B12 (180-914) pg/ml Folate (>5.38) ng/ml Procalcitonin 6.08 H (0-0.5) ng/ml TSH (0.300-4.500) uIu/ml Cortisol AM Sample (6.2-22.6) mcg/dl Urine Color Urine Appearance (Clear) Urine pH (4.5-7.5) Ur Specific [place] (1.000-1.030) Urine Protein (Negative) Urine Glucose (UA) (Negative) Urine Ketones (Negative) Urine Blood (Negative) Urine Nitrite (Negative) Urine Bilirubin (Negative) Urine Urobilinogen (Negative) Ur Leukocyte Esterase (Negative) Urine WBC (Auto) (0-5) /hpf Urine RBC (Auto) (0-2) /hpf U Hyaline Cast (Auto) (0-2) /lpf U Epithel Cells (Auto) (0-2) /hpf Urine Bacteria (Auto) (None Seen) Urine Osmolality (500-800) mOsm/kg Ur Random Sodium mmol/L Nasal Screen MRSA (PCR) (Negative) Stool Occult Bld Scrn (Negative) Adenovirus (PCR) Not Detected (NotDetected) Anaplasma Smear Babesia Smear Babesia microti DNA PCR B. pertussis DNA (PCR) Not Detected (NotDetected) B.parapertussis DNA PCR Not Detected (NotDetected) Lyme Disease Screen (Negative) C. pneumoniae DNA (PCR) Not Detected (NotDetected) Coronavirus OC43 (PCR) Not Detected (NotDetected) Coronavirus HKU1 (PCR) Not Detected (NotDetected) Coronavirus 229E (PCR) Not Detected (NotDetected) SARS-CoV-2 (PCR) Not Detected (NotDetected) Coronavirus NL63 (PCR) Not Detected (NotDetected) Hepatitis A IgM Ab Hep Bs Antigen (Negative) Hep B Core IgM Ab Hepatitis C Antibody (Negative) Human Metapneumovir PCR Not Detected (NotDetected) Influenza Type A (PCR) Not Detected (NotDetected) Influenza Type B (PCR) Not Detected (NotDetected) M. pneumoniae (PCR) Not Detected (NotDetected) Parainfluenza 1 (PCR) Not Detected (NotDetected) Parainfluenza 2 (PCR) Not Detected (NotDetected) Parainfluenza 3 (PCR) Not Detected (NotDetected) Parainfluenza 4 (PCR) Not Detected (NotDetected) RSV (PCR) Not Detected (NotDetected) Entero/Rhino (PCR) Not Detected (NotDetected) Staphylococcus sp PCR (NotDetected) mecA/C-Methicil Resis Gene (NotDetected) Staph epidermidis (PCR) (NotDetected) Bld Cult ID Panel PCR (NotDetected) Diagnostic Findings Chest CTA 09/03/24 12:47 CT angio chest PE protocol CT DOSE: 697.57 mGy.cm HISTORY: Dyspnea; hypoxia. TECHNIQUE: Multiple CTA images of the chest were obtained after the intravenous administration of 118 ml Optiray. Coronal and sagittal MIPS were obtained from the axial data set and were submitted for review. All measurements were obtained according to NASCET criteria. A dose lowering technique was utilized adhering to the principles of ALARA. COMPARISON STUDY: None FINDINGS: There is no pulmonary consolidation, pleural effusion, or pneumothorax. No enlarged adenopathy. No pericardial effusion. There are coronary artery and aortic calcifications. There is moderate cardiomegaly with prominence of the pulmonary vasculature. Pulmonary veins are prominent. Right ventricle is prominent. There is no pulmonary embolism. No thoracic aortic dissection or aneurysm. There are mild diffuse thoracic spine degenerative changes. IMPRESSION: 1. No pulmonary embolism. 2. Findings suggesting pulmonary arterial hypertension. 3. No pneumonia or pleural effusion. ACT 112: Negative or not required by law. The above report was generated using voice recognition software. It may contain grammatical, syntax or spelling errors. Electronically signed by: Morales Miller M.D. 09/03/2024 2:17 PM Chest X-Ray 09/03/24 12:47 XR chest 1V portable CLINICAL HISTORY: Dyspnea COMPARISON STUDY: None FINDINGS: Heart size and pulmonary vasculature are normal. There are faint reticular opacities at the lateral mid and lower right lung. No effusion, consolidation, or pneumothorax otherwise. IMPRESSION: Possible early pneumonia on the right versus atelectasis or artifact. ACT 112: Negative or not required by law. Electronically signed by: Morales Miller M.D. 09/03/2024 1:57 PM Knee X-Ray 09/03/24 12:47 XR knee RT 3V CLINICAL HISTORY: R knee pain s/p fall COMPARISON: None FINDINGS: Right knee prosthesis shows no hardware complication. No fracture or dislocation. IMPRESSION: No fracture seen. ACT 112: Negative or not required by law. Electronically signed by: Morales Miller M.D. 09/03/2024 1:50 PM Pelvis X-Ray 09/03/24 12:47 XR pelvis 1-2V routine CLINICAL HISTORY: fall from standing COMPARISON: None FINDINGS: Sacroiliac joints and symphysis pubis are intact and there are no fractures within the pelvis or hips. A few clips project over the pelvis. There is moderate bilateral hip osteoarthritis. IMPRESSION: No fractures within the pelvis or hips. ACT 112: Negative or not required by law. Electronically signed by: Sixto Vasquez M.D. 09/03/2024 1:50 PM Chest X-Ray 09/04/24 09:15 XR chest 1V portable CLINICAL HISTORY: f/u chf COMPARISON STUDY: 09/03/2024 FINDINGS: Stable mild cardiomegaly without pulmonary vascular congestion. Stable faint reticular opacity lateral right midlung. No new consolidation or pleural effusion. No pneumothorax. IMPRESSION: Stable exam. ACT 112: Negative or not required by law. Electronically signed by: Morales Miller M.D. 09/04/2024 9:52 AM Abdomen Ultrasound 09/05/24 12:25 Clinical history: Elevated bilirubin Technique: Sonography was performed of the right upper quadrant of the abdomen Findings: There is an approximately 5.7 x 4.6 x 4.6 cm mass in the left hepatic lobe Multiple gallstones are present. The gallbladder wall is mildly thickened and edematous, measuring 4 mm. No definite sonographic Andrews sign was detected, though this could be due to pain medication. There is no intrahepatic or extrahepatic bile duct dilatation. The common bile duct measures 6 mm The right kidney appears unremarkable. There is no hydronephrosis. No definite renal calculus or mass is seen The visualized pancreas, aorta, and IVC appear unremarkable. No ascites is seen Impression: 1. Cholelithiasis with possible acute cholecystitis 2. 5.7 cm liver mass with an indeterminate appearance. Metastatic disease or primary liver malignancy is possible. A follow-up liver protocol abdominal MRI with and without intravenous contrast could be obtained Electronically signed by Noe Odom 09-05-2024 6:28 PM Abdomen MRI 09/06/24 00:27 EXAM: MR abdomen wo/w con CLINICAL HISTORY: 5.7cm liver mass, eval metastatic disease TECHNIQUE: Multiplanar, multisequence MR imaging was performed through the abdomen with and without IV contrast (10cc Eovist). COMPARISON: prior US dated 09/05/2024. FINDINGS: Liver: Normal size with a slightly nodular outline, with hypertrophied left hepatic lobe, suggests chronic parenchymal disease. A large left hepatic lobe partly inferiorly exophytic focal lesion occupying segments II and III, measuring 4.3 x 4.8 x 5.8 cm along maximum cross sections and CC diameters respectively. It shows moderate heterogeneous early post-contrast enhancement with delayed washout, elicited low T1, high STIR signal intensities. Multiple serpiginous portovenous collaterals are noted at the gastro-oesophageal junction. Gallbladder and Biliary System: Cholelithaisis. Intrahepatic and extrahepatic bile ducts are not dilated. Normal enhancement post-contrast. Pancreas: Normal size and contour. Homogeneous signal intensity on T1 and T2-weighted images. No masses or cystic lesions. Normal enhancement post-contrast. Spleen: Normal size and appearance. Homogeneous signal intensity. No focal lesions. Normal enhancement post-contrast. Adrenal Glands: Normal size and morphology bilaterally. No adrenal masses. Normal enhancement post-contrast. Kidneys and Ureters: Normal size, shape, and position of both kidneys. Homogeneous signal intensity on T1 and T2-weighted images. Bilateral small few renal cortical cysts, measuring the largest measure 1.1 cm on the left side (BOSNIAK I). No renal stones, masses, or hydronephrosis. Ureters are unremarkable. Normal enhancement post-contrast. Bowel: A small hiatus hernia. Normal appearance of the visualized bowel loops. No evidence of obstruction, wall thickening, or abnormal dilatation. No abnormal enhancement post-contrast. Vascular Structures: Abdominal aorta and its major branches are normal in caliber. No aneurysm or significant atherosclerosis. Normal enhancement post-contrast. Lymph Nodes: No pathologically enlarged lymph nodes in the abdomen. Peritoneum: No free fluid or free air in the abdomen. Bones: No lytic or sclerotic lesions. Soft Tissues: Normal appearance of the visualized soft tissues. IMPRESSION: 1. Hepatic chronic parenchymal disease, Likely cirrhotic. 2. Left hepatic exophytic focal lesion occupying segments II and III, measuring 4.3 x 4.8 x 5.8 cm. The enhancement pattern suggests hepatocellular carcinoma, rather than metastatic, correlation with AFP, and tissue biopsy is advised. 3. Multiple serpiginous portovenous collaterals are noted at the gastro-oesophageal junction, suggesting portal hypertension. 4. Cholelithiasis, with no acute cholecystitis. 5. Bilateral small few renal cortical cysts, measuring the largest measure 1.1 cm on the left side (BOSNIAK I). 6. A small hiatus hernia. 7. The MRI findings concur with the prior US findings. Electronically signed by Liz Fitzpatrick 09-06-2024 04:39 AM PG Care Time/CCT Total # of Minutes Spent Total Time Spent with Patient: Total time spent is greater than 50% in coordination of care (as documented) at patient's floor/unit and/or counseling patient: I spent 90 minutes overall addressing this case: 15 min in medical data review/discussion with referring provider(s) and/or preparation for the visit 15 min in direct interaction with the patient/exam 30 min in Advance Care Planning/Goals of Care discussions as detailed above in note (must be >16min) 15 min in subsequent review and synthesis of assessment and plan 15 min communicating with other providers regarding the patient's case: primary team, onc, nursing Advanced Care Planning 08271 Advanced Care Planning 30 [place] [address] IN/OBS CONSULT LVL 4,60M (25 - SIGNIFICANT, SEPARATELY IDENTIFIABLE ) Patient Type New Medical Decision Making High Complexity Diagnoses Nausea R11.0 Generalized weakness R53.1 Advanced care planning/counseling discussion Z71.89 Palliative care by specialist Z51.5 Liver mass R16.0 UTI (urinary tract infection) N39.0 Additional Codes Advanced Care Planning - 67921 Advanced Care Planning 30 Min: 81225 Advanced Care Planning 30 Min ([id number])
[2024-09-07 06:50] LABS: Hematocrit (blood only) 31.7 % (37.0-47.0); Hemoglobin 11.2 g/dl (12.0-16.0); Mean Corpuscular Hemoglobin 32.2 pg (25.0-34.0); Mean Corpuscular Hgb Conc 35.3 g/dL (32.0-36.0); Mean Corpuscular Volume 91.1 fL (80.0-100.0); Mean Platelet Volume 12.6 fL (9.4-12.4); Platelet Count 112 K/uL (130-400); RDW Coefficient of Variation 15.4 % (11.5-14.5); RDW Standard Deviation 50.5 fL (36.4-46.3); Red Blood Count 3.48 M/uL (4.20-5.40); White Blood Count 9.39 K/ul (4.8-10.8)
[2024-09-07 07:04] LABS: Albumin Level 2.2 gm/dl (3.4-5.0); BUN Creatinine Ratio 30.4 (10-20); Bilirubin Direct 0.6 mg/dl (0-0.2); Bilirubin,Total 1.2 mg/dl (0.2-1.0); Calcium 7.8 mg/dl (8.6-10.3); Creatinine Clr Calc Pharmacy 54.3 ml/min; Magnesium 1.8 mg/dl (1.7-2.4); Potassium 3.3 mmol/L (3.5-5.1)
[2024-09-07 07:19] LABS: Basophils # (auto) 0.12 K/uL (0.00-0.20); Basophils % (auto) 1.3 %; Eosinophils # (auto) 0.37 K/uL (0.00-0.50); Eosinophils % (auto) 3.9 %; Immature Granulocytes # (auto) 0.36 K/uL (0.01-0.20); Immature Granulocytes % (auto) 3.8 %; Lymphocytes % (auto) 23.4 %; Monocytes # (auto) 1.11 K/uL (0.11-0.59); Monocytes % (auto) 11.8 %; Neutrophils # (auto) 5.23 K/uL (1.40-6.50); Neutrophils % (auto) 55.8 %
[2024-09-07 07:29] LABS: INR 1.1 (0.9-1.1); Prothrombin Time 11.6 Seconds (9.0-12.0)
--- NOTE | 2024-09-07 08:25 | Hospitalist Progress Note ---
Date of Service September 07, 2024 Assessment & Plan (1) Liver mass: Plan: US Liver noted cholelithiasis with possible acute cholecystitis (again denied abdominal pain), HOWEVER also noted 5.7cm liver mass with indeterminate appearance. metastatic disease or primary liver malignancy possible Messaged GI regarding results, added AFP to AM labs and MRI liver protocol for further evaluation MRI abdomen obtained noting cirrhotic disease (alcohol use hx) however concerns for HCC vs metastatic disease * Left hepatic exophytic focal lesion occupying segments II and III, measuring 4.3 x 4.8 x 5.8 cm. The enhancement pattern suggests hepatocellular carcinoma, rather than metastatic, correlation with AFP, and tissue biopsy is advised. " * Also noted cholelithiasis without acute burton. * Portal HTN noted AFP pending- f/u Heme/oncology consult placed, palliative saw 09/06 as well Plan for IR biopsy on MONDAY, f/u oncology [place] Updated son Adis via phone 09/07, will be in w/ to visit this afternoon (2) Melena: Plan: Reported 09/04- 09/05, 3 melena BM. Fecal occult positive. GI consulted and PPI changed to IV BID, I added/continues on carafate. Hx gastric ulcer/perf and recent aleve PM use Avoid NSAIDs Remains on PPI, carafate, 1 darker BM but cognos bi administrator than prior. Lovenox on hold. If improvement/no further can convert PPI to PO as req by patient. Hgb 11.2, monitor for any worsened bleeding. CBC in AM (3) Acute hypoxemic respiratory failure: Plan: presented w/ 4 days chills/rigors/SOB and dysuria on admission concerns for new onset CHF/possible RI. ECHO noted w/ elevated RSVP and dilated R ventricle suspicious for underlying lung disease. No smoking hx/exposure. CTA NEGATIVE for PE, notes PAH Mag replacement/normalized on repeat. Lasix IV on admission, deferred ongoing but given 40mg IV x 1 on 09/05 and continued 20mg IV for 09/06 and now on 20mg PO daily and remains on room air. PPI/carafate for above. . Continue IS. Monitor for additional diuretics as needed (could consider spironolactone given cirrhotic appearance on abdominal imaging). Pulm consulted/plans for outpt PFTs Ceftriaxone/Azithro initially, azithro discontinued and ceftriaxone continued for UTI/GI coverage On Room air but can plan for 2step prior to dc (4) UTI (urinary tract infection): Plan: Urine cx ecoli Ceftriaxone IV continued, plan 7 day course unless dc prior but coverage for abd as well/GI/cirrhosis w/ bleeding and will remain on IV inpatient at this time. F/u blood cx. WBC has normalized (5) Hyponatremia: Plan: suspect acute on chronic, sertraline/xanax use at baseline but also w/ cirrhosis appearnace of liver and mass as above. TSH wnl, cortisol level acceptable. Na <10. Na stable 133 w/ ongoing lasix use as above. Monitor (6) Non-ST elevation RI (NSTEMI): Plan: Patient has no chest pain on admission however she did report she has had chest pressure lasting 1 to 2 minutes twice in the prior 4 days. Noted had "freezing chills "when this happened suspicious for rigors. Denies sweating or worsened dyspnea during these episodes suspected demand ischemia from infection/bacteremia above. No CP reported. SOB as outlined above, no significant SOB at present but had been on 3-4L NC AM 09/04, now on room air ECHO w/o wma, cardiology consulted and does not feel cardiac etiology in nature See above (7) Elevated brain natriuretic peptide (BNP) level: Plan: noted, nonspecific no significant LE edema, CXR w/o significant pulmonary edema, defer ongoing diuretic use, especially w/ hypotension per pulm, lasix 20mg IV daily and has been provided but changed to 20mg PO daily per Dr Jiang for 09/07 (8) Moderate pulmonary hypertension: Plan: ?underlying ELISE vs lung disease supplemental O2 as needed to maintain sats, now on room air Pulm consulted, appreciate assistance/recs --> lasix converted to 20mg po daily will need outpt PFT testing (9) Hypomagnesemia: Plan: replaced/resolved but given PPI, started mag oxide and will monitor in AM (10) Acute hypokalemia: Plan: suspect 2nd to lasix use, additional PO kcl replacement ordered for this morning (scheduled 20meq PO daily) and will monitor in AM. Mag wnl on check today/started PO (11) Right ventricular dilation: Plan: noted, ?underlying lung disease, ?2nd to portal HTN from cirrhosis/liver mass CTA chest negative for PE diuretics as above (12) Moderate tricuspid regurgitation: (13) Demand ischemia: Plan: Troponin is elevatedAt 567, downtrended 529. Suspect demand in the setting of acute infection; however given chest pain and acute rapid worsening shortness of breath and downtrending troponin a recent ischemic event was within differential ECHO w/o wma, no CP reported. Cards consulted -- see note, does not suspect cardiac etiology/likely underlying lung disease (14) Bacteremia: Plan: met sepsis criteria on admission w/ leukocytosis/tachypnea, elevated procal, +UA/cx. 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 No other sources identified. ID felt contaminant and will f/u final cx from 09/04 and reach back to ID if needed Remains on Ceftriaxone IV as above and WBC normalized on AM labs Plan Code status: DNR/DNI DVT prophylaxis: Lovenox SQ placed on HOLD given reported melena and now on PPI/carafate as above. SCDs ordered and nursing to encourage use when in bed. Dispo: continued inpatient stay, Ceftriaxone IV continued x 7 day course planned. Plan for IR biopsy on Monday, heme/onc follow up Continue PT/OT, CM to follow Gage Arceo updated via phone 09/07 Admission and Anticipated Discharge Date Admission Date: September 03, 2024 Supervising Physician Co-Signing Physician Notes The patient was not seen by me. The chart was reviewed. Case discussed with NITIN Lentz. Agree with assessment and plan Subjective Eval this morning, sitting up in recliner chair eating applesauce, looks well. Initially told me she didn't like to see me because I usually bring bad news, but discussed labs look better/white count normalized and kidney function stable on diuretics. Liver testing w/ improvement in TB. Remains on IV abx. +BM, "darker than should be but not as dark as it was". No abd pain. Continues on current plan as discussed prior, plan for biopsy on monday. Reports feeling better, no CP/SOB, 92% on RA. Encouraged SCDs when in bed to prevent clots/ Questions/concerns addressed at this time. Will call gage Arceo w/ update this afternoon. Physical Exam 2 Physical Exam: General : 69yo chronically ill appearing female sitting up in recliner chair, eating applesauce, NAD, reports feeling better HEENT: head atraumatic, normocephalic, mmm, trachea midline Resp: diminished in the bases but no significant wheezing/rales, on room air 94$ CV: RRR, no significant m/r/g, no pitting edema/calf tenderness GI: +BS, slight distension but NONTENDER, no guarding/rebound, no obvious mass appreciated : purewick MSK/Neuro: generalized fatigue but nonfocal, not confused/answering questions appropriately Psych: AOx3 Results & Data Results & Data Vital Signs (Past 12 Hours) Vital Signs Temp Pulse Pulse Resp BP Pulse Ox O2 Del Method 09/07/24 07:53 36.8 C 62 17 106/66 92 Room Air 09/07/24 07:35 63 09/07/24 03:27 36.7 C 65 14 104/66 91 Room Air 09/07/24 00:00 71 09/06/24 23:18 37.3 C 71 18 102/64 91 Room Air 09/06/24 20:55 Room Air Laboratory Results 09/07/24 05:57 09/07/24 05:57 Mag 1.8 TB 1.2 DB 0.6 AST 79 ALT 41 ALP 55 Ammonia 62 Albumin 2.2 PG Care Time/CCT Total # of Minutes Spent Total Time Spent with Patient: Total time spent is greater than 50% in coordination of care (as documented) at patient's floor/unit and/or counseling patient: Coding Level of Care Code 50418 SUB INP/OBS CARE 3/50MIN Diagnoses Liver mass R16.0 Melena K92.1 Acute hypoxemic respiratory failure J96.01 UTI (urinary tract infection) N39.0 Hyponatremia E87.1 Non-ST elevation RI (NSTEMI) I21.4 Elevated brain natriuretic peptide (BNP) level R79.89 Moderate pulmonary hypertension I27.20 Hypomagnesemia E83.42 Acute hypokalemia E87.6 Right ventricular dilation I51.7 Moderate tricuspid regurgitation I07.1 Demand ischemia I24.89 Bacteremia R78.81
[2024-09-07] MEDS: POTASSIUM CHLORIDE CRTAB 20 MEQ TABCR PO STA (09:25)
[2024-09-07] MEDS: MAGNESIUM OXIDE 400 MG TAB PO SCH (09:26)
[2024-09-07] MEDS: FUROSEMIDE 20 MG TAB PO SCH (09:26)
[2024-09-07 10:31] LABS: A calco-baum cmplx NotReported Not Detected (NotDetected); Bact fragilis Not Reported Not Detected (NotDetected); Blood Culture Id Panel PCR Panel Negative (NotDetected); C auris Not Reported Not Detected (NotDetected); Calbicans Not Reported Not Detected (NotDetected); Candida glabrata Not Reported Not Detected (NotDetected); Candida krusei Not Reported Not Detected (NotDetected); Cneoformans/gatti Not Reported Not Detected (NotDetected); Cparapsilosis Not Reported Not Detected (NotDetected); E cloacae compx Not Reported Not Detected (NotDetected); Efaecalis Not Reported Not Detected (NotDetected); Efaecium Not Reported Not Detected (NotDetected); Enterobacterales Not Reported Not Detected (NotDetected); Escherichia coli Not Reported Not Detected (NotDetected); H influenzae Not Reported Not Detected (NotDetected); K aerogenes Not Reported Not Detected (NotDetected); Koxytoca Not Reported Not Detected (NotDetected); Kpneumoniae grp Not Reported Not Detected (NotDetected); Lmonocyt Not Reported Not Detected (NotDetected); N meningitidis Not Reported Not Detected (NotDetected); P aeruginosa Not Reported Not Detected (NotDetected); Proteus spp Not Reported Not Detected (NotDetected); Salmonella spp Not Reported Not Detected (NotDetected); Staph lugdunensis Not Reported Not Detected (NotDetected); Staph spp. Not Reported Not Detected (NotDetected); Staphaureus Not Reported Not Detected (NotDetected); Staphepi Not Reported Not Detected (NotDetected); Stenmaltophilia Not Reported Not Detected (NotDetected); Strep agal(GrpB) Not Reported Not Detected (NotDetected); Strep pneum Not Reported Not Detected (NotDetected); Strep pyog (GrpA) Not Reported Not Detected (NotDetected); Strep spp Not Reported Not Detected (NotDetected)
[2024-09-08 05:13] LABS: Hematocrit (blood only) 29.8 % (37.0-47.0); Hemoglobin 10.3 g/dl (12.0-16.0); Mean Corpuscular Hemoglobin 31.9 pg (25.0-34.0); Mean Corpuscular Hgb Conc 34.6 g/dL (32.0-36.0); Mean Corpuscular Volume 92.3 fL (80.0-100.0); Mean Platelet Volume 12.3 fL (9.4-12.4); Platelet Count 121 K/uL (130-400); RDW Coefficient of Variation 15.4 % (11.5-14.5); Red Blood Count 3.23 M/uL (4.20-5.40); White Blood Count 10.84 K/ul (4.8-10.8)
[2024-09-08 05:29] LABS: Albumin Level 2.3 gm/dl (3.4-5.0); BUN Creatinine Ratio 32.5 (10-20); Bilirubin Direct 0.4 mg/dl (0-0.2); Bilirubin,Total 0.9 mg/dl (0.2-1.0); Calcium 7.7 mg/dl (8.6-10.3); Magnesium 1.8 mg/dl (1.7-2.4); Potassium 3.5 mmol/L (3.5-5.1); Total Protein 5.1 gm/dl (6.0-8.3)
--- NOTE | 2024-09-08 08:15 | Hospitalist Progress Note ---
Date of Service September 08, 2024 Assessment & Plan (1) Liver mass: Plan: US Liver noted cholelithiasis with possible acute cholecystitis (again denied abdominal pain), HOWEVER also noted 5.7cm liver mass with indeterminate appearance. metastatic disease or primary liver malignancy possible Messaged GI regarding results, added AFP to AM labs and MRI liver protocol for further evaluation MRI abdomen obtained noting cirrhotic disease (alcohol use hx) however concerns for HCC vs metastatic disease * Left hepatic exophytic focal lesion occupying segments II and III, measuring 4.3 x 4.8 x 5.8 cm. The enhancement pattern suggests hepatocellular carcinoma, rather than metastatic, correlation with AFP, and tissue biopsy is advised. " * Also noted cholelithiasis without acute burton. * Portal HTN noted 09/08 WBC slight elevation but afebrile. Remains on Ceftriaxone IV. Plts improved to 121. Continues on PPI BID/carafate, will convert PPI to PO Lasix 20mg PO daily had been continued but w/ early cirrhosis/hypokalemia issues will switch to spironolactone 12.5mg PO daily for today. Monitor for increase as tolerated, BUN/Cr 25/0.77 with ongoing lasix use despite darkened urine and suspect urine from bili. Mag 1.8 TB now 0.9, DB 0.4. AST elevated 95, ALT 53. Normal ALP 67 AFP pending Heme/oncology consult placed, palliative saw 09/06 as well Plan for IR biopsy on MONDAY, f/u oncology at [facility] Updated son Adis via phone 09/07, will call this afternoon/as needed (2) Melena: Plan: Reported 09/04- 2, 3 melena BM. Fecal occult positive. GI consulted and PPI changed to IV BID, carafate has been added. Hx gastric ulcer/perf and recent Aleve PM use. Avoid NSAIDs. Hgb 10.3 with repeated draws, 1 darker BM 09/07 but nothing reported overnight and PPI converted to PO BID, continues on carafate Monitor for any worsened bleeding/CBC (3) Acute hypoxemic respiratory failure: Plan: presented w/ 4 days chills/rigors/SOB and dysuria on admission concerns for new onset CHF/possible SC. ECHO noted w/ elevated RSVP and dilated R ventricle suspicious for underlying lung disease. No smoking hx/exposure. CTA NEGATIVE for PE, notes PAH Mag replacement/normalized on repeat. Lasix IV on admission, deferred ongoing but given 40mg IV x 1 on 09/05 and continued 20mg IV for 09/06 and now on 20mg PO daily and remains on room air. PPI/carafate for above. . Continue IS. Monitor for additional diuretics as needed (could consider spironolactone given cirrhotic appearance on abdominal imaging). Pulm consulted/plans for outpt PFTs Ceftriaxone/Azithro initially, azithro discontinued and ceftriaxone continued for UTI/GI coverage On Room air but can plan for 2step prior to dc (4) UTI (urinary tract infection): Plan: Urine cx ecoli Ceftriaxone IV continued, plan 7 day course unless dc prior but coverage for abd as well/GI/cirrhosis w/ bleeding and will remain on IV inpatient at this time. F/u blood cx. WBC had normalized but slight elevation today but afebrile and remains on IV abx (5) Hyponatremia: Plan: suspect acute on chronic, sertraline/xanax use at baseline but also w/ cirrhosis appearance of liver and mass as above. TSH wnl, cortisol level acceptable. Na <10. Na stable 132 w/ ongoing lasix use as above and switched to spironolactone/monitor BMP in AM (6) Non-ST elevation SC (NSTEMI): Plan: Patient has no chest pain on admission however she did report she has had chest pressure lasting 1 to 2 minutes twice in the prior 4 days. Noted had "freezing chills "when this happened suspicious for rigors. Denies sweating or worsened dyspnea during these episodes suspected demand ischemia from infection/bacteremia above. No CP reported. SOB as outlined above, no significant SOB at present but had been on 3-4L NC AM 09/04, now on room air ECHO w/o wma, cardiology consulted and does not feel cardiac etiology in nature See above (7) Elevated brain natriuretic peptide (BNP) level: Plan: noted, nonspecific no significant LE edema, CXR w/o significant pulmonary edema, defer ongoing diuretic use, especially w/ hypotension per pulm, lasix 20mg IV daily and converted to 20mg PO daily for 09/[address] Ames but switched to spironolactone as above/monitor for lasix as needed (8) Moderate pulmonary hypertension: Plan: ?underlying ELISE vs lung disease supplemental O2 as needed to maintain sats, now on room air Pulm consulted, appreciate assistance/recs -->diuretics as above will need outpt PFT testing (9) Hypomagnesemia: Plan: replaced/resolved but given PPI, started mag oxide and has been continued, mag 1.8 on AM labs and will monitor on PPI/increase if needed (10) Acute hypokalemia: Plan: suspect 2nd to lasix use, has been converted to spironolactone as above. Monitor to dc once daily 20meq PO Kcl (11) Right ventricular dilation: Plan: noted, ?underlying lung disease, ?2nd to portal HTN from cirrhosis/liver mass CTA chest negative for PE diuretics as above (12) Moderate tricuspid regurgitation: (13) Demand ischemia: Plan: Troponin is elevatedAt 567, downtrended 529. Suspect demand in the setting of acute infection; however given chest pain and acute rapid worsening shortness of breath and downtrending troponin a recent ischemic event was within differential ECHO w/o wma, no CP reported. Cards consulted -- see note, does not suspect cardiac etiology/likely underlying lung disease (14) Bacteremia: Plan: met sepsis criteria on admission w/ leukocytosis/tachypnea, elevated procal, +UA/cx. 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 No other sources identified. ID felt contaminant and will f/u final cx from 09/04 and reach back to ID if needed Remains on Ceftriaxone IV as above and WBC normalized on AM labs but slight elevation today/monitor Plan Code status: DNR/DNI DVT prophylaxis: Lovenox SQ held given melena/improving. SCDs ordered, no evidence for DVT but will monitor Dispo: continued inpatient stay, IR biopsy planned for AM. Continued PT/OT (has been improving w/ ambulation to bathroom today). PPI converted to PO BID, remains on carafate. Ceftriaxone IV continued and f/u blood cx. Son Adis updated 09/07 and can update as needed/will attempt to call this afternoon with update. Will need f/u heme/onc once biopsy back, AFP pending and will need f/u Admission and Anticipated Discharge Date Admission Date: September 03, 2024 Supervising Physician Co-Signing Physician Notes The patient was not seen by me. The chart was reviewed. Case discussed with NITIN Lentz. Agree with assessment and plan Subjective Eval this morning, ambulating to bathroom with walker to move her bowels. No abodminal pain, reports feeling well and "might not be here tomorrow" with regards to maybe not wanting the biopsy. Discussed should be quick, numbing to be provided and would allow treatment options in f/u with oncology. She reports she would do it if we continue to treat her like we have been , that she "likes being waited on, all the attention." Agreeable at end of encounter, does want her protonix to PO, will switch but discussed abx continue IV once daily. No CP/SOB, on room air, no abdominal pain. Renal function stable/improved and switched to spironolactone to prevent hypokalemia. Results & Data Results & Data Vital Signs (Past 12 Hours) Vital Signs Temp Pulse Pulse Resp BP Pulse Ox O2 Del Method 09/08/24 08:00 36.6 C 52 L 19 103/67 93 Room Air 09/08/24 03:41 36.5 C 59 L 18 96/60 L 93 Room Air 09/07/24 23:20 72 09/07/24 23:13 92 Nasal Cannula 09/07/24 23:08 37.0 C 69 18 100/54 L 87 L Room Air O2 Flow Rate 09/08/24 08:00 09/08/24 03:41 09/07/24 23:20 09/07/24 23:13 2 09/07/24 23:08 Laboratory Results 09/08/24 04:29 09/08/24 04:29 Mag 1.8 TB 0.9, DB 0.4 AST 95, ALT 53 ALP 67 Albumin 2.3 PG Care Time/CCT Total # of Minutes Spent Total Time Spent with Patient: Total time spent is greater than 50% in coordination of care (as documented) at patient's floor/unit and/or counseling patient: Coding Level of Care Code 63421 SUB INP/OBS CARE 3/50MIN Diagnoses Liver mass R16.0 Melena K92.1 Acute hypoxemic respiratory failure J96.01 UTI (urinary tract infection) N39.0 Hyponatremia E87.1 Non-ST elevation SC (NSTEMI) I21.4 Elevated brain natriuretic peptide (BNP) level R79.89 Moderate pulmonary hypertension I27.20 Hypomagnesemia E83.42 Acute hypokalemia E87.6 Right ventricular dilation I51.7 Moderate tricuspid regurgitation I07.1 Demand ischemia I24.89 Bacteremia R78.81
[2024-09-08] MEDS: SPIRONOLACTONE 12.5 MG TAB PO SCH (09:20)
[2024-09-08] MEDS: NYSTATIN SUSP 500,000 U/5 ML UDC PO STA (15:17)
[2024-09-08] MEDS: NYSTATIN SUSP 500,000 U/5 ML UDC PO SCH (17:51)
[2024-09-08] MEDS: ONDANSETRON INJ 2 MG/ML 2 ML VIAL IV PRN (20:47)
[2024-09-08 21:28] LABS: Hemoglobin 9.9 g/dl (12.0-16.0)
[2024-09-08] MEDS: PANTOprazole 40 MG TAB PO SCH (21:41)
[2024-09-09 07:30] LABS: Hematocrit (blood only) 23.5 % (37.0-47.0); Mean Corpuscular Hemoglobin 31.7 pg (25.0-34.0); Mean Corpuscular Volume 93.3 fL (80.0-100.0); Mean Platelet Volume 12.5 fL (9.4-12.4); Platelet Count 153 K/uL (130-400); RDW Coefficient of Variation 15.9 % (11.5-14.5); RDW Standard Deviation 51.6 fL (36.4-46.3); Red Blood Count 2.52 M/uL (4.20-5.40); White Blood Count 11.58 K/ul (4.8-10.8)
[2024-09-09 07:47] LABS: Albumin Level 2.1 gm/dl (3.4-5.0); BUN Creatinine Ratio 43.8 (10-20); Bilirubin Direct 0.4 mg/dl (0-0.2); Bilirubin,Total 0.9 mg/dl (0.2-1.0); Calcium 7.8 mg/dl (8.6-10.3); Creatinine Clr Calc Pharmacy 77.2 ml/min; Magnesium 1.8 mg/dl (1.7-2.4); Potassium 4.1 mmol/L (3.5-5.1); Total Protein 4.8 gm/dl (6.0-8.3)
[2024-09-09 08:23] LABS: AFP Tumor Marker Serum 1.3 ng/mL; Hepatitis A Antibody IgM NON-REACTIVE (NON-REACTIVE); Hepatitis B Core Antibody IgM NON-REACTIVE (NON-REACTIVE)
--- NOTE | 2024-09-09 08:38 | Hospitalist Progress Note ---
Date of Service September 09, 2024 Assessment & Plan (1) Hematemesis: Plan: drop in hgb overnight to 8.0 w/ reported hematemesis with clots. 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 Prior on PPI IV BID, was converted to PO BID last evening per patient request and brown BM following Repeat hgb ordered, message to GI sent. Placed on protonix gtt GI added octreotide gtt, clear liquid diet, NPO at midnight for EGD in AM. Repeat hgb to 7.8, monitoring on repeat since start octreotide/protonix gtt but also obtained blood consent for possible transfusion pending repeat level (has received blood in past without issue) Type/screen and cross 1 unit, likely transfusion. Will continue to monitor blood counts. Plts low but stable/improved Remains on Ceftriaxone IV, continue daily Spironolactone placed on hold Avoid chemoproph, SCDs continued. Prior Lovenox earlier in the stay discontinued. EGD in AM IR liver biopsy post-poned for now, at least til tomorrow but likely til Monday Updated son Adis via phone this morning. (2) Liver mass: Plan: US Liver noted cholelithiasis with possible acute cholecystitis (denied abdominal pain), HOWEVER also noted 5.7cm liver mass with indeterminate appearance. metastatic disease or primary liver malignancy possible Messaged GI regarding results, added AFP to AM labs and MRI liver protocol for further evaluation MRI abdomen ordered for further eval, noting cirrhotic disease (alcohol use hx) however concerns for HCC vs metastatic disease * Left hepatic exophytic focal lesion occupying segments II and III, measuring 4.3 x 4.8 x 5.8 cm. The enhancement pattern suggests hepatocellular carcinoma, rather than metastatic, correlation with AFP, and tissue biopsy is advised." * Also noted cholelithiasis without acute burton. * Portal HTN noted Heme/onc consulted, discussed w/ family/palliative last week and rec for IR biopsy. Planned for today however see above and has been postponed for now. LFTs trending down, monitor AFP pending, will need f/u (3) Melena: Plan: Reported 2/5 overnight, +fecal occult and placed on PPI IV BID/GI consulted. Hx gastric ulcer/perf in past and recent NSAID use -- see #1, now back on protonix but gtt/octreotide gtt given cirrhosis/concerns possible varicies given portal HTN noted on prior imaging. Continue carafate QID PRBC as above, Clear liquid diet, NPO at midnight for EGD in AM (4) Acute hypoxemic respiratory failure: Plan: initial presentation concerns w/ reports fever/chills, SOB/dysuria on admission w/ new onset CHF/possible ID. ECHO w/ elevated RVSP w/ dilated R ventricle suspicious for underlying lung disease. CT chest negative for PE Diuretics w/ lasix IV initially, switched to spironolactone given cirrhosis 12.5mg po daily given improvement in BUN/Cr however placed on hold given concerns for bleeding above. Remains on Ceftriaxone, prior azithro discontinued On room air, no SOB reported (5) UTI (urinary tract infection): Plan: Urine cx ecoli and placed on Ceftriaxone which has been continued as above and plan for 7 day course. Continuation pending EGD if mucosal compromise/variceal bleeding possible (6) Hyponatremia: Plan: suspect multifactorial, see above. TSH wnl, cortisol level not low. Stable compared to priors and will monitor. (7) Non-ST elevation ID (NSTEMI): Plan: ECHO w/o wma, cardiology consulted and did not feel cardiac in nature. Suspected demand ischemia from infection/above (8) Elevated brain natriuretic peptide (BNP) level: Plan: noted, nonspecific -no significant LE edema, CXR w/o significant pulmonary edema, defer ongoing diuretic use, especially w/ hypotension per pulm, lasix 20mg IV daily and converted to 20mg PO daily for [address] Ames but switched to spironolactone as above/monitor for lasix as needed and now on hold. Does not appear volume overloaded at this time (9) Moderate pulmonary hypertension: Plan: ?underlying ELISE vs lung disease supplemental O2 as needed to maintain sats, now on room air Pulm consulted, appreciate assistance/recs -->diuretics as above will need outpt PFT testing (10) Hypomagnesemia: Plan: replaced/resolved but given PPI, started mag oxide and has been continued, mag 1.8 on AM labs and will monitor on PPI/increase if needed (11) Acute hypokalemia: Plan: suspect 2nd to lasix use, has been converted to spironolactone as above and K 4.1 on am labs. PO kcl placed on hold/spironolactone held for AM given above and will monitor BMP (12) Right ventricular dilation: Plan: CTA neg for PE (13) Moderate tricuspid regurgitation: (14) Demand ischemia: Plan: as above (15) Bacteremia: Plan: met sepsis criteria on admission w/ leukocytosis/tachypnea, elevated procal, +UA/cx. 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 No other sources identified. ID felt contaminant and will f/u final cx from 09/04 and reach back to ID if needed Remains on Ceftriaxone IV as above and WBC normalized on AM labs but slight elevation today/monitor Plan Code status: DNR/DNI DVT prophylaxis:no chemo proph given concerns for GIB as above, SCDs ordered. No LE edema/DVT on exam Dispo: continued inpatient stay, protonix/octreotide gtt and PRBC as outlined and NPO at midnight for EGD. Ceftriaxone IV continued. WIll need IR biopsy liver either following or more likely Monday as discussed/updated sammie Arceo via phone 09/09 Continue PT/OT, possible/likely need for rehab at [place] but is ambulating pretty well and CM to f/u Admission and Anticipated Discharge Date Admission Date: September 03, 2024 Supervising Physician Co-Signing Physician Notes The patient was not seen by me. The chart was reviewed. Case discussed with NITIN Lentz. Agree with assessment and plan Subjective Eval this morning, resting in bed. just finished eating breakfast, no abdominal pain/nausea this morning but discussed hgb. per nursing and patient did have episode of vomiting last evening with blood and clots, similar to when had GI ulcer/perf in past. No abd pain and prior bm last evening brown in color but some melena report by nursing this morning and converted Protonix BID to gtt. Plan for biopsy this afternoon pending course. No CP/SOB/lightheaded/dizziness, 94% on RA. Physical Exam 2 Physical Exam: General : 69yo chronically ill appearing female (improved on exam), sitting up in chair, NAD, eating breakfast, reported vomiting w/ blood last evening, general pallor HEENT: head atraumatic, normocephalic, mmm, trachea midline Resp: diminished in the bases but no significant wheezing/rales, on room air CV: RRR, no significant m/r/g, no pitting edema/calf tenderness GI: +BS, slight distension but NONTENDER, no guarding/rebound, no obvious mass appreciated : purewick MSK/Neuro: generalized fatigue but nonfocal, not confused/answering questions appropriately Psych: AOx3 Results & Data Results & Data Vital Signs (Past 12 Hours) Vital Signs Temp Pulse Pulse Resp BP Pulse Ox O2 Del Method 09/09/24 07:31 36.5 C 64 16 106/67 94 Room Air 09/09/24 03:49 36.3 C L 64 18 88/55 L 93 Room Air 09/08/24 23:47 36.9 C 73 18 100/61 90 Room Air 09/08/24 22:59 73 Laboratory Results 09/09/24 10:32 09/09/24 07:03 TB 0.4, DB 0.4. AST 51, ALT 37, ALP 50 Mag 1.8 PG Care Time/CCT Total # of Minutes Spent Total Time Spent with Patient: Total time spent is greater than 50% in coordination of care (as documented) at patient's floor/unit and/or counseling patient: Coding Level of Care Code 91850 SUB INP/OBS CARE 3/50MIN Diagnoses Hematemesis K92.0 Liver mass R16.0 Melena K92.1 Acute hypoxemic respiratory failure J96.01 UTI (urinary tract infection) N39.0 Hyponatremia E87.1 Non-ST elevation ID (NSTEMI) I21.4 Elevated brain natriuretic peptide (BNP) level R79.89 Moderate pulmonary hypertension I27.20 Hypomagnesemia E83.42 Acute hypokalemia E87.6 Right ventricular dilation I51.7 Moderate tricuspid regurgitation I07.1 Demand ischemia I24.89 Bacteremia R78.81
[2024-09-09] MEDS ORDERED: PANTOPRAZOLE BOLUS/DRIP IV STA (08:50)
[2024-09-09] MEDS: PANTOprazole 80 MG in DEXTROSE 5% 100 ML IV ONE (09:43)
--- NOTE | 2024-09-09 09:55 | Gastroenterology Progress Note ---
Date of Service September 09, 2024 Assessment & Plan (1) Hematemesis: Plan: -IV Protonix gtt; Will add Octreotide gtt as well -Continue to monitor H/H and monitor for overt GI bleeding -Unfortunately patient ate breakfast this morning; Would plan to keep NPO after midnight and pursue EGD on 09/10/24 Admission and Anticipated Discharge Date Admission Date: September 03, 2024 Supervising Physician Co-Signing Physician Notes Patient with reports of hematemesis with clots overnight. Some red stools today. Hemoglobin on repeat is 9. Patient states she had further emesis that was predominantly yellow and this was confirmed by her nurse. Stools only a small amount of blood. There is past history of peptic ulcer disease. Patient also has cirrhosis of varices or portal gastropathy on the differential. Endoscopy today not possible as the patient ate a full breakfast. She is now on clears. EGD tomorrow. In regards to the mass in her liver. On a background of cirrhosis and its appearance this is most likely hepatoma. This may not require biopsy. If her alpha-fetoprotein is elevated I would suggest that liver biopsy not required. To make the diagnosis. There is the potential to seed the biopsy site. Alpha-fetoprotein is pending. Plan EGD tomorrow. Continue octreotide and PPI at present. Subjective Patient is a 69 yo female with recent findings of likely HCC. Over the weekend she notes that she developed a feeling of nausea. She notes that she had an episode of pink-tinged emesis. She then had a bright red stool. No heartburn or abdominal pain at present. H/H 8.0/23.5. BUN 32. Though normal at present, platelets did dip over the we ekend. Unfortunately patient ate a full breakfast. Review of Systems Gastrointestinal: + hematemesis and + blood in stools; no abdominal pain Physical Exam Gastrointestinal (Abdomen): normal bowel sounds, soft, nontender, no hepatosplenomegaly Results & Data Results & Data Vital Signs (Past 12 Hours) Vital Signs Temp Pulse Pulse Resp BP Pulse Ox O2 Del Method 09/09/24 08:00 64 09/09/24 08:00 Room Air 09/09/24 07:31 36.5 C 64 16 106/67 94 Room Air 09/09/24 03:49 36.3 C L 64 18 88/55 L 93 Room Air 09/08/24 23:47 36.9 C 73 18 100/61 90 Room Air 09/08/24 22:59 73 PG Care Time/CCT Total # of Minutes Spent Total Time Spent with Patient: Total time spent is greater than 50% in coordination of care (as documented) at patient's floor/unit and/or counseling patient: Coding Level of Care Code 61805 SUB INP/OBS CARE 3/50MIN Diagnoses Hematemesis K92.0
[2024-09-09] MEDS: PANTOprazole 40 MG in DEXTROSE 5% MINI-B 100 ML IV SCH (10:06)
[2024-09-09] MEDS ORDERED: STAT IV/IM STA (10:50)
[2024-09-09 10:51] LABS: Hematocrit (blood only) 23.2 % (37.0-47.0); Hemoglobin 7.8 g/dl (12.0-16.0)
[2024-09-09] MEDS ORDERED: OCTREOTIDE ACETATE 100 MCG/ML VIAL SQ SCH (11:00)
[2024-09-09] MEDS: OCTREOTIDE ACETATE 100 MCG/ML VIAL SQ STA (11:16)
[2024-09-09] MEDS: OCTREOTIDE ACETATE 500 MCG in SODIUM CHLORIDE 0.9% 100 ML IV SCH (11:17)
[2024-09-09] MEDS ORDERED: SODIUM CHLORIDE 0.9% 50 ML IV PRN ×2 (12:18→20:52)
[2024-09-09] MEDS ORDERED: SODIUM CHLORIDE 0.9% 100 ML IV PRN ×2 (12:18→20:52)
--- NOTE | 2024-09-09 12:46 | Anesthesiology Consultation ---
Date of Service September 09, 2024 Assessment & Plan (1) Encounter for pre-operative examination: Chart Review Chart Review: Acceptable Risk for Surgery, Patient NOT seen in Pre Admission Testing and data entry initiated Consults Requested none Proposed Anesthesia Anesthesia Type: MAC History Surgery Operation Date: 09/10/24 16:30 Proposed Procedures p Esophagogastroduodenoscopy Dr. Reagan Kirk MD Height/Weight Height: 5 ft 5 in Weight: 87.4 kg Allergies Allergy/AdvReac Type Severity Reaction Status Date / Time No Known Allergies Allergy Unverified 09/03/24 14:39 Medications Home Medications Medication Instructions Recorded Confirmed Last Taken alprazolam 0.5 mg tablet 0.5 mg PO DAILY 09/03/24 09/03/24 Unknown levothyroxine 112 mcg tablet 112 mcg PO DAILY 09/03/24 09/03/24 Unknown multivitamin 1 tab PO DAILY 09/03/24 09/03/24 Unknown potassium 1 tab PO DAILY 09/03/24 09/03/24 Unknown propranolol 20 mg tablet 20 mg PO BID 09/03/24 09/03/24 Unknown sertraline 50 mg tablet 50 mg PO DAILY 09/03/24 09/03/24 Unknown Active Medications Generic Name Dose Route Start Last Admin Trade Name Freq PRN Reason Stop Dose Admin Acetaminophen 650 mg 09/03/24 18:06 09/08/24 22:48 Acetaminophen 325 Mg Tab PO 10/03/24 18:05 650 mg Q4H PRN Administration Pain or Fever Alprazolam 0.5 mg 09/03/24 21:00 09/08/24 21:41 Alprazolam 0.5 Mg Tablet PO 10/03/24 20:59 0.5 mg HS PREMA Administration Ceftriaxone Sodium 2,000 mg in 50 mls @ 100 mls/hr 09/04/24 16:30 09/08/24 20:19 Rocephin IV 09/14/24 16:29 Infused Q24H PREMA Infusion Protocol Pantoprazole Sodium 40 mg/ 100 mls @ 20 mls/hr 09/09/24 09:15 09/09/24 10:06 Dextrose IV 10/09/24 09:14 8 mg/hr Q5H PREMA 20 mls/hr Administration 8 MG/HR Octreotide Acetate 500 mcg/ 100.5 mls @ 10.05 mls/hr 09/09/24 11:00 09/09/24 11:17 Sodium Chloride IV 10/09/24 10:59 50 mcg/hr .Q10H PREMA 10.1 mls/hr Administration 50 MCG/HR Levothyroxine Sodium 112 mcg 09/04/24 06:30 09/09/24 05:44 Levothyroxine Sodium 112 Mcg Tablet PO 10/04/24 06:29 112 mcg DAILYBB PREMA Administration Magnesium Oxide 400 mg 09/07/24 09:00 09/09/24 07:55 Magnesium Oxide 400 Mg Tab PO 10/07/24 08:59 400 mg BID PREMA Administration Multivitamins 1 tab 09/04/24 09:00 09/09/24 07:55 Multivitamin Tab PO 10/04/24 08:59 1 tab DAILY PREMA Administration Nystatin 5 ml 09/08/24 17:00 09/09/24 12:30 Nystatin Susp 500,000 U/5 Ml Udc PO 09/18/24 16:59 5 ml QID PREMA Administration Ondansetron HCl 4 mg 09/06/24 18:33 09/09/24 11:42 Ondansetron Inj 2 Mg/Ml 2 Ml Vial IV 10/06/24 18:32 4 mg Q6H PRN Administration Nausea And Vomiting Propranolol HCl 20 mg 09/03/24 21:00 09/09/24 07:54 Propranolol Hcl 20 Mg Tab PO 10/03/24 20:59 20 mg BID PREMA Administration Sertraline HCl 50 mg 09/04/24 09:00 09/09/24 07:55 Sertraline Hcl 50 Mg Tablet PO 10/04/24 08:59 50 mg DAILY PREMA Administration Spironolactone 12.5 mg 09/08/24 09:00 09/09/24 07:54 Spironolactone 12.5 Mg Tab PO 10/08/24 08:59 12.5 mg DAILY PREMA Administration Sucralfate 1 gm 09/05/24 17:00 09/09/24 12:30 Sucralfate 1 Gm/10 Ml Udc PO 10/05/24 16:59 1 gm QID PREMA Administration Social History Smoking Status: Unknown if ever smoked Hx Alcohol Use: No Hx Substance Use: No Physical Exam Vital Signs Last Vital Signs Temp 36.6 C 09/09/24 12:12 Pulse 59 L 09/09/24 12:12 Resp 20 02/10/25 12:12 BP 128/77 09/09/24 12:12 Pulse Ox 90 09/09/24 12:12 O2 Del Method Room Air 09/09/24 12:12 O2 Flow Rate 2 09/07/24 23:13 Testing Laboratory Results 09/09/24 10:32 09/09/24 07:03 PT 11.6 Seconds (9.0-12.0) 09/07/24 05:57 INR 1.1 (0.9-1.1) 09/07/24 05:57 Urine Color Dark Yellow 09/03/24 16:48 Urine Appearance Cloudy (Clear) A 09/03/24 16:48 Urine pH 7.5 (4.5-7.5) 09/03/24 16:48 Ur Specific [place] 1.042 (1.000-1.030) H 09/03/24 16:48 Urine Protein Trace (Negative) H 09/03/24 16:48 Urine Glucose (UA) Negative (Negative) 09/03/24 16:48 Urine Ketones Trace (Negative) H 09/03/24 16:48 Urine Nitrite Negative (Negative) 09/03/24 16:48 Ur Leukocyte Esterase 3+ (Negative) H 09/03/24 16:48 Urine WBC (Auto) >50 /hpf (0-5) H 09/03/24 16:48 Urine RBC (Auto) >20 /hpf (0-2) H 09/03/24 16:48 U Hyaline Cast (Auto) 0-2 /lpf (0-2) 09/03/24 16:48 U Epithel Cells (Auto) 0-2 /hpf (0-2) 09/03/24 16:48 Urine Bacteria (Auto) 4+ (None Seen) H 09/03/24 16:48 09/04/24 19:20 Aerobic Blood Culture - Final Blood Janibacter hoylei Anaerobic Blood Culture - Final 09/03/24 17:09 Aerobic Blood Culture - Preliminary Blood Staphylococcus epidermidis Anaerobic Blood Culture - Final No growth in Anaerobic bottle after 5 days. 09/04/24 19:19 Aerobic Blood Culture - Preliminary Blood No growth in Aerobic bottle after 48 hours. Anaerobic Blood Culture - Final 09/03/24 17:09 Aerobic Blood Culture - Final Blood Staphylococcus epidermidis Anaerobic Blood Culture - Final Staphylococcus epidermidis 09/03/24 16:48 Urine Culture - Final Urine,Clean Catch Escherichia coli Electrocardiogram Date: 09/03/24 Findings: + NSR @ and + RBBB (Incomplete) Prolonged QT interval Chest X-Ray Date: 09/03/24 XR chest 1V portable CLINICAL HISTORY: f/u chf COMPARISON STUDY: 09/03/2024 FINDINGS: Stable mild cardiomegaly without pulmonary vascular congestion. Stable faint reticular opacity lateral right midlung. No new consolidation or pleural effusion. No pneumothorax. IMPRESSION: Stable exam. Echocardiogram Date: 09/04/24 EF: 65-70% LV Function: normal RWMA: + none Other Findings: + RVH, + diastolic dysfunction (Grade I) and + pertinent finding (R ventricular systolic fxn mod reduced; RV pressure 40-50 mmHg) Valvular Disease: + pertinent finding (mild - mod TR) Inf vena cave mod dilated
[2024-09-09 13:12] LABS: Hematocrit (blood only) 27.2 % (37.0-47.0); Hemoglobin 9.1 g/dl (12.0-16.0); Mean Corpuscular Hgb Conc 33.5 g/dL (32.0-36.0); Mean Corpuscular Volume 95.8 fL (80.0-100.0); Mean Platelet Volume 12.2 fL (9.4-12.4); Platelet Count 195 K/uL (130-400); RDW Coefficient of Variation 16.5 % (11.5-14.5); Red Blood Count 2.84 M/uL (4.20-5.40)
[2024-09-09 19:53] LABS: Babesia microti DNA Not Detected (Not Detected)
[2024-09-09 20:40] LABS: Hematocrit (blood only) 21.9 % (37.0-47.0); Hemoglobin 7.6 g/dl (12.0-16.0)
[2024-09-10 06:00] LABS: Basophils # (auto) 0.07 K/uL (0.00-0.20); Basophils % (auto) 0.7 %; Eosinophils # (auto) 0.36 K/uL (0.00-0.50); Eosinophils % (auto) 3.7 %; Hematocrit (blood only) 26.1 % (37.0-47.0); Immature Granulocytes # (auto) 0.49 K/uL (0.01-0.20); Lymphocytes # (auto) 2.31 K/uL (1.20-3.40); Lymphocytes % (auto) 23.5 %; Mean Corpuscular Hemoglobin 31.7 pg (25.0-34.0); Mean Corpuscular Hgb Conc 34.5 g/dL (32.0-36.0); Mean Corpuscular Volume 91.9 fL (80.0-100.0); Mean Platelet Volume 11.9 fL (9.4-12.4); Monocytes # (auto) 0.75 K/uL (0.11-0.59); Monocytes % (auto) 7.6 %; Neutrophils # (auto) 5.83 K/uL (1.40-6.50); Neutrophils % (auto) 59.5 %; Platelet Count 165 K/uL (130-400); RDW Coefficient of Variation 18.6 % (11.5-14.5); RDW Standard Deviation 58.1 fL (36.4-46.3); Red Blood Count 2.84 M/uL (4.20-5.40); White Blood Count 9.81 K/ul (4.8-10.8)
[2024-09-10 06:17] LABS: Albumin Globulin Ratio 0.8 (0.9-2); Albumin Level 2.3 gm/dl (3.4-5.0); Bilirubin,Total 1.3 mg/dl (0.2-1.0); Calcium 7.7 mg/dl (8.6-10.3); Creatinine Clr Calc Pharmacy 60.9 ml/min; Globulin 2.9 gm/dl (2.5-4.0); Magnesium 1.9 mg/dl (1.7-2.4); Potassium 4.2 mmol/L (3.5-5.1); Total Protein 5.2 gm/dl (6.0-8.3)
--- NOTE | 2024-09-10 08:13 | XRay Report ---
EXAM: XR chest 1V portable CLINICAL HISTORY: f/u, pre-EGD TECHNIQUE: An X-ray image of the chest is obtained in AP projection. COMPARISON: Prior study dated 09/04/2024. FINDINGS: Pulmonary Parenchyma: New right lower lung zone ill defined patchy ground glass appearance seen Background of prominent broncho vascular markings and jeanne bilaterally No evidence of pleural effusion or pleural thickening. Heart and Mediastinum: Apparent cardiomegaly No mediastinal widening or masses. No hilar or mediastinal lymphadenopathy. Bony Thorax: Bony thorax appears intact without fractures or deformities. Soft Tissues: Soft tissues overlying the chest wall are unremarkable. IMPRESSION: 1. New right lower lung zone ill-defined patchy ground glass appearance seen, could be infectious advised for clinical correlation 2. Background of prominent broncho vascular markings and jeanne bilaterally (stable) 3. Apparent cardiomegaly (stable) Electronically signed by Liz Fitzpatrick 09-10-2024 08:13 AM
--- NOTE | 2024-09-10 08:55 | History & Physical Bridge Note ---
Date of Service September 10, 2024 History & Physical Bridge Note I have examined the patient, reviewed the History & Physical and in the interval since the performance of the History & Physical I have noted the following changes of clinical significance: Patient's H/H dropped overnight and she was given 1 unit PRBCs. H/H 9.0/26.1. She denies further hematemesis or bloody stool overnight. Continue IV ppi therapy and Octreotide. Keep NPO for EGD today.
--- NOTE | 2024-09-10 14:00 | Communication Note ---
Date of Service: September 10, 2024 Brief Pall Med Note no acute issues EGD today with biopsy planned, remains NPO IADLs and ambulating well around the room and nursing unit Offers no new complaints Nausea not an issue for now Anxious to get biopsy done and "get some information so we can have a plan." No changes today. TS 35 min Thank you for allowing us to participate in the ongoing care of this patient. Please page with any additional concerns. Frank Martins DNP Director, Palliative Medicine
--- NOTE | 2024-09-10 15:37 | Communication Note ---
Date of Service: September 10, 2024 EGD Distal esophageal stricture. Not dilated in this patient with gastrointestinal bleeding. Blood in the fundus. Deformity in the antrum related to previous peptic ulcer disease. 2 duodenal ulcers. Small 5 to 6 mm cratered ulcer in the postbulbar area with visible vessel actively oozing. Injected 1 in 10,000 epinephrine gold probe coagulation with hemostasis. Biopsies done in the antrum for H. pylori. Continue IV PPI drip. Can stop octreotide. Patient should be careful with meats with her significant esophageal stricture. Cut a small chew it well. Might benefit from a esophageal dilatation once the acute issues have resolved.
--- NOTE | 2024-09-10 15:44 | GI REPORT ---
[facility] Patient: HEMA VILLA : 1955 Sex at : Female Age: 69 Years Procedure: Upper GI endoscopy Date: 09/10/2024 Attending Physician: Otto Kirk MD Referring MD: Marisabel Carlson Md Indications: - Suspected upper gastrointestinal bleeding Medications: - Monitored Anesthesia Care Complications: - No immediate complications. Estimated Blood Loss: - Estimated blood loss was minimal. Procedure: - The egd scope was introduced through the mouth and advanced to the second part of the duodenum. - The upper GI endoscopy was accomplished without difficulty. - The patient tolerated the procedure well. Findings: - One benign-appearing, intrinsic moderate stenosis was found in the distal esophagus. The stenosis was traversed. - Red blood was found in the gastric fundus. - A deformity was found in the prepyloric region of the stomach. - One non-bleeding cratered duodenal ulcer with no stigmata of bleeding was found in the duodenal bulb. The lesion was 12 mm in largest dimension. - One oozing cratered postbulbar duodenal ulcer with a visible vessel was found. The lesion was 7 mm in largest dimension. Area was successfully injected with 3 mL of a 0.1 mg/mL solution of epinephrine for hemostasis. Coagulation for hemostasis using bipolar probe was successful. - Biopsies done in the antrum for H. pylori in this patient with 2 duodenal ulcers. Impression: - Benign-appearing esophageal stenosis. - Red blood in the gastric fundus. - Acquired deformity in the prepyloric region of the stomach. - Non-bleeding duodenal ulcer with no stigmata of bleeding. - Oozing postbulbar duodenal ulcer with a visible vessel. Injected 1 in 10,000 epinephrine x 3 mL. Treated with bipolar cautery. - Biopsies done in the antrum for H. pylori in this patient with 2 duodenal ulcers. - No specimens collected. Recommendation: - No significant esophageal varices or portal gastropathy. Can stop octreotide at this time. - Esophageal stricture not dilated as dilatation could be a source for recurrent bleeding. May need future dilatation. - 2 duodenal ulcers 1 with active bleeding endoscopic treatment with hemostasis. - Treat H. pylori if present. Long-term PPI therapy recommended. Procedure Code(s): - 71053, Esophagogastroduodenoscopy, flexible, transoral; with control of bleeding, any method Diagnosis Code(s): - K22.2, Esophageal obstruction - K92.2, Gastrointestinal hemorrhage, unspecified - K31.89, Other diseases of stomach and duodenum - K26.9, Duodenal ulcer, unspecified as acute or chronic, without hemorrhage or perforation - K26.4, Chronic or unspecified duodenal ulcer with hemorrhage CPT(R) - 2022 copyright [employer]. All Rights Reserved. The CPT codes, CCI edits and ICD codes generated are intended as suggestions and were generated based on input data. These codes are preliminary and upon special procedures tech review may be revised to meet current compliance and payer requirements. The provider is responsible for the final determination of appropriate codes, and modifiers. Otto Kirk MD This document has been electronically signed. Note Initiated:09/10/2024 Note Completed:09/10/2024 3:44 PM [id number]
--- NOTE | 2024-09-10 16:05 | Anesthesiology Progress Note ---
Date of Service September 10, 2024 Anesthesia Post Procedure Vital Signs Vital Signs: Temp Pulse Pulse Resp BP BP BP 09/10/24 15:52 62 20 128/72 09/10/24 15:47 57 L 09/10/24 15:37 66 20 125/62 09/10/24 15:04 36.5 C 58 L 15 132/72 09/10/24 11:22 36.6 C 53 L 17 93/59 L 09/10/24 08:00 66 09/10/24 07:24 36.7 C 63 20 108/51 L 09/10/24 02:34 36.8 C 61 20 113/68 09/10/24 00:48 37.0 C 62 18 90/60 L 09/09/24 23:50 37.2 C 70 18 98/63 L 09/09/24 22:50 65 18 96/62 L 09/09/24 22:20 37.0 C 64 17 98/64 L 09/09/24 22:08 62 09/09/24 22:05 37.2 C 62 18 98/52 L 09/09/24 21:50 37.1 C 61 18 93/52 L 09/09/24 20:54 76 110/73 09/09/24 20:25 09/09/24 19:11 36.8 C 64 18 120/64 09/09/24 16:09 36.6 C 63 18 96/61 L Pulse Ox O2 Del Method O2 Flow Rate 09/10/24 15:52 97 Room Air 09/10/24 15:47 09/10/24 15:37 96 Room Air 09/10/24 15:04 94 Room Air 09/10/24 11:22 97 Room Air 09/10/24 08:00 09/10/24 07:24 95 Room Air 09/10/24 02:34 90 Room Air 09/10/24 00:48 09/09/24 23:50 94 0 09/09/24 22:50 09/09/24 22:20 94 0 09/09/24 22:08 09/09/24 22:05 93 0 09/09/24 21:50 93 0 09/09/24 20:54 09/09/24 20:25 Room Air 09/09/24 19:11 94 Room Air 09/09/24 16:09 90 Room Air Pain Intensity Head: Pain Intensity: 5 Transfer of Care Handoff Completed per policy Notes Mental Status: alert / awake / arousable Patient Amnestic to Procedure: Yes Nausea / Vomiting: adequately controlled Pain: adequately controlled Airway Patency, RR, SpO2: stable & adequate BP & HR: stable & adequate Hydration State: stable & adequate Anesthetic Complications: no major complications apparent and Pt Satisfied with anesthetic care
[2024-09-10] MEDS: ONDANSETRON INJ 2 MG/ML 2 ML VIAL IV ONE (16:10)
--- NOTE | 2024-09-10 16:47 | Hospitalist Progress Note ---
Date of Service September 10, 2024 Assessment & Plan (1) Hematemesis: Plan: Patient with hematemesis and drop in Hgb to 8.0 from baseline 12. Does have a history of use of Aleve. Was started on IV Protonix and briefly on octreotide drip in case of varices given liver issues EGD on 09/10 shows moderate esophageal stenosis which was not dilated, and 2 duodenal ulcers, 1 with visible vessel which was treated and the other with some oozing of blood. Hemoglobin stable after 1 unit PRBCs on 09/09 transfusion at 9.1. -No esophageal varices found-discontinue ceftriaxone -Continue Protonix drip and convert to Protonix 40 Mg p.o. twice daily prior to discharge -Esophageal stricture will need to be potentially dilated at a future [id number] with GI. GI recommends caution with eating meat-clear liquids for now and advance as tolerated -Discontinue octreotide, Carafate -Discontinue NSAIDs -Follow CBC (2) Liver mass: Plan: US Liver noted cholelithiasis with possible acute cholecystitis (denied abdominal pain), HOWEVER also noted 5.7cm liver mass with indeterminate appearance-metastatic disease or primary liver malignancy possible MRI liver shows likely cirrhotic chronic parenchymal disease of the liver, and a left hepatic exophytic focal lesion measuring 4.3 x 4.8 x 5.8 cm suggestive of hepatocellular carcinoma, and cholelithiasis without acute cholecystitis GI recommended AFP-drawn and is normal Heme/onc consulted-recommends IR guided biopsy-plan for 09/11 (3) Acute hypoxemic respiratory failure: Plan: Initially presented with fever/chills, SOB/dysuria w/ new onset CHF/possible RI with elevated troponin. ECHO w/ elevated RVSP w/ dilated R ventricle suspicious for underlying lung disease. CT chest negative for PE and pneumonia. Pneumonia ruled out Initially treated with IV diuresis w/ lasix IV initially, then switched to spironolactone given cirrhosis- however placed on hold with acute GI bleed Treated with antibiotics for pneumonia but now discontinued (4) UTI (urinary tract infection): Plan: Presented with urinary symptoms and abnormal urinalysis. Urine cx with E. coli. Has now completed greater than 7 days of ceftriaxone-discontinue Blood cultures with 3/4 Staphylococcus epidermidis-ID consulted and thinks this is a contaminant Repeat blood cultures also with contaminant Janibacter hoylei No need for further antibiotics (5) Hyponatremia: Plan: Sodium mildly low at 131, asymptomatic, with possible cirrhosis. TSH wnl, cortisol level not low. -Holding diuretics, follow BMP (6) Non-ST elevation RI (NSTEMI): Plan: ECHO w/o wma, cardiology consulted and did not feel cardiac in nature. Suspected demand ischemia from infection/above No significant events on telemetry (7) Moderate pulmonary hypertension: Plan: Secondary to underlying ELISE vs primary lung disease-now on room air Pulm consulted, appreciate assistance/recs-initially recommended diuretics but now on hold will need outpt PFT testing Plan DVT prophylaxis:SCDs, avoid anticoagulation due to GI bleed Dispo: continued inpatient stay on PCU, improving, plan for liver biopsy in 09/11 and to SNF/rehab in 1 to 2 days Admission and Anticipated Discharge Date Admission Date: September 03, 2024 Subjective Patient seen after return from EGD. She reports some dark stool this morning but no bright red bleeding. Denies abdominal pain, no shortness of breath or chest pain. She is agreeable to have liver biopsy. I discussed her care with oncology. Telemetry with normal sinus rhythm, first-degree AV block and sinus bradycardia with rates in the 50s to 60s Physical Exam Constitutional: WD/WN, vitals as above Respiratory: normal respiratory effort, lungs clear to auscultation Cardiovascular: RRR, no murmur, no edema Gastrointestinal (Abdomen): normal bowel sounds, soft, nontender, no hepatosplenomegaly Psychiatric: A+Ox3, euthymic affect Results & Data Results & Data Vital Signs (Past 12 Hours) Vital Signs Temp Pulse Pulse Resp BP BP Pulse Ox 09/10/24 16:39 37.0 C 54 L 17 124/67 92 09/10/24 16:20 54 L 17 138/63 94 09/10/24 16:05 56 L 20 117/53 L 91 09/10/24 15:52 62 20 128/72 97 09/10/24 15:47 57 L 09/10/24 15:37 66 20 125/62 96 09/10/24 15:04 36.5 C 58 L 15 132/72 94 09/10/24 11:22 36.6 C 53 L 17 93/59 L 97 09/10/24 08:00 66 09/10/24 07:24 36.7 C 63 20 108/51 L 95 O2 Del Method 09/10/24 16:39 Room Air 09/10/24 16:20 Room Air 09/10/24 16:05 Room Air 09/10/24 15:52 Room Air 09/10/24 15:47 09/10/24 15:37 Room Air 09/10/24 15:04 Room Air 09/10/24 11:22 Room Air 09/10/24 08:00 09/10/24 07:24 Room Air Laboratory Results CBC, BMP, magnesium, AFP, LFTs reviewed Blood cultures reviewed PG Care Time/CCT Total # of Minutes Spent Total Time Spent with Patient: Total time spent is greater than 50% in coordination of care (as documented) at patient's floor/unit and/or counseling patient: Coding Level of Care Code 30226 SUB INP/OBS CARE 3/50MIN Diagnoses Hematemesis K92.0 Liver mass R16.0 Acute hypoxemic respiratory failure J96.01 UTI (urinary tract infection) N39.0 Hyponatremia E87.1 Non-ST elevation RI (NSTEMI) I21.4 Moderate pulmonary hypertension I27.20
[2024-09-10] MEDS: PROPOFOL IV EMULSION 10 MG/ML 20 ML VIAL IV ONE (17:17)
[2024-09-10] MEDS: LIDOCAINE 2% 2 ML VIAL/AMP(20MG/ML) INFIL ONE ×2 (17:17)
[2024-09-10] MEDS: ePHEDrine sulfate 50 MG/ML AMP ONE (17:18)
[2024-09-10] MEDS: PHENYLEPHRINE 100MCG/ML 5ML SYR ONE (17:18)
[2024-09-11 06:20] LABS: Hematocrit (blood only) 24.8 % (37.0-47.0); Hemoglobin 8.3 g/dl (12.0-16.0); Mean Corpuscular Hemoglobin 31.6 pg (25.0-34.0); Mean Corpuscular Hgb Conc 33.5 g/dL (32.0-36.0); Mean Corpuscular Volume 94.3 fL (80.0-100.0); Mean Platelet Volume 11.3 fL (9.4-12.4); Platelet Count 202 K/uL (130-400); RDW Coefficient of Variation 19.3 % (11.5-14.5); RDW Standard Deviation 61.7 fL (36.4-46.3); Red Blood Count 2.63 M/uL (4.20-5.40); White Blood Count 9.04 K/ul (4.8-10.8)
[2024-09-11 10:56] LABS: Albumin Level 2.4 gm/dl (3.4-5.0); Bilirubin Direct 0.5 mg/dl (0-0.2); Bilirubin,Total 1.2 mg/dl (0.2-1.0); Calcium 7.9 mg/dl (8.6-10.3); Creatinine Clr Calc Pharmacy 60.6 ml/min; Potassium 4.4 mmol/L (3.5-5.1); Total Protein 5.5 gm/dl (6.0-8.3)
--- NOTE | 2024-09-11 10:57 | Gastroenterology Progress Note ---
Date of Service September 11, 2024 Assessment & Plan (1) Duodenal ulceration: Plan: -Continue IV Protonix; would plan to continue PPI therapy long-term on discharge and discontinue NSAID use. -Continue to monitor H/H -Continue to monitor for overt GI bleeding (2) Liver mass: Plan: -Patient reports she is to have an IR guided liver biopsy today (3) Esophageal stricture: Plan: -Will need EGD as an outpatient for dilatation when acute hospital issues have been addressed Admission and Anticipated Discharge Date Admission Date: September 03, 2024 Supervising Physician Co-Signing Physician Notes Clinically there is been a cessation of bleeding. Patient for liver biopsy hepatic mass suspicious for hepatoma but negative alpha-fetoprotein. Patient wants a firm diagnosis. She had an esophageal stricture was not dilated this patient with active bleeding is we could have created a second source for bleeding. Pending on clinical course could consider a esophageal dilatation in 2 to 3 months. In meantime mechanical soft diet cut things small chew them well. Subjective Patient is a 69 yo female who underwent an EGD on 09/10/24 that showed an esophageal stenosis & duodenal ulceration. She is on IV Protonix gtt at present. She denies any GI bleeding overnight. H/H is 8.3/24.8. BUN 26. Review of Systems Constitutional: no fever and no chills Respiratory: no cough and no dyspnea Cardiovascular: no chest pain Gastrointestinal: + abdominal pain Psychiatric: no problem reported Physical Exam Constitutional: well developed Respiratory: normal respiratory effort Gastrointestinal (Abdomen): normal bowel sounds, soft, nontender, no hepatosplenomegaly Psychiatric: Orientation: alert and oriented x 3 Results & Data Results & Data Vital Signs (Past 12 Hours) Vital Signs Temp Pulse Resp BP Pulse Ox O2 Del Method 09/11/24 08:16 36.7 C 60 18 107/69 90 Room Air 09/11/24 03:08 37.0 C 56 L 16 97/60 L 92 Room Air 09/10/24 23:06 36.4 C L 57 L 18 97/59 L 93 Room Air PG Care Time/CCT Total # of Minutes Spent Total Time Spent with Patient: Total time spent is greater than 50% in coordination of care (as documented) at patient's floor/unit and/or counseling patient: Coding Level of Care Code 40551 SUB INP/OBS CARE 3/50MIN Diagnoses Duodenal ulceration K26.9 Liver mass R16.0 Esophageal stricture K22.2
--- NOTE | 2024-09-11 14:47 | Ultrasound Report ---
Ultrasound guided liver lesion core biopsy INDICATION: Multiple hepatic lesions PROCEDURE: Procedure and risks were explained. Informed consent was obtained. A final timeout was com pleted. The abdomen was prepped and draped in sterile fashion. 1% lidocaine was utilized for skin ane sthesia. Utilizing ultrasound guidance, a 17-gauge coaxial needle was advanced into the left lobe liver lesion . Ultrasound images were obtained. An 18-gauge core biopsy needle was advanced, and 3 cores were obta ined and sent to the lab. The coaxial needle was removed and Band-Aid applied. The patient tolerated the procedure well. Vital signs be monitored postprocedure. IMPRESSION: Left lobe liver lesion core biopsy as above. Performed, dictated, and signed by Jim Lopez PA-C; to be co-signed by Dr. Modesto Dotson. Electronically signed by: Modesto Dotson M.D. 09/11/2024 2:54 PM
--- NOTE | 2024-09-11 15:42 | Hospitalist Progress Note ---
Date of Service September 11, 2024 Assessment & Plan (1) Hematemesis: Plan: Patient with hematemesis and drop in Hgb to 8.0 from baseline 12. Does have a history of use of Aleve. Was started on IV Protonix and briefly on octreotide drip in case of varices given liver issues/liver mass. Initially on ceftriaxone and octreotide empirically in case of bleeding esoph varices but then discontinued EGD on 09/10 showed moderate esophageal stenosis which was not dilated, and 2 duodenal ulcers, 1 with visible vessel which was treated and the other with some oozing of blood. Transfused 1 unit PRBCs on 09/09. Hgb fairly stable at 8.3 Passing old melena but hemodynamically stable -Continue Protonix drip and convert to Protonix 40 Mg p.o. twice daily on 09/12 -Esophageal stricture will need to be potentially dilated at a future date in 2- 3 [id number] with GI. GI recommends caution with eating meat-adv diet to mech soft -avoid future NSAIDs -Follow CBC in AM (2) Liver mass: Plan: US Liver noted cholelithiasis with possible acute cholecystitis (denied abdominal pain), HOWEVER also noted 5.7cm liver mass with indeterminate appearance-metastatic disease or primary liver malignancy possible MRI liver shows likely cirrhotic chronic parenchymal disease of the liver, and a left hepatic exophytic focal lesion measuring 4.3 x 4.8 x 5.8 cm suggestive of hepatocellular carcinoma, and cholelithiasis without acute cholecystitis GI recommended AFP-drawn and is normal. GI thinks appears to be a hepatoma Heme/onc consulted-recommends IR guided biopsy-completed on 09/11-Path pending (3) Acute hypoxemic respiratory failure: Plan: Initially presented with fever/chills, SOB/dysuria w/ new onset CHF/possible IL with elevated troponin. ECHO w/ elevated RVSP w/ dilated R ventricle suspicious for underlying lung disease. CT chest negative for PE and pneumonia. Pneumonia ruled out Initially treated with IV diuresis w/ lasix IV initially, then switched to spironolactone given cirrhosis- however placed on hold with acute GI bleed Treated with antibiotics for pneumonia but now discontinued Now weaned off O2 to room air (4) UTI (urinary tract infection): Plan: Presented with urinary symptoms and abnormal urinalysis. Urine cx with E. coli. Has now completed greater than 7 days of ceftriaxone-discontinue Blood cultures with 3/4 Staphylococcus epidermidis-ID consulted and thinks this is a contaminant Repeat blood cultures also with contaminant Janibacter hoylei No need for further antibiotics (5) Hyponatremia: Plan: Sodium mildly low at 131 and now improved to 134, asymptomatic, with possible cirrhosis. TSH wnl, cortisol level not low. -Holding diuretics, follow BMP (6) Non-ST elevation IL (NSTEMI): Plan: ECHO w/o wma, cardiology consulted and did not feel cardiac in nature. Suspected demand ischemia from infection/above No significant events on telemetry (7) Moderate pulmonary hypertension: Plan: Secondary to underlying ELISE vs primary lung disease-now on room air Pulm consulted, appreciate assistance/recs-initially recommended diuretics but now on hold will need outpt PFT testing Plan DVT prophylaxis:SCDs, avoid anticoagulation due to GI bleed Dispo: continued inpatient stay on PCU, improving, will be stable for dc on 09/12-PT/OT recommend rehab but pt thinks she might be able to go home as feels stronger Admission and Anticipated Discharge Date Admission Date: September 03, 2024 Anticipated date of discharge: 09/12/24 Subjective Some dark stool small amount this AM, but no clovis blood. No nausea, tolerating full liquids No lightheadedness, feels stronger. Tele with NSR 60-80s Physical Exam Constitutional: WD/WN, vitals as above Respiratory: normal respiratory effort, lungs clear to auscultation Cardiovascular: RRR, no murmur, no edema Gastrointestinal (Abdomen): normal bowel sounds, soft, nontender, no hepatosplenomegaly Psychiatric: A+Ox3, euthymic affect Results & Data Results & Data Vital Signs (Past 12 Hours) Vital Signs Temp Pulse Resp BP Pulse Ox O2 Del Method 09/11/24 12:10 36.6 C 57 L 18 109/59 L 93 Room Air 09/11/24 08:16 36.7 C 60 18 107/69 90 Room Air Laboratory Results CBC, CMP reviewed PG Care Time/CCT Total # of Minutes Spent Total Time Spent with Patient: Total time spent is greater than 50% in coordination of care (as documented) at patient's floor/unit and/or counseling patient: Coding Level of Care Code 80219 SUB INP/OBS CARE 2/35MIN Diagnoses Hematemesis K92.0 Liver mass R16.0 Acute hypoxemic respiratory failure J96.01 UTI (urinary tract infection) N39.0 Hyponatremia E87.1 Non-ST elevation IL (NSTEMI) I21.4 Moderate pulmonary hypertension I27.20
[2024-09-11] MEDS: fentaNYL citrate PF 100 MCG/2 ML VIAL ONE (16:40)
[2024-09-12 06:48] LABS: Basophils # (auto) 0.04 K/uL (0.00-0.20); Basophils % (auto) 0.6 %; Eosinophils # (auto) 0.18 K/uL (0.00-0.50); Eosinophils % (auto) 2.8 %; Hematocrit (blood only) 24.9 % (37.0-47.0); Hemoglobin 8.2 g/dl (12.0-16.0); Immature Granulocytes # (auto) 0.14 K/uL (0.01-0.20); Immature Granulocytes % (auto) 2.2 %; Lymphocytes # (auto) 2.29 K/uL (1.20-3.40); Lymphocytes % (auto) 36.2 %; Mean Corpuscular Hemoglobin 31.4 pg (25.0-34.0); Mean Corpuscular Hgb Conc 32.9 g/dL (32.0-36.0); Mean Corpuscular Volume 95.4 fL (80.0-100.0); Mean Platelet Volume 11.3 fL (9.4-12.4); Monocytes # (auto) 0.43 K/uL (0.11-0.59); Monocytes % (auto) 6.8 %; Neutrophils # (auto) 3.25 K/uL (1.40-6.50); Neutrophils % (auto) 51.4 %; Platelet Count 188 K/uL (130-400); RDW Coefficient of Variation 19.6 % (11.5-14.5); RDW Standard Deviation 61.6 fL (36.4-46.3); Red Blood Count 2.61 M/uL (4.20-5.40); White Blood Count 6.33 K/ul (4.8-10.8)
[2024-09-12 07:24] LABS: Albumin Globulin Ratio 0.7 (0.9-2); Albumin Level 2.2 gm/dl (3.4-5.0); BUN Creatinine Ratio 19.4 (10-20); Bilirubin,Total 1.1 mg/dl (0.2-1.0); Calcium 7.9 mg/dl (8.6-10.3); Creatinine Clr Calc Pharmacy 59.9 ml/min; Magnesium 1.9 mg/dl (1.7-2.4); Potassium 4.3 mmol/L (3.5-5.1); Total Protein 5.2 gm/dl (6.0-8.3)
[2024-09-12 08:19] VITALS: RESP 18; TEMP 97.9
[2024-09-12] MEDS: PANTOprazole 40 MG TAB PO SCH (10:10)
[2024-09-12 11:43] VITALS: PULSE 58; O2SAT 95
--- NOTE | 2024-09-12 12:21 | Discharge Summary ---
Discharge Summary Date of Service September 12, 2024 Principal Dx & Hospital Course #1 = Principal Diagnosis (1) Hematemesis: Patient with hematemesis and drop in Hgb to 8.0 from baseline 12. Does have a history of use of Aleve. Was started on IV Protonix and briefly on octreotide drip in case of varices given liver issues/liver mass. Initially on ceftriaxone and octreotide empirically in case of bleeding esoph varices but then discontinued EGD on 09/10 showed moderate esophageal stenosis which was not dilated, and 2 duodenal ulcers, 1 with visible vessel which was treated and the other with some oozing of blood. Transfused 1 unit PRBCs on 09/09. Hgb remained stable for several days at at 8.2 and remains hemodynamically stable -received Protonix drip for many days and converted to Protonix 40 Mg p.o. twice daily on 09/12-continue for at least 2 months -Esophageal stricture will need to be potentially dilated at a future date in 2- 3 it-[id number]-yt with GI. GI recommends caution with eating meat- mech soft -avoid future NSAIDs -Follow CBC in one week as outpt (2) Liver mass: US Liver noted cholelithiasis with possible acute cholecystitis (denied abdominal pain), HOWEVER also noted 5.7cm liver mass with indeterminate appearance-metastatic disease or primary liver malignancy possible MRI liver shows likely cirrhotic chronic parenchymal disease of the liver, and a left hepatic exophytic focal lesion measuring 4.3 x 4.8 x 5.8 cm suggestive of hepatocellular carcinoma, and cholelithiasis without acute cholecystitis GI recommended AFP-drawn and is normal. GI thinks appears to be a hepatoma Heme/onc consulted-recommends IR guided biopsy-completed on 09/11-Path pending at time of discharge and will require follow up after discharge with GI and PCP, possibly Oncology (3) Acute hypoxemic respiratory failure: Initially presented with fever/chills, SOB/dysuria w/ new onset CHF/possible AK with elevated troponin. ECHO w/ elevated RVSP w/ dilated R ventricle suspicious for underlying lung disease. CT chest negative for PE and pneumonia. Pneumonia ruled out Initially treated with IV diuresis w/ lasix IV initially, then switched to spironolactone given cirrhosis- however placed on hold with acute GI bleed and will not start at this time-defer to GI as outpt Treated with antibiotics for pneumonia but now discontinued Now weaned off O2 to room air (4) UTI (urinary tract infection): Presented with urinary symptoms and abnormal urinalysis. Urine cx with E. coli. Has now completed greater than 7 days of ceftriaxone-discontinue Blood cultures with 3/4 Staphylococcus epidermidis-ID consulted and thinks this is a contaminant Repeat blood cultures also with contaminant Janibacter jefylei No need for further antibiotics (5) Hyponatremia: Sodium mildly low at 131 and now improved to 135, asymptomatic, with possible cirrhosis. TSH wnl, cortisol level not low. -Holding diuretics on discharge (6) Non-ST elevation AK (NSTEMI): ECHO w/o wma, cardiology consulted and did not feel cardiac in nature. Suspected demand ischemia from infection/above No significant events on telemetry (7) Moderate pulmonary hypertension: Secondary to underlying ELISE vs primary lung disease-now on room air Pulm consulted, appreciate assistance/recs-initially recommended diuretics but then stopped due to GI bleeding and hyponatremia will need outpt PFT testing No need for diuretics at this time Plan DVT prophylaxis:SCDs, avoided anticoagulation due to GI bleed Dispo: stable for dc to home with home health-PT/OT recommend rehab but now much stronger and well enough for home-independent with walker and walking halls Notes For Next Care Provider Check CBC in 1 week Follow up pathology of liver biopsy Medication Changes From Visit Added Protonix 40mg po bid Admission HPI Per Admitting Provider Ti Tian is a 69-year-old female with a past medical history of hypothyroidism, anxiety/depression who presents with weakness, cough, and a fall. She has been weak and fatigued for 4 days, and has had a cough productive for yellowish sputum. On presentation she is hypotensive, hypoxic, and fatigue appearing. She has some right knee pain after reporting that she felt at the ground after her legs gave out which caused her to land on her right knee and hip. She did not have any presyncope/syncope, but felt that she was just too weak and her legs gave out. WBC 13.05 VBG is with mild respiratory alkalosis Troponin 567, repeat 529. BNP 2036 CTAchest: No PE, no solid date of pneumonia, no pleural effusion. Finding suggestive of PAH. Review? Some hazy opacities of the right lower lobe. X-ray hip/pelvis/right knee: No fractures BioFire negative Per patient about 4 days ago she started to have more shortness of breath, cough, prodcutive cough for thick yellow sputum, and fatigue. She endorses shaking chills around 4 days ago, they have seemed to continue the last few days. Did have jeremy echest discomfort under her sternum which has not recurrent since yesterday. Happened around 4 days ago and yesterday, only lasted 1-2 minutes. No sweating, actually felt freezing and shakey when it happened. She has had dysuria for the last 4 days with polyuria and urgency no abdominal appetite. Poor appetite. Has had some loose bowels without blood or melena. Medical History: Reviewed Medications: Reviewed Surgical History: Reviewed Family history: Reviewed Allergies: Reviewed. NKMA. Social History: No tobacco. Very rare alcohol use. Code Status: Adis Tian her son would be surrogate DM. DNR/DNI, discussed with aptient on admit. [facility] [place] last note reviewed: Hypertension well-controlled Hypothyroidism stable Anxiety as noted Resting tremors although with variable response to propranolol History of peptic ulcer, stable EKG: Normal sinus rhythm, incomplete right bundle branch block, QT 501. Discharge Exam Constitutional WD/WN, vitals as above Respiratory normal respiratory effort, lungs clear to auscultation Cardiovascular RRR, no murmur, no edema Gastrointestinal (Abdomen) normal bowel sounds, soft, nontender, no hepatosplenomegaly Psychiatric A+Ox3, euthymic affect Discharge Plan Discharge Items Patient Disposition: Home - Home Health Services Reason For Visit: SEPSIS, CHF Discharge Diagnosis: Upper GI Bleeding from duodenal ulcers Acute blood loss anemia Liver mass Liver cirrhosis UTI Condition on Discharge: Good Activity: As commented below Lifting: Gradually increase as tolerated Bathing: No limitations Exercise/Sports: Gradually increase as tolerated Non-emergency contact: Primary Care Provider and Railroad Worker Call non-emergency contact if: you have any medication questions and your symptoms worsen Follow-up/Referrals: Destini Alexandra DO [Primary Care Provider] - (Follow up within 1-2 weeks) Otto Kirk MD [Physician] - (Please follow up within 2 weeks) Diet: Heart Healthy Diet Texture: Dental soft (bite-sized) Addtl Attending Provider Instructions: You were admitted with a UTI and then had a GI bleed from ulcers and were found to have a mass in your liver. You were treated with antibiotics for the UTI. You had an EGD which found two ulcers in your duodenum which were treated to stop bleeding. Your blood count has remained stable for several days and you have had no further bleeding. You will need to stay on the antacid called Protonix twice a day for at least a few months. You also had a narrowing of your esophagus. You should not eat chunks of meat and the GI doctor plans to dilate/stretch out the esophagus with another EGD in the future after you rec over from this illness. Please follow up with the GI doctor. Please have your PCP check a blood count in 1 week. You had a biopsy of a mass in your liver and the results are still pending. They may not be available until next week. Once these results return, you will be contacted. Pending Studies at Discharge: Yes (liver biopsy results, Vitamin B1 level) Stand-Alone Forms: My [facility] [place], Smoking Cessation Medications and DC Order Prescriptions: New pantoprazole 40 mg Tablet,Delayed Release (Dr/Ec) 40 mg PO BID Qty: 60 0RF Continued alprazolam 0.5 mg tablet 0.5 mg PO DAILY propranolol 20 mg tablet 20 mg PO BID sertraline 50 mg tablet 50 mg PO DAILY levothyroxine 112 mcg tablet 112 mcg PO DAILY multivitamin [Multi-Vitamin] Tablet 1 tab PO DAILY Discontinued potassium 1 tab PO DAILY Rx Instructions: OTC unknown dose Discharge Orders: Discharge Order (Routine); Ordered 09/12/24 Ordered By: Marisabel Carlson Admission Data Admit Date/Time: 09/03/24 16:36 Attending Provider: Marisabel Carlson Admit Provider: Chris Sterling Primary Care Provider: Destini Alexandra Other Providers: Chris Sterling; Aramis Yarbrough; Master Ames; Otto Kirk; Samuel Hi Valrico; J Luis Merlos; Madhuri Martins Hospital Stay Data Consultations 09/03/24 15:10 ED Decision to Admit Stat 09/04/24 09:03 Consult Cardiology Routine 09/04/24 14:09 Consult Pulmonology Routine 09/04/24 14:49 Consult Infectious Diseases Routine 09/05/24 11:23 Consult Gastroenterology Routine 09/06/24 07:37 Consult Oncology Routine 09/06/24 11:24 Consult Palliative Care Routine Procedures Performed Operation Date: 09/10/24 16:30 Actual Procedures p EGD Hemostasis - Otto Kirk MD Diagnostic Imagining Performed 09/03/24 12:47 CT angio chest PE protocol Stat 09/05/24 12:25 US abdomen limited Routine 09/06/24 00:27 MR abdomen wo/w con Routine 09/11/24 IR biopsy liver US Routine Discharge Instructions Given to Patient (Per Discharging Provider) You were admitted with a UTI and then had a GI bleed from ulcers and were found to have a mass in your liver. You were treated with antibiotics for the UTI. You had an EGD which found two ulcers in your duodenum which were treated to stop bleeding. Your blood count has remained stable for several days and you have had no further bleeding. You will need to stay on the antacid called Protonix twice a day for at least a few months. You also had a narrowing of your esophagus. You should not eat chunks of meat and the GI doctor plans to dilate/stretch out the esophagus with another EGD in the future after you recover from this illness. Please follow up with the GI doctor. Please have your PCP check a blood count in 1 week. You had a biopsy of a mass in your liver and the results are still pending. They may not be available until next week. Once these results return, you will be contacted. Total Time Total Time Spent Total Time Spent (In Minutes): 35 min Total Time Includes: Examination of the Patient, Discharge Planning and Medication Reconciliation Coding Level of Care Code 84265 INP/OBS DISCH >30 MIN Diagnoses Hematemesis K92.0 Liver mass R16.0 Acute hypoxemic respiratory failure J96.01 UTI (urinary tract infection) N39.0 Hyponatremia E87.1 Non-ST elevation AK (NSTEMI) I21.4 Moderate pulmonary hypertension I27.20
[2024-09-12 14:30] VITALS: BP 134/80
== END 2024-09-12 15:52 | disposition home health service (06) | DRG 871 ==
LOC: ED 12:25 → 4W 16:36 → SUATTDRO 16:36 → 4W 17:56